=== PATIENT | female | born 1980 | race Caucasian/White ===

== ENCOUNTER 2022-08-21 13:52 | Outpatient (CLI) | payer OTHER, MEDICAID, SELFPAY ==
--- NOTE | 2022-08-21 14:00 | CRLHL7_ITS ---
For Patients: As a result of the Cures Act, medical imaging exams and procedure reports are released immediately into your electronic medical record. You may view this report before your referring provider. If you have questions, please contact your health care provider. BILATERAL SCREENING MAMMOGRAM WITH COMPUTER-AIDED DETECTION AND TOMOSYNTHESIS TECHNIQUE: CC and MLO views were obtained. These mammographic images have been obtained using full-field digital technique. These mammographic images were interpreted with the benefit of computer-aided detection. Breast Tomosynthesis was used in this interpretation. COMPARISON FILM: 03/14/2021. FINDINGS: The breasts are heterogeneously dense, which may obscure small masses IMPRESSION: There is no radiographic evidence for malignancy. ASSESSMENT: BI-RADS Category 1: Negative RECOMMENDATION: Routine screening mammogram in 1 year. A lay language report of this examination will be provided to the patient. Gonzalez Romo M.D. Diagnostic Radiologist [email or web address] Transcribed: 7:50 p.m. JANINA/Dictated by: Gonzalez Romo MD @ 08/22/2022 12:37:00 PM (Electronically Signed)
== END 2022-08-21 13:53 | disposition home or self-care (01) ==
PROVIDERS: PCP Family Medicine; Visit Provider Obstetrics & Gynecology
DX: Z12.31 Encounter for screening mammogram for malignant neoplasm of breast (principal); R92.2 Inconclusive mammogram
CPT/HCPCS: 77063; 77067

== ENCOUNTER 2022-10-10 11:58 | Outpatient (CLI) | payer OTHER, MEDICAID, SELFPAY ==
[2022-10-10 21:40] LABS: Cholesterol* 156 mg/dL (90-199)
[2022-10-10 21:41] LABS: Glucose* 79 mg/dL (60-115); HDL Cholesterol* 71 mg/dL (>=50); LDL Cholesterol Calculated 73 mg/dL (<100); Triglycerides* 60 mg/dL (40-149)
[2022-10-10 21:54] LABS: Vitamin D 25 Hydroxy* 20 ng/mL (30-80)
== END 2022-10-10 11:59 | disposition home or self-care (01) ==
PROVIDERS: PCP Family Medicine; Visit Provider Obstetrics & Gynecology
DX: Z13.1 Encounter for screening for diabetes mellitus (principal); Z13.6 Encounter for screening for cardiovascular disorders; Z86.39 Personal history of other endocrine, nutritional and metabolic disease; Z13.29 Encounter for screening for other suspected endocrine disorder
CPT/HCPCS: 80061; 82306; 82947

== ENCOUNTER 2022-11-05 14:54 | Outpatient (CLI) | payer OTHER, MEDICAID, SELFPAY ==
--- NOTE | 2022-11-05 15:00 | CRLHL7_ITS ---
For Patients: As a result of the Century Cures Act, medical imaging exams and procedure reports are released immediately into your electronic medical record. You may view this report before your referring provider. If you have questions, please contact your health care provider. INDICATION: IRREGULAR BLEEDING COMPARISON: 05/25/2021 TECHNIQUE: 2D bassett scale and color Doppler images were acquired of the pelvis using a transabdominal and transvaginal approach. FINDINGS: Sonographic images demonstrate a normal size and smooth outer contour of the uterus. Uterus measures 8.2 cm in length by 3.6 cm in AP diameter by 5.0 cm in transverse dimension. The myometrium has a heterogeneous echotexture. No uterine fibroid. Partial septate endometrium again measuring 4 millimeters on the left and 4 millimeters on the right. A small amount of fluid is present within the right horn. The right ovary measures 2.9 x 1.6 x 2.1 cm in size and the left ovary measures 2.1 x 1.3 x 1.5 cm. The ovaries demonstrate normal arterial and venous blood flow on color Doppler analysis. There are no suspicious fluid collections within the cul-de-sac. IMPRESSION: The endometrium measures 4 millimeters within the right horn and 4 millimeters in the left horn. A small amount of fluid is present within the right endometrial horn. No uterine fibroid or polyp. Dictated by Gonzalez Romo MD @ 11/06/2022 8:45:02 AM (Electronically Signed)
== END 2022-11-05 14:55 | disposition home or self-care (01) ==
LOC: US 14:55
PROVIDERS: PCP Family Medicine; Visit Provider Physician Assistant
DX: N92.6 Irregular menstruation, unspecified (principal)
CPT/HCPCS: 76830; 76856

== ENCOUNTER 2023-08-22 09:01 | Outpatient (CLI) | payer OTHER, MEDICAID, SELFPAY ==
--- NOTE | 2023-08-22 09:15 | CRLHL7_ITS ---
For Patients: As a result of the Cures Act, medical imaging exams and procedure reports are released immediately into your electronic medical record. You may view this report before your referring provider. If you have questions, please contact your health care provider. BILATERAL SCREENING MAMMOGRAM WITH COMPUTER-AIDED DETECTION AND TOMOSYNTHESIS TECHNIQUE: CC and MLO views were obtained. These mammographic images have been obtained using full-field digital technique. These mammographic images were interpreted with the benefit of computer-aided detection. Breast Tomosynthesis was used in this interpretation. COMPARISON FILM: 08/21/22, 03/14/21. FINDINGS: There are scattered areas of fibroglandular density IMPRESSION: There is no radiographic evidence for malignancy. ASSESSMENT: BI-RADS Category 1: Negative RECOMMENDATION: Routine screening mammogram in 1 year. A lay language report of this examination will be provided to the patient. Gonzalez Romo M.D. Diagnostic Radiologist [email or web address] Transcribed: 1:16 p.haile monique/Dictated by: Gonzalez Romo MD @ 08/22/2023 10:23:00 AM (Electronically Signed)
== END 2023-08-22 09:02 | disposition home or self-care (01) ==
LOC: MAMMO 09:01
PROVIDERS: PCP Family Medicine; Visit Provider Obstetrics & Gynecology
DX: Z12.31 Encounter for screening mammogram for malignant neoplasm of breast (principal)
CPT/HCPCS: 77063; 77067

== ENCOUNTER 2023-11-04 09:59 | Outpatient (CLI) | payer OTHER, MEDICAID, SELFPAY | END 2023-11-04 10:00 | disposition home or self-care (01) | PROVIDERS: PCP Family Medicine; Visit Provider Obstetrics & Gynecology | DX: R10.2 Pelvic and perineal pain (principal); L65.9 Nonscarring hair loss, unspecified | CPT/HCPCS: 82671; 84144; 84443 ==

== ENCOUNTER 2023-12-04 10:31 | Outpatient (CLI) | payer OTHER, MEDICAID, SELFPAY | END 2023-12-04 10:32 | disposition home or self-care (01) | PROVIDERS: PCP Family Medicine; Visit Provider Family Medicine | DX: Z01.818 Encounter for other preprocedural examination (principal); E55.9 Vitamin D deficiency, unspecified; E53.8 Deficiency of other specified B group vitamins | CPT/HCPCS: 80048; 82306; 85025 ==

== ENCOUNTER 2023-12-17 06:56 | Day surgery (SDC) | payer OTHER, MEDICAID, SELFPAY ==
[2023-12-17] VITALS (29 sets, daily range): BP systolic 110–154; BP diastolic 58–100; PULSE 54–114; RESP 12–18; TEMP 36.1–37.2; O2SAT 95–100; BMI 40.8
--- OUTSIDE RECORDS SUMMARY | 2023-12-17 06:59 | XMS_ITS | Clinical Summary ---
Author Name Unknown Organization [facility] Address [address] [place] [address] Care Team Providers Care Wellness Nurse Rn Name Role Phone Unavailable Primary Care Provider Unavailabl e Source Comments Patient records contain information from all sites at [facility]. For routine questions regarding patient records, call [phone] during business hours, M-F 8:00 AM - 5:00 PM Central Time. Record requests for emergency care only can be directed to [phone] at any time.[facility] Allergies Active Allergy Reactions Criticality Noted Date Comments Adhesive Tape-Silicones Other (see comments) Propofol Other (see comments) 06/12/2010 Bee Pollen Anaphylaxis 08/19/2009 Droperidol Anxiety 12/03/2010 Metoclopramide Other (see comments) 06/24/2017 Ondansetron Other (see comments) 04/25/2013 feel like I am climbing the nayak. Phenothiazines Other (see comments) 01/18/2013 jittery Prochlorperazine Anxiety 12/03/2010 [place] Jelly Anaphylaxis 05/18/2009 Scopolamine Rash 07/29/2017 Sumatriptan Headache 06/28/2015 Medications Medication Sig Dispensed Refills Start Date End Date Status albuterol (for_PROVENTIL HFA,VENTOLIN HFA) 90 mcg/actuation inhaler Inhale 2 puffs every 4 (four) hours as needed (SOB). 0 Active HYDROcodone-acet aminophen (NORCO) 5-325 mg per tabletIndication s:Acute Pain Take 2 tablets by mouth every 6 (six) hours as needed for pain Indication: Acute Pain. 10 tablet 0 04/14/2019 Active norgestimate-eth inyl estradiol (SPRINTEC, 28,) 0.25- mg-35 mcg per tablet Take 1 tablet by mouth daily. Discard placebo week and start next pill pack 112 tablet 4 04/28/2019 Active EPINEPHrine 0.3 mg/0.3 mL injection syringe Inject 0.3 mL (0.3 mg total) intramuscularly as needed for anaphylaxis. 2 each 1 05/12/2023 Active Active Problems No known active problems Resolved Problems Problem Noted Date Diagnosed Date Resolved Date High Risk 04/07/2018 10/08/20 18 Elderly Multigravi da Greater Than 35 Year Old 04/07/2018 10/08/2018 Immunizations Name Administration Dates Next Due DTaP (Infanrix, Tripedia) 07/18/2007 Influenza (IM) Preservative Free 09/11/2010 Influenza, Unspecified 08/09/2014,08/04/2013 Tdap 05/19/2013 Family History Medical History Relation Name Comments Rashes / Skin problems Brother Skin cancer Brother Asthma Maternal Grandmother Breast cancer Maternal Grandmother Migraines Maternal Grandmother Ovarian cancer Maternal Grandmother Arthritis Mother Depression Mother Hypertension Mother Mental illness Mother Intellectual Disability Sister Learning disabilities Sister Seizures Sister Relation Name Status Comments Brother Maternal Grandmother Mother Sister Social History Tobacco Use Types Packs/Day Years Used Date Smoking Tobacco: Never Smokeless Tobacco: Never Alcohol Use Standard Drinks/Week Comments No 0 (1 standard drink = 0.6 oz pur e alcohol) prior:occ Nutrition Answer Date Recorded Nutrition: EVOO Fat Source Unknown 12/28 Nutrition: Servings of Fruits/Vegetables per Day Not on file 12/28/2020 Dental Answer Date Recorded Dental: Regular Dentist Unknown 12/29/19 21 Sex and Gender Information Value Date Recorded Sex Assigned at Female 03/09/2019 2:31 PM CDT Gender Identity Female 03/09/2019 2:31 PM CDT Sexual Orientation Straight 03/09/2019 2: 31 PM CDT Last Filed Vital Signs Vital Sign Reading Time Taken Comments Blood Pressure 125/77 05/12/2023 3:45 PM CDT Pulse 109 05/12/2023 4:00 PM CDT Temperature 37.4 ??C (99.3 ??F) 04/14/2019 5:30 PM CD T Respiratory Rate 23 05/12/2023 1:45 PM CDT Oxygen Saturation 97% 05/12/2023 4:00 PM CDT Inhaled Oxygen Concentration - - Weight 102 kg (223 lb 15.8 oz) 05/12/2023 1:00 P M CDT Height 157.5 cm (5' 2) 04/14/2019 1:59 PM CDT Body Mass Index 40.97 04/14/2019 1:59 PM CDT Plan of Treatment Health Maintenance Due Date Last Done Comments CT Colonography 1978 Cologuard 1978 Colonoscopy 1978 Colorectal Cancer Screening 1978 FIT 1978 Hepatitis C Screening 1978 Lipid (Cholesterol) Screening 1978 Hepatitis B Vaccines (2 of 3 - 19+ 3-dose series) 09/23/2020 08/26/2020 Mammogram 11/24/2020 11/24/2019 Fasting Glucose for Diabetes Screening 04/14/2022 04/14/2019, 04/27/2013, 01/14/2013, Additional history exists Cervical Cancer Screening 04/07/20232017, 04/07/2018, 12/30/2012 COVID-19 Vaccine (24 season) 2023 01/20/2021, 10/25/2020 Influenza Vaccine (#1) 2023 , 10/31/2019, 09/29/2018, Additional history exists Depression Screening (Annual PHQ-2) 10/28/2023 DTaP,Tdap,and Td Vaccines (4 - Td or Tdap) 11/04/2033 11/04/2023, 05/19/2013, 07/18/2007, Additional history exists HIV Screening Completed 04/07/2018, 12/30/2012 HPV Vaccines Aged Out No longer eligi ble based on patient's age to complete this topic Pneumococcal vaccine (0-64 years) Aged Out No longer eligible based on patient's age to complete this topic Medical Devices Implanted Type Area Printed Circuit Board Reworker Device Identifier Shelf Expiration Date Model / Serial / Lot Syn Neno Chua [id number] - Armando [id number] Implanted:Qty: 1 on 09/08/2010 Hardware e.g. pins/screws/ rods DepHexaTech Description:Device Manufactu rer - Synthes. Device Status Text - [id number]. Advance Directives For more information, please contact: [phone] Documents on File Type Date Recorded Patient Tattoo Artist Expl anation Advance Directives 09/08/2010 12:00 AM Elena dee document. See document viewer.
--- OUTSIDE RECORDS SUMMARY | 2023-12-17 06:59 | XMS_ITS | Referral Summary ---
Author Name Unknown Organization [facility] Address [address] [place] [address] Care Team Providers Care Casino Host Name Role Phone Unavailable Primary Care Provider Unavailabl e Source Comments Patient records contain information from all sites at [facility]. For routine questions regarding patient records, call [phone] during business hours, M-F 8:00 AM - 5:00 PM Central Time. Record requests for emergency care only can be directed to [phone] at any time.[facility] Allergies Active Allergy Reactions Criticality Noted Date Comments Adhesive Tape-Silicones Other (see comments) Propofol Other (see comments) 06/12/2010 Bee Pollen Anaphylaxis 08/19/2009 Droperidol Anxiety 12/03/2010 Metoclopramide Other (see comments) 06/24/2017 Ondansetron Other (see comments) 04/25/2013 feel like I am climbing the nayak. Phenothiazines Other (see comments) 01/18/2013 jittery Prochlorperazine Anxiety 12/03/2010 [place] Jelly Anaphylaxis 05/18/2009 Scopolamine Rash 07/29/2017 Sumatriptan [...] Free 09/11/2010 Influenza, Unspecified 08/09/2014,08/04/2013 Tdap 05/19/2013 Social History Tobacco Use Types Packs/Day Years [...] 04/14/2019 1:59 PM CDT Plan of Treatment Not on file Medical Devices Implanted Type Area Mine Inspector Federal Device Identifier Shelf Expiration Date Model / Serial / Lot Alexey Chua 5.0x150 - Armando [id number] Implanted:Qty: 1 on 09/08/2010 Hardware e.g. pins/screws/ rods Depuy Synthes Description:Device Manufactu rer - Synthes. Device Status Text - [id number]. Advance Directives For more information, please contact: [phone] Documents on File Type Date Recorded Patient Instructor Product Inspection Expl anation Advance Directives 09/08/2010 12:00 AM Elena dee document. See document viewer.
--- OUTSIDE RECORDS SUMMARY | 2023-12-17 06:59 | XMS_ITS | Encounter Summary ---
Author Name Unknown Organization [facility] Address [address] [place] [address] Care Team Providers Care Associate Trainer Name Role Phone Unavailable Primary Care Provider Unavailabl e Reason for Visit * Reason Comments Insect Bite Angioedema Patient was stung by a wasp, gave herself 2 epi pens Encounter Details Date Type Department Care Team ([facility] Contact Info) Description 05/12/2023 12:50 PM CDT - 05/12/2023 4:09 PM CDT Emergency [facility] [address] [place] [phone] Wenceslao Campbell P.A.-C. [address] [place] [address] [phone] Allergy Bee Sting Initial (Primary Dx) Discharge Disposition: Home or Self Care Social History Tobacco Use Types Packs/Day Years [...] Orientation Straight 03/09/2019 2: 31 PM CDT documented as of this encounter Last Filed Vital Signs Vital Sign Reading Time Taken Comments Blood Pressure 125/77 05/12/2023 3:45 PM CDT Pulse 109 05/12/2023 4:00 PM CDT Temperature - - Respiratory Rate 23 05/12/2023 1:45 PM CDT Oxygen Saturation 97% 05/12/2023 4:00 PM CDT Inhaled Oxygen Concentration - - Weight 102 kg (223 lb 15.8 oz) 05/12/2023 1:00 P M CDT Height - - Body Mass Index 40.97 04/14/2019 1:59 PM CDT documented in this encounter Discharge Instructions * Attachments The following attachments cannot be sent through Care Everywhere. * Bee Wasp or Hornet Sting Adult (Martiniquais) documented in this encounter Medications at Time of Discharge Medication Sig Dispensed Refills Start Date End Date albuterol (for_PROVENTIL HFA,VENTOLIN HFA) 90 mcg/actuation inhaler Inhale 2 puffs every 4 (four) hours as needed (SOB). 0 EPINEPHrine 0.3 mg/0.3 mL injection syringe Inject 0.3 mL (0.3 mg total) intramuscularly as needed for anaphylaxis. 2 each 1 05/12/2023 HYDROcodone-acetamin ophen (NORCO) 5-325 mg per tabletIndications:Ac kiana Pain Take 2 tablets by mouth every 6 (six) hours as needed for pain Indication: Acute Pain. 10 tablet 0 04/14/2019 norgestimate-ethinyl estradiol (SPRINTEC, 28,) 0.25- mg-35 mcg per tablet Take 1 tablet by mouth daily. Discard placebo week and start next pill pack 112 tablet 4 04/28/2019 documented as of this encounter ED Notes * Wenceslao Campbell P.A.-C. - 05/12/2023 4:09 PM CDT Images from the original note were not included. SUBJECTIVE CHIEF COMPLAINT/REASON FOR VISIT Insect Bite (/) and Angioedema (Patient was stung by a wasp, gave herself 2 epi pens) HISTORY OF PRESENT ILLNESS Patient presents emergency department chief complaint of wasp sting to right thumb. 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 Patient started having shortness of breath with chest tightness and sensation of throat tightening. She self administered x2 epinephrine autoinjector to left thigh. She states she had some improvement of symptoms but still felt like she was experiencing shortness of breath. Upon arrival patient is increased anxiety, tachypneic, able to speak complete sentences. She does have redness and swelling to her right thumb where the insect injected her dorsum of herthumb. Otherwise no acute hives formation seen. She is to injection points into her left anterior thigh. History provided by: Patient and significant other staff interpreter needed/used: no REVIEW OF SYSTEMS Constitutional: Negative for chills, diaphoresis and fatigue. HENT: Negative for rhinorrhea, sore throat, trouble swallowing and voice change. Eyes: Negative for louise-orbital edema and visual disturbance. Respiratory: Positive for cough, chest tightness, shortness of breath and wheezing. Negative for apnea and stridor. Cardiovascular: Negative for chest pain. Gastrointestinal: Negative for abdominal pain, nausea and vomiting. Musculoskeletal: Negative for myalgias. Skin: Negative for rash. Neurological: Negative for dizziness, weakness and light-headedness. OBJECTIVE Initial Vitals Temp -- Pulse Rate 05/12/23 1245 (!) 136 Heart Rate 05/12/23 1245 (!) 134 Resp Rate 05/12/23 1245 14 Blood Pressure 05/12/23 1245 (!) 153/131 SpO2 05/12/23 1245 100 % Pain Score 05/12/23 1247 8 PHYSICAL EXAMINATION Constitutional: Nursing note and vitals reviewed. Vital signs are normal. She is active and cooperative. HENT: Nose: Nose normal. No nasal discharge. Mouth/Throat: Uvula is midline and oropharynx is clear and moist. Mucous membranes are moist. No uvula swelling. Patient has sensation throat tightness but exam reveals no sign of edema to soft tissue. Tongue hasnormal appearance. Eyes: Conjunctivae are normal. Pupils are equal, round, and reactive to light. Cardiovascular: Normal rate and regular rhythm. Pulses are strong and palpable. Capillary refill: takes less than 3 secondsEdema: no edema noted Pulmonary/Chest: Tachypnea noted. Expiration is prolonged. She has wheezes. Patient has coarse rales and wheezing throughout chest. No signs of retraction. Musculoskeletal: General: Normal range of motion. Cervical back: Normal range of motion. Neurological: Alert and oriented to person, place, and time. Skin: Skin is warm, dry, intact and normal color. She is not diaphoretic. ASSESSMENT/PLAN Assessment and Plan Patient presents emergency department with chief complaint of shortness of breath and chest tightening after suffering a wasp sting to her right thumb. Patient apparently using on used epinephrine autoinjector with dose delivered but felt that it may not been adequate so he use the same autoinjector twice. Patient is still experiencing chest tightness, wheezing so she presented to the emergency department. Exam shows patient has coarse rales and some wheezing throughout chest. Upper airway is intact and she is able to speak in complete sentences. Patient is not exhibiting any rash other than redness around the injection site to her dorsum of her right thumb. Patient was given DuoNeb with improvement in lung sounds. She is also given famotidine IV and diphenhydramine. She also experienced some nausea and states that Phenergan is a better choice for her so Phenergan was given withresolution of nausea. Patient was observed for a few hours and her lung sounds remain clear, no rash development, she is able to speak in complete sentences states she is feeling much better. Recommendations for diphenhydramine and loratadine p.o. for the next few days. She can be discharged safelyhome with her if she develops any acute shortness of breath or hives like rash she can return to the emergency department soon as possible. I did refill her epinephrine autoinjector for her.. DIFFERENTIAL DIAGNOSES Lost sting calm my anaphylaxis, allergic reaction, shortness of breath. PROBLEMS ADDRESSED THIS VISIT Patient has suffered wasp sting to right hand which apparently induced allergic reaction. Patient is treated with antihistamines and observation. And her situation improved.. ED Course as of 05/14/231926 Sun May 12, 2023 1317 Patient's oxygen saturation still 100%. Medications are on board and she is exhibiting restingtremors fingertips which is expected with DuoNeb. Reassessment of lung sounds shows they are clear equal bilateral. Oropharynx shows no sign of any edema. Patient is able to talk in complete sentences. She is complaining of some mild nausea so were going to give her dose of Phenergan which she saysworks better for her than other medications. 1433 Are clear equal bilateral. Patient is a monitoring situation at this time. 1601 Patient states he feels much better and feels confident be discharged home. Final Diagnoses: as of 05/14/231926 Allergy Bee Sting Initial Wenceslao Campbell P.A.-C. 05/14/231933 documented in this encounter Plan of Treatment Not on file documented as of this encounter Visit Diagnoses Diagnosis Allergy Bee Sting Initial- Primary documented in this encounter Administered Medications Inactive Administered Medications - up to 3 most recent administrations Medication Order MAR Action Action Date Dose Rate Site diphenhydrAMINE injection 50 mg (BENADRYL) 50 mg, intravenous, Once, On 05/12/23 at 1252, For 1 dose Given 05/12/2023 12:57 PM CDT 50 mg famotidine 40 mg in NaCl 0.9% IVPB (PEPCID) 40 mg, intravenous, at 216 mL/hr, Administer over 15 Minutes, Once, On 05/12/23 at 1252, For 1 dose, Drug Monitoring Program: Pharmacist to adjust medication dosing based on indication and drug clearance factors. New Bag 05/12/2023 1:13 PM CDT 40 mg 216 mL/hr ipratropium-albuteroL 0.5-2.5 mg/3 mL nebulizer solution 3 mL (DUONEB) 3 mL, nebulization, Once, On 05/12/23 at 1253, For 1 dose Given 05/12/2023 12:57 PM CDT 3 mL promethazine injection 12.5 mg (PHENERGAN) 12.5 mg, intramuscular, Once, On 05/12/23 at 1333, For 1 dose Given 05/12/2023 1:39 PM CDT 12.5 mg Right Deltoid documented in this encounter Active and Recently Administered Medications Times are shown in CDT. Scheduled Medication Order 05/10/2023 05/11/2023 05/12/2023 diphenhydrAMINE injection 50 mg (BENADRYL) (COMPLETED) 50 mg, intravenous, Once, On 05/12/23 at 1252, For 1 dose 1257 (Given - Provid er: Dalia Muñiz R.N.) famotidine 40 mg in NaCl 0.9% IVPB (PEPCID) (COMPLETED) 40 mg, intravenous, at 216 mL/hr, Administer over 15 Minutes, Once, On 05/12/23 at 1252, For 1 dose, Drug Monitoring Program: Pharmacist to adjust medication dosing based on indication and drug clearance factors. 1313 (New Bag - Prov ider: Dalia Muñiz R.N.)1330 (Stopped - Provider: Dalia Muñiz R.N.) ipratropium-albuteroL 0.5-2.5 mg/3 mL nebulizer solution 3 mL (DUONEB) (COMPLETED) 3 mL, nebulization, Once, On 05/12/23 at 1253, For 1 dose 1257 (Given - Provid er: Daila Muñiz R.N.) promethazine injection 12.5 mg (PHENERGAN) (COMPLETED) 12.5 mg, intramuscular, Once, On 05/12/23 at 1333, For 1 dose 1339 (Given - Provid er: Dalia Muñiz R.N.) documented in this encounter
--- OUTSIDE RECORDS SUMMARY | 2023-12-17 06:59 | XMS_ITS | Continuity of Care Document ---
Author Name Unknown Organization [facility] Address [address] [address] [place] [address] Phone Care Team Providers Care Mechanical Systems Engineer Name Role Phone Bing Christianson CRNA Unavailable Unavailable Allergies, Adverse Reactions, Alerts Substance Reaction Status Criticality scopolamine Active No Information risperidone Active No Information prochlorperazine Active No Informat ion ondansetron Active No Information droperidol Active No Information bee pollen Active No Information adhesive tape Rash Active No Information morphine Nausea/Vomiting Active No Informati on Medications Medication Instructions Dosage Effective Dates (start - stop) Status Comments levalbuterol 0.31 mg/3 mL solution for nebulization take 1 by Inhalation route once 1 - Active fluticasone propionate 50 mcg/actuation nasal spray,suspension spray 1 spray by Intranasal route every day in each nostril 1 spray - Active EpiPen 0.3 mg/0.3 mL injection, auto-injector inject (0.3MG) by intramuscular route as needed 0.3 MG - Active medroxyprogesterone 10 mg tablet take 1 tablet by oral route every day 10 MG - No Longer Active Vitamin D3 50 mcg (2,000 unit) tablet take 1 Tablet by Oral route every day 1 Tablet - No Longer Active Procedures Procedure Date Colonoscopy Flex; W/bx 1/mx Ugi Endo; W/bx 1/mx Level Iv-surg Path Gross/micro 21 New Level 3 Init Inpt Cons New/est Mod-hi 7 Advance Directives Directive Yes / No Effective Date File Name No Information Encounters Encounter Description Practice Location Reason(s) For Visit Diagnoses Date Provider Providers Copied on Encounter [facility], [address] [address], [place], [id number], [place] tel:[phone] [facility] No Information 1 Sammy Collinsesa. [address] [address] [facility] [address], [place], [id number], [place]. tel:[phone] Referring Provider: Maurilio Mcdonald MD, [address] [place] [address], [address]. tel:[phone] [facility], [address] [address], [place], [id number], [place] tel:[phone] [facility] GI Symptoms or Concerns (chief complaint) Diarrhea, unspecified typeNauseaDia rrhea, unspecified typeUnspecifi ed abdominal pain 1 Harry Thorpe. [address] [place] [address], [id number], [place]. tel:[phone] Giuliana Silva MD. tel:[phone] ng Provider: Referral Self, USE FOR SELF REFERRALS. [facility] 3 [facility], [address] [address], [place], [id number], [place] tel:[phone] [facility] GI Symptoms or Concerns (chief complaint) Left lower quadrant abdominal painDiarrhea, unspecified typeDark stoolsNausea 1 Ceci ROBERTS Lillian. [address] [facility] [facility] [address], [place], [id number], [place]. tel:[phone] Referring Provider: Referral Self, USE FOR SELF REFERRALS. [facility], [address] [address], [place], [id number], [place] tel:[phone] [facility] No Information Jun- Ana Jorgensen. [address], [place], [place], [id number], [place]. tel:[phone] Init Inpt Cons New/est Mod-hi [facility], [address] [address], [place], [place], [id number], [place] tel:[phone] [facility] No Information Jun- 7 No Information Referring Provider: Jay Palm MD , [address] [place], [address]. tel:[phone] Family History Family Member Type Diagnosis Age At Onset Mother Problem (finding) GERD Mother Problem (finding) diverticulitis of colon Mother Problem (finding) Colon polyps Immunizations Vaccine Date Status Comments SARS-COV-2 (COVID-19) vaccin e, vector non-replicating, recombinant spike protein-Ad26, preservative free, 0.5 mL administered Note: [facility] bi- directional interface ; Source: Other Registry SARS-COV-2 (COVID-19) vaccin e, mRNA, spike protein, LNP, preservative free, 30 mcg/0.3mL dose administered Note: [facility] bi-direct ional interface ; Source: Other Registry hepatitis B vaccine, unspeci fied formulation administered Note: [facility] bi-direct ional interface ; Source: Other Registry Afluria Qd administered Note: [facility] bi-directional interface ; Source: Other Registry Afluria Qd administered Note: [facility] bi-directional interface ; Source: Other Registry Afluria Qd administered Note: [facility] bi-directional interface ; Source: Other Registry Havrix administered Note: [facility] bi-d irectional interface ; Source: Other Registry Havrix administered Note: [facility] bi-d irectional interface ; Source: Other Registry Influenza administered Note: [facility] bi-d irectional interface ; Source: Other Registry seasonal influenza, intrader mal, preservative free administered Note: [facility] bi-direct ional interface ; Source: Other Registry influenza virus vaccine, unspecified formulation administered Note: [facility] bi-di rectional interface ; Source: Other Registry influenza virus vaccine, unspecified formulation administered Note: [facility] bi-di rectional interface ; Source: Other Registry tetanus toxoid, reduced diphtheria toxoid, and acellular pertussis vaccine, adsorbed administered Note: [facility] b i-directional interface ; Source: Other Registry seasonal influenza, intrader mal, preservative free administered Note: [facility] bi-direct ional interface ; Source: Other Registry Influenza, seasonal, injectable administe red Note: [facility] bi- directional interface ; Source: Other Registry tetanus toxoid, reduced diphtheria toxoid, and acellular pertussis vaccine, adsorbed administered Note: [facility] b i-directional interface ; Source: Other Registry Payers Payer name Insurance type Covered green party ID Authormoona tidemetrio(s) Preferred One Admin [facility] CI [id number] [employer] /SD CI [id number] Social History Type Description Quantity Date Captured Comments Sex Female Smoking Status No Information Chief Complaint And Reason For Visit No Information Reason For Referral Reason For Referral No Information Plan Of Treatment Date Type Action Status Referral Ordered: Colonoscopy Appointment date/timeframe: 09/19/2021 ordered Referral Ordered: EGD Appointment date/timeframe: 09/19/2021 ordered History Of Present Illness Encounter Date Complaint History Of Prese nt Illness GI Symptoms or Concerns GI Symptoms or Concerns Adeline north is referred to our office by Dr. Giuliana Tanner for evaluation of lower abdominal pain, diarrhea, and dark-colored stools.The patient was seen via a virtual visit. She gave verbal consent for the visit. She was the only person other than the provider who participated in today's visit.The patient reports a lifelong history of irregular menstrual cycles. She would typically only have very minor bleeding for 1 day out of every 3 to 4 months. She also complains of a chronic dull aching discomfort in the mid suprapubic pubic area that has been present for many years. The pain has become sharper in nature over the last several months. The pain also seems to be more localized in the left lower quadrant over the past several months. Typically, the discomfort occurs a few times a day and can last for about 30 minutes when she has the more significant pain episodes. There is always a constant aching discomfort, but when the more sharp and stabbing pains occur, Functional Status Date Functional Assessmen t No Information Instructions Date Instruction Additional Infor dilciageorge Colon Cancer Prevention Related to Diarrhea, unspecified type 1. We will get you s cheduled for an EGD to assess for a cause of the dark colored stools.2. Will also plan to biopsy the duodenum to look for celiac disease as a possible cause of your long standing diarrhea issues. Related to Dark stools 1. We will get you s cheduled for a colonoscopy exam with random biopsies to assess for microscopic colitis as a cause of the diarrhea.2. If microscopic colitis is found, will consider treatment with regular dosing of peptobismol, Imodium or Budesonide. Related to Left lower quadrant abdominal pain Assessments Type Assessment Date No Information Patient Care Teams Name Effective Dates (start - stop) Status Members No Information
--- OUTSIDE RECORDS SUMMARY | 2023-12-17 06:59 | XMS_ITS ---
Author Name Unknown Organization [facility] Address [address] [place] [address] Care Team Providers Care Drafter Cartographic Name Role Phone Unavailable Unavailable Unavailable Surgery Details Not on file Complications Check Surgery Details section. Procedure Estimated Blood Loss Check Surgery Details section. Procedure Findings Check Surgery Details section. Procedure Specimens Taken Check Surgery Details section.
--- OUTSIDE RECORDS SUMMARY | 2023-12-17 07:00 | XMS_ITS | Referral Summary ---
Author Name Unknown Organization [facility] Address [address] [place] [address] Care Team Providers Care Enrober Tender Name Role Phone No Ref-Primary, Physician Primary Care Provider Allergies Active Allergy Reactions Criticality Noted Date Comments Bee Pollen Anaphylaxis High 02/13/2010 Bees Anaphylaxis High 06/24/2017 Prochlorperazine Visual Disturbance 04/25/2013 Other reaction(s): Intolerance-Can't Take feels like i am climbing the nayak. Droperidol 01/18/2013 Other reaction(s): Other, see comments Rosana, skin crawling Other reaction(s): Intolerance-Can't Take ??Feels like I am climbing the nayak. Liquid Adhesive Rash Low 02/14/2010 Phenothiazines 01/18/2013 Other reaction(s): Other, see comments rosaan Metoclopramide Visual Disturbance 06/24/2017 [place] Jelly Anaphylaxis High 05/18/2009 Scopolamine 04/25/2013 Other reaction(s): Bleeding (Patch) At site Sumatriptan 06/28/2015 Other reaction(s): Headache Ondansetron Visual Disturbance 01/18/2013 Other reaction(s): Intolerance-Can't Take feel like I am climbing the nayak. Other reaction(s): Other, see comments rosana Medications Medication Sig Dispensed Refills Start Date End Date Status EPINEPHrine (EPIPEN/ADRENACLICK/ OR ANY BX GENERIC EQUIV) 0.3 MG/0.3ML injection 2-pack Inject 0.3 mg into the muscle as needed for anaphylaxis 0 Active albuterol (PROAIR HFA/PROVENTIL HFA/VENTOLIN HFA) 108 (90 BASE) MCG/ACT Inhaler Inhale 2 puffs into the lungs every 6 hours 0 Active Active Problems Problem Noted Date Diagnosed Date RUQ pain 06/28/2017 Abdominal pain 06/28/2017 Acute cholecystitis 06/24/2017 Social History Tobacco Use Types Packs/Day Years Used Date Smoking Tobacco: Never Smokeless Tobacco: Never Alcohol Use Standard Drinks/Week Comments Yes 0 (1 standard drink = 0.6 oz pur e alcohol) Adolescent Education Answer Date Record ed Getting School Help Needed Not on file 07/19 Sex and Gender Information Value Date Recorded Sex Assigned at Female 09/15/2020 7:56 PM CHART PICKER Gender Identity Female 09/15/2020 7:56 PM CHART PICKER Sexual Orientation Straight 09/15/2020 7: 56 PM CHART PICKER Last Filed Vital Signs Vital Sign Reading Time Taken Comments Blood Pressure 157/112 04/10/2018 2:44 PM CDT Pulse 81 06/30/2017 8:24 AM CDT Temperature 36.8 ??C (98.2 ??F) 04/10/2018 12:18 PM C DT Respiratory Rate 20 04/10/2018 12:18 PM CDT Oxygen Saturation 100% 04/10/2018 12:18 PM CDT Inhaled Oxygen Concentration - - Weight 97.5 kg (215 lb) 06/28/2017 12:03 PM CDT Height 157.5 cm (5' 2) 06/28/2017 12:03 PM CDT Body Mass Index 39.32 06/28/2017 12:03 PM CDT Plan of Treatment Not on file Advance Directives For more information, please contact: [phone] Latest Code Status on File Code Status Date Activated Date Inactivated Comments Full Code 06/28/2017 6:29 PM 06/30/2017 4:46 PM Code Status History Code Status Date Activated Date Inactivated Comments Full Code 06/24/2017 5:55 AM 06/26/2017 6:22 PM Care Teams Enrober Tender Relationship Specialty Start Date End Date No Ref-Primary, Physician PCP - General 04/10/18
--- OUTSIDE RECORDS SUMMARY | 2023-12-17 07:00 | XMS_ITS | Clinical Summary ---
Author Name Unknown Organization [facility] Address [place], [place] [address] Care Team Providers Care 5Th Grade Teacher Name Role Phone Brit Butterfield Primary Care Provider [phone] Allergies Active Allergy Reactions Criticality Noted Date Comments Adhesive Rash 02/14/2010 Bee Pollen Anaphylaxis 02/13/2010 Prochlorperazine Intolerance-Can't Take 013 feels like i am climbing the nayak. Droperidol Intolerance-Can't Take 04/25/2013 Feels like I am climbing the nayak. Sumatriptan Headache 06/28/2015 Metoclopramide Visual Disturbances 06/24/2017 Phenothiazines *Unknown 01/18/2013 jittery Propofol *Unknown 06/12/2010 [place] Jelly Anaphylaxis High 05/18/2009 Scopolamine Bleeding 04/25/2013 (Patch) At site Ondansetron Intolerance-Can't Take 04/25/2013 feel like I am climbing the nayak. Medications Medication Sig Dispensed Refills Start Date End Date Status albuterol HFA (PRO-AIR,VENTOLIN, PROVENTIL) 90 mcg/actuation inhalerIndications :Asthma exacerbation Inhale 2 Puffs by mouth every 4 hours while awake. 1 Inhaler 0 06/28/2015 Active albuterol (PROVENTIL) 0.083 % neb solutionIndication s:Asthma exacerbation Inhale 3 mL via a nebulizer every 4 hours if needed for Shortness Of Breath. 1 box 0 06/28/2015 Active EPINEPHrine (EPIPEN) 0.3 mg/0.3 mL (1:1,000) injectionIndicatio ns:Asthma exacerbation Inject 0.3 mg intramuscular one time if needed for Allergic Reaction for up to 1 dose. 1 Each 0 06/28/2015 Active promethazine (PHENERGAN) 25 mg tabletIndications: Pain of upper abdomen Take 1 tablet by mouth every 6 hours if needed for Nausea/Vomiting. 10 tablet 0 11/09/2015 Active PNV cmb#95-ferrous fumarate-FA 28 mg iron- 800 mcg tab Take 2 tablets by mouth. 0 Active methylergonovine (METHERGINE) 0.2 mg tabletIndications: Spontaneous Take 1 tablet by mouth every 8 hours. 6 tablet 0 04/14/2018 Active HYDROcodone-acetam inophen, 5-325 mg, (NORCO) per tabletIndications: Spontaneous Take 1-2 tablets by mouth every 6 hours if needed for Pain (For moderate to severe pain.) Max acetaminophen dose: 4000 mg in 24 hrs. 6 tablet 0 04/14/2018 Active ibuprofen (ADVIL; MOTRIN) 600 mg tabletIndications: Spontaneous Take 1 tablet by mouth every 6 hours if needed for Pain. Maximum of 3200 mg in 24 hours. 30 tablet 1 04/14/2018 Active docusate (COLACE) 100 mg capsuleIndications :Spontaneous Take 1 capsule by mouth 2 times daily if needed for Constipation. 30 capsule 1 04/14/2018 Active Active Problems Problem Noted Date Diagnosed Date Closed avulsion fracture of middle phalanx of fi nger 09/26/2016 Resolved Problems Problem Noted Date Diagnosed Date Resolved Date (normal spontaneous vaginal delivery) 07/28/2013 09/26/2016 Hypertension complicating pr egnancy, childbirth and puerperium, antepartum 07/27/2013 Immunizations Name Administration Dates Next Due Tdap, Unspecified 05/19/2013 Family History Medical History Relation Name Comments Good Health Brother 2 Hyperlipidemia Mother Hypertension Mother Other Mother fibromyagia and obesity Seizures Sister 2 Good Health Son x 2 Relation Name Status Comments Brother 1 Alive Brother 2 Child Alive x 2 Father Alive no contact/no h istorian known Mother Alive Sister 1 Alive Sister 2 Son Social History Tobacco Use Types Packs/Day Years Used Date Smoking Tobacco: Never Smokeless Tobacco: Never Tobacco Cessation:Counseling Given: Yes Alcohol Use Standard Drinks/Week Comments Yes 0 (1 standard drink = 0.6 oz pur e alcohol) very rarely, one per week Sex and Gender Information Value Date Recorded Sex Assigned at Not on file Gender Identity Not on file Sexual Orientation Not on file Obstetrics History Para Term AB IAB SAB Ectopic Multiple Livin g Live Births 4 3 3 1 1 3 3 Date Outcome GA Total Labor Labor/2nd/3rd Weight Sex Delivery Anes PTL Melissa A1 A5 Name Cl in SAB SPONTANE O US 08/16 07 Term 37w 0d 2.75 kg (6 lb 1 oz) M Vag Epidu ral N Stella ng 10/16 08 Term 38w 0d 3.18 kg (7 lb) M Vag Epidu ral Y Stella ng Delivery Location:[facility] 07/28 Term 37w 6d 3.09 kg (6 lb 13 oz) F Vag Stella ng 9 9 FLOYD BG ( ABHINAV A ) Delivery Location:[facility] Last Filed Vital Signs Vital Sign Reading Time Taken Comments Blood Pressure 135/87 04/14/2018 8:15 PM CDT Pulse 97 04/14/2018 8:15 PM CDT Temperature 36.9 ??C (98.5 ??F) 04/14/2018 9:00 PM CD T Respiratory Rate 17 04/14/2018 8:15 PM CDT Oxygen Saturation 98% 04/14/2018 8:15 PM CDT Inhaled Oxygen Concentration - - Weight 101.2 kg (223 lb) 04/14/2018 4:31 PM CDT Height 158 cm (5' 2.21) 04/11/2018 9:12 AM CDT Body Mass Index 40.52 04/11/2018 9:12 AM CDT Plan of Treatment Health Maintenance Due Date Last Done Comments COVID-19 vaccine series (#1) 06/03/1979 HIV for age 15-65 1993 BMI (ht and wt on same day) for age 18+ 1996 Hepatitis C screening for age 18-79 1996 Depression screening for age 12+ 09/26/2017 09/26/2016 Tetanus booster 05/19/2023 05/19/2013 Influenza for age 9-49 06/28/2023 6 (Completed outside of [facility]) Colonoscopy through age 75 2023 Lipids for age 45-75 2023 Mammogram for age 45-75 2023 Pap test for age 21-65 10/10/2025 10/10/2022, 2021 Tdap Completed 05/19/2013 Pneumococcal series for age 6-64 Aged Out No longer eligible based on patient's age to complete this topic Advance Directives Latest Code Status on File Code Status Date Activated Date Inactivated Comments Full Code 04/14/2018 3:58 PM 04/14/2018 11:16 PM Code Status History Code Status Date Activated Date Inactivated Comments Full Code 07/28/2013 12:31 PM 07/29/2013 6:20 PM Full Code 07/28/2013 7:11 AM 07/28/2013 12:31 PM Full Code 07/27/2013 3:37 PM 07/28/2013 7:11 AM Full Code 07/27/2013 1:43 PM 07/27/2013 3:37 PM Care Teams 5Th Grade Teacher Relationship Specialty Start Date End Date Brit Butterfield PA PCP - General Physician Child Development Assistant 04/11/18
--- OUTSIDE RECORDS SUMMARY | 2023-12-17 07:00 | XMS_ITS | Clinical Summary ---
Author Name Unknown Organization [facility] Address [address] [place] [address] Care Team Providers Care Solar Designer Name Role Phone No Ref-Primary, Physician Primary [...] Phenothiazines 01/18/2013 Other reaction(s): Other, see comments rosana Metoclopramide Visual Disturbance 06/24/2017 [place] Jelly Anaphylaxis High 05/18/2009 Scopolamine 04/25/2013 Other [...] Sex Assigned at Female 09/15/2020 7:56 PM INVESTMENT COUNSELOR Gender Identity Female 09/15/2020 7:56 PM INVESTMENT COUNSELOR Sexual Orientation Straight 09/15/2020 7: 56 PM INVESTMENT COUNSELOR Last Filed Vital Signs Vital Sign Reading [...] 06/28/2017 12:03 PM CDT Plan of Treatment Health Maintenance Due Date Last Done Comments ADVANCE CARE PLANNING 1978 ANNUAL REVIEW OF HM ORDERS 1978 CT COLONOGRAPHY 1978 FIT 1978 FLEX SIG 1978 HEPATITIS B IMMUNIZATION (1 of 3 - 3-dose series) 1978 MAMMO SCREENING 1978 sDNA (Cologuard) 1978 COVID-19 Vaccine (#1) 06/03/1979 COLONOSCOPY 1988 COLORECTAL CANCER SCREENING 1988 HIV SCREENING 1993 HEPATITIS C SCREENING 1996 PAP 1999 YEARLY PREVENTIVE VISIT 11/09/2017 11/09/2016 LIPID 2018 GLUCOSE 06/29/2020 06/29/2017, 10/2016, 06/27/2017, Additional history exists DTAP/TDAP/TD IMMUNIZATION (3 - Tdap) 05/19/2023 05/19/2013, 07/18/2007 INFLUENZA VACCINE (#1) 2023 7, 08/08/2015, 08/09/2014, Additional history exists PHQ-2 (once per calendar year) 2023 HPV IMMUNIZATION Aged Out No longer e ligible based on patient's age to complete this topic IPV IMMUNIZATION Aged Out No longer e ligible based on patient's age to complete this topic MENINGITIS IMMUNIZATION Aged Out No l onger eligible based on patient's age to complete this topic Pneumococcal Vaccine: Pediatrics (0 to 5 Years) and At-Risk Patients (6 to 64 Years) Aged Out No longer eligible based on patient's age to complete this topic RSV MONOCLONAL ANTIBODY Aged Out No l onger eligible based on patient's age to complete this topic Advance Directives For more information, please contact: [phone] Latest Code Status on File Code Status Date Activated Date Inactivated Comments Full Code 06/28/2017 6:29 PM 06/30/2017 4:46 PM Code Status History Code Status Date Activated Date Inactivated Comments Full Code 06/24/2017 5:55 AM 06/26/2017 6:22 PM Care Teams Solar Designer Relationship Specialty Start Date End Date No Ref-Primary, Physician PCP - General 04/10/18
--- OUTSIDE RECORDS SUMMARY | 2023-12-17 07:00 | XMS_ITS | Clinical Summary ---
Author Name Unknown Organization [facility] Address [address] [place] [address] Care Team Providers Care Seafood Technology Specialist Name Role Phone Brit Butterfield PA-C Primary Care Provider [phone] Source Comments You are receiving this document as you are listed as the primary care provider,follow-up provider, or the patient has been referred to you for consultation.This is in compliance with the Medicare andMedicaid EHR Incentive Program,which states Providers who transition their patient to another setting of careor provider of care or refers their patient to another provider of care shouldprovide summary care record for each transition of care or referral. [facility] Allergies Active Allergy Reactions Criticality Noted Date Comments Adhesive Rash Low 02/14/2010 Bee Pollen Anaphylaxis 05/18/2009 Phenothiazines Other, see comments 01/18/2013 jittery Droperidol Other, see comments 01/18/2013 Jittery, skin crawling Metoclopramide Other, see comments 06/24/2017 Prochlorperazine Other, see comments 04/25/2013 Other reaction(s): Intolerance-Can't Take feels like i am climbing the nayak. feels like i am climbing the nayak. [place] Jelly Anaphylaxis 05/18/2009 Scopolamine 07/29/2017 Sumatriptan Headache 06/28/2015 Ondansetron Other, see comments 01/18/2013 jittery Medications Medication Sig Dispensed Refills Start Date End Date Status EPINEPHrine (EPIPEN) 0.3 MG/0.3ML injectionIndication s:Bee sting allergy Inject 0.3 mL intramuscularly as needed. May repeat. 2 Each 11/23/2019 Active Norgestimate-Eth Estradiol (ORTHO-CYCLEN) 0.25-35 MG-MCG tabletIndications:E ncounter for surveillance of contraceptive pills 1 tab po qd 84 Tablet 3 11/23/2019 Active traZODone (DESYREL) 50 MG tabletIndications:I nsomnia, unspecified type Take 1 Tablet by mouth daily at bedtime. 30 Tablet 3 02/05/2020 Active ipratropium-albuter ol (DUONEB) 0.5-2.5 (3) mg/3ml nebulizer solutionIndications :Mild intermittent asthma with acute exacerbation (HRC) Inhale 3 mL every 6 hours as needed for Wheezing. 90 mL 06/14/2020 Active ALBUterol sulfate HFA 108 (90 Base) MCG/ACT inhalerIndications: Mild intermittent asthma with acute exacerbation (HRC) Inhale 2 Puffs every 4 hours as needed for Wheezing. also take 15-30 min prior to exercise 8.5 g 2 06/14/2020 Active hydrOXYzine HCl (ATARAX) 25 MG tabletIndications:G AD (generalized anxiety disorder) (HRC),Insomnia, unspecified type 1/2 tab po q6 hrs prn anxiety, 1-2 tabs po qhs prn insomnia 30 Tablet 1 07/25/2020 Active sertraline (ZOLOFT) 50 MG tabletIndications:M ild episode of recurrent major depressive disorder (HRC),DZE (generalized anxiety disorder) (HRC) 1 tab po qd x 2 weeks then 2 tabs po qd 60 Tablet 3 08/24/2020 Active cyclobenzaprine (FLEXERIL) 10 MG tabletIndications:S pasm of muscle TAKE 1 TABLET BY MOUTH AT BEDTIME NEEDED FOR PAIN /SPASM 30 Tablet 1 10/31/2020 Active Active Problems Problem Noted Date Diagnosed Date Fatigue 07/24/2017 PCOS (polycystic ovarian syndrome) 11/09/2016 Mild intermittent asthma without complication Migraine without aura and wi thout status migrainosus, not intractable 11/09/2016 Obesity 11/09/2016 Immunizations Name Administration Dates Next Due DTaP 07/18/2007 Flu Vac (18-64 Yrs), Intradermal 08/08/2015,11/2011 Flu Vac (3+ yrs) 09/11/2010 Flu Vac Preserv Free (3+yrs) 09/11/2010 Fluzone Qiv Multidose Vial 0.25 (6-35 Mos) 07/24 HepA Adult (19+ yrs) 07/19/2017,11/09/2016 Influenza IIV4 (Quadrivalent) 0.5mL (96451) 01/2020,09/29/2018,07/21/2017 Influenza, Unspecified Formulation 08/09/2014, Tdap 05/19/2013,07/18/2007 Family History Medical History Relation Name Comments Depression Mother High Cholesterol Mother Hypertension Mother Obesity Mother Hypertension Brother No Known Problems Daughter Jose Alberto Cancer, Breast Maternal Aunt Cancer, Ovary Maternal Aunt Cancer Maternal Grandfather fr om throat cancer in his 50s, heavy smoker. Cancer Maternal Grandmother Breast cancer in her 70s. Cancer, Breast Maternal Grandmother Colon Polyps Maternal Grandmother Heart Disease Maternal Grandmother Myocardial Infarction Maternal Grandmother Had a few, first one in her 60s. Colon Polyps Paternal Uncle Seizure Disorder Sister No Known Problems Son 1 Rashid No Known Problems Son 2 Too Relation Name Status Comments Father Unknown Alive Mother Alive Brother Alive Daughter Jose Alberto Alive Maternal Aunt Maternal Grandfather Maternal Grandmother Paternal Grandfather Unknown Paternal Grandmother Unknown Paternal Uncle Sister Alive Son 1 Rashid Alive Son 2 Too Alive Social History Tobacco Use Types Packs/Day Years Used Date Smoking Tobacco: Never Smokeless Tobacco: Never Alcohol Use Standard Drinks/Week Comments Yes 1 (1 standard drink = 0.6 oz pur e alcohol) PHQ-2 Answer Date Recorded PHQ-2 Score 0 08/24/2020 Sex and Gender Information Value Date Recorded Sex Assigned at Female 04/17/2022 9:23 AM CDT Gender Identity Female 04/17/2022 9:23 AM CDT Sexual Orientation Straight 04/17/2022 9: 23 AM CDT Last Filed Vital Signs Vital Sign Reading Time Taken Comments Blood Pressure 120/94 07/25/2020 1:08 PM CDT Pulse 113 07/25/2020 1:08 PM CDT Temperature 36.9 ??C (98.4 ??F) 06/14/2020 3:56 PM CD T Respiratory Rate 19 06/14/2020 3:56 PM CDT Oxygen Saturation 97% 06/14/2020 3:56 PM CDT Inhaled Oxygen Concentration - - Weight 98.8 kg (217 lb 12.8 oz) 07/25/2020 1:08 PM CDT Height 157.5 cm (5' 2.01) 03/04/2020 8:54 AM CD T Body Mass Index 39.83 03/04/2020 8:54 AM CDT Plan of Treatment Health Maintenance Due Date Last Done Comments Colon Cancer Screening Plan Due 1978 Hep C Screening (Preventive Services) 1978 Pneumococcal (1 - PCV) 1984 HepB (1) 1997 Adult Preventive Visit 11/23/2020 11/23/2019, 2016 Asthma ACT 11/23/2020 11/23/2019, 10/29 (Completed), 03/05/2018, Additional history exists DTaP/Tdap/Td (4 - Tdap) 05/19/2023 05/19/20 13, 07/18/2007, 07/18/2007 COVID-19 Vaccine ( season) 2023 01/20/2021, 10/25/2020 Influenza (#1) 2023 10/31/2019, 12/2017, 07/21/2017, Additional history exists Cervical Cancer Screening 11/23/20242019, 11/09/2016, 12/30/2012 Cholesterol 11/24/2024 11/24/2019, 11/09/2016 Zoster/Shingles (1 of 2) 2028 HIV Screening (Preventive Services) Completed 11/09/2016 HepA Aged Out 07/19/2017, 11/09/2016 No lo nger eligible based on patient's age to complete this topic HPV Vaccine Aged Out No longer eligi ble based on patient's age to complete this topic Hib Aged Out No longer eligi ble based on patient's age to complete this topic IPV (Polio) Aged Out No longer eligi ble based on patient's age to complete this topic MCV4 Aged Out No longer eligi ble based on patient's age to complete this topic Procedures Procedure Name Priority Date/Time Associated Diagnosis Comments LIPID PANEL & DIRECT LDL (IF NEEDED) Routine 11/24/2019 9:20 AM COOLER WORKER Encounter for screening for lipoid disorders PAP TEST Routine 11/23/2019 4:20 PM COOLER WORKER Pap smear for cervical cancer screening HIV-1 P24 AND HIV-1/HIV-2 ANTIBODIES Routine 11/09/2016 8:23 AM COOLER WORKER Screening for STDs (sexually transmitted diseases) from Last 3 Months or Most Recently Relevant to Health Maintenance Results * (ABNORMAL) Lipid Panel and Direct LDL(If Needed) (11/24/2019 9:20 AM COOLER WORKER) Cholesterol 228(H) 0 - 199 mg/dL 11/24/2019 12:01 PM [facility] Triglyceride 143 <=149 mg/dL 11/24/2019 12:01 PM [facility] HDL Cholesterol 70 >=40 mg/dL 0 12:01 PM [facility] LDL, Calculated 129 <130 mg/dL 0 12:01 PM [facility] Non HDL Chol, Calculated 158 mg/dL 11/24/2019 12:01 PM [facility] Cholesterol/HDL Ratio 3.3 11/24/2019 12:01 PM [facility] Hours Fasting 12 11/24/2019 12:01 PM [facility] Blood Venipuncture / Unknown 11/24/2019 9:20 AM COOLER WORKER 11/24/2019 9:20 AM COOLER WORKER Brit Butterfield PA-C LAB_1 [facility] [address] [place] [address], [facility] [phone] [facility] [address] [place] [address], [facility] [phone] * PAP Test (11/23/2019 4:20 PM COOLER WORKER) Case Report Pap ? Case: [id number] ? Authorizing Provider: ??Brit Butterfield PA-C ?Collected: ? 11/23/2019 04:20 PM ? Ordering Location: ? [facility] ??Received: ?11/23/2019 06:06 PM ? First Screen: ?Brittany Zamudio ? Specimen: ?Pap Test, Routine, Cervix/Endocervix ? 11/27/2019 1:48 PM COOLER WORKER [facility] Pap Specimen Adequacy Satisfactory for evaluation, endocervical/bob sformation zone component present. 11/27/2019 1:48 PM COOLER WORKER [facility] Pap Interpretation Negative for intraepithelial lesion or malignancy (NILM). 11/27/2019 1:48 PM COOLER WORKER [facility] Gross Description The specimen is received in SurePath fixative and properly labeled. 1 Pap-stained SurePath slide is prepared. 11/27/2019 1:48 PM COOLER WORKER [facility] Pap Disclaimer The Pap test is a screening test designed to aid in the detection of cervical cancer and its precursor lesions. It is not a diagnostic procedure and should not be used as the sole means of detecting cervical cancer. Both false-positive and false-negative reports may occur. 11/27/2019 1:48 PM COOLER WORKER [facility] Embedded Images 0 1:48 PM COOLER WORKER [facility] Other Specimen Type ENTIRE ENDOCERVIX / Unknown 11/23/2019 4:20 PM COOLER WORKER 11/23/2019 6:06 PM COOLER WORKER Comment:LMP: No LMP recorded . (Menstrual status: Continuous hormonal contraception). Brit Butterfield PA-C LAB PATHOLOGY Performing Organization Address [facility] Co de Phone Number [facility] [address] [place] [id number] * HIV-1 p24 AND HIV-1/HIV-2 ANTIBODIES (11/09/2016 8:23 AM COOLER WORKER) HIV-1 p24 Ag and HIV-1/HIV-2 Ab Nonreactive Nonreactive PN SOFT 11/09/2016 8:23 AM COOLER WORKER 11/09/2016 12:28 PM COOLER WORKER Narrative PN SOFT - 11/09/2016 1:46 PM COOLER WORKER Performed at [address] [address] CLIA number [id number] Brit Butterfield PA-C LAB_1 Performing Organization Address [facility] de Phone Number PN SOFT [address] [place] [phone] from Last 3 Months or Most Recently Relevant to Health Maintenance Care Teams Seafood Technology Specialist Relationship Specialty Start Date End Date Brit Butterfield PA-C [address] [place] [address] PCP - General Physician Net Developer With [facility] 11/08/16
[2023-12-17] MEDS: LACTATED RINGERS 1000 ML 1,000 ML 100 ML IV ×2 (07:05→12:00)
[2023-12-17 08:00] LABS: Ur HCG Qualitative* Negative (Negative)
[2023-12-17] MEDS: ACETAMINOPHEN 500 MG TABLET 1000 MG PO (08:06)
[2023-12-17] MEDS: GABAPENTIN 600 MG TABLET PO (08:06)
[2023-12-17 08:12] LABS: Hemoglobin* 13.6 gm/dL (12.0-16.0)
[2023-12-17] MEDS: SODIUM CHLORIDE 0.9 % (FLUSH) 10 ML SYRINGE IVF ×2 (08:22→15:17)
--- NOTE | 2023-12-17 08:22 | W.PM.H&PU ---
History & Physical Update History & Physical Update H&P Reviewed and patient assessed: No changes noted
--- NOTE | 2023-12-17 08:23 | P.PCN_ITS ---
Procedure Note Time Seen by Provider: : Date Seen: 12/17/23 Date of procedure: 12/17/23 Will [facility] bill your pro fee for this procedure?: Yes Procedure Description: Preoperative diagnosis: 43-year-old 6 [id number] with chronic pelvic pain. Postoperative diagnosis: Same Procedure: Total laparoscopic hysterectomy, bilateral salpingectomy, diagnostic cystoscopy. Anesthesia: General endotracheal, local Surgeon: Giuliana Tanner MD Assist: Chana Mcgarry MD Estimated blood loss: 200 mL. IV Fluid: 1500 mL Urine output: 200 mL, clear urine at the end of the procedure. Drains: Fournier to gravity Specimen: Uterus and bilateral fallopian tubes to pathology. Findings: On exam under anesthesia: The uterus was anteverted, approximately 10 week size, mobile without nodularity or masses palpable. Adnexa without mass or fullness palpable. On laparoscopy: Both ovaries were adherent to the posterior uterine wall. Incidental uterine perforation with the uterine manipulator noted. Appendix and gallbladder are surgically absent. Liver edge appears normal Procedure: Aaliyah was taken to the operating room where general anesthetic was found to be adequate. She was placed in the dorsal lithotomy position and an exam under anesthesia was performed with findings stated above. She was then prepped and draped in a normal sterile manner. A Fournier catheter was placed. A bivalve speculum was placed in the vaginal canal. A long Allis clamp was placed on the anterior lip of the cervix, in the uterus sounded to 10 cm. A extra large VCare uterine manipulator was then placed. The Allis clamp and speculum were removed from the cervix. Attention was then turned to performing the laparoscopic portion of the procedure. All incisions were infiltrated with 0.50% Marcaine prior to incising the skin. A vertical, infraumbilical 1 cm incision was made. An 11 mm trocar was then placed under direct visualization. The abdomen was then insufflated with CO2 gas to a pressure of 15 mm of mercury. Two,, pelvic ports were then placed approximately 3-4 finger breaths medial to the ischial crests. The trocar in the RLQ = 5mm, LLQ = 11mm. These were placed under direct visualization. Attention was then turned to performing the hysterectomy. Both ureters were visualized in the normal position bilaterally. The left fallopian tube was grasped and removed with sequential pedicles using the dissecting, PowerSeal blunt tip dissecting forceps. The left side of the hysterectomy was performed using the PowerSeal dissecting forceps. The 1st pedicles were starting with the broad ligament that was cauterized and and bisected. In sequence following pedicles were formed to divide the utero-ovarian ligament. Then sequential pedicles were made through the broad ligament. The utero-ovarian ligament was divided and both ovaries dissected away from the posterior aspect of the uterus. The posterior leaf of the broad ligament was then divided and sequential pedicles carried down to the level of the VCare cup. The anterior leaf of the broad ligament was then divided down to the level of the anterior aspect of the VCare cup and a bladder flap created. The uterine vessels were then skeletonized. The uterine vessels were then cauterized and divided. Then excess tissue was cleared over the top of the VCare cup using the dissecting forceps. The right salpingectomy and right side of the hysterectomy were then performed in a similar manner. The Ligasure Valleylab pen with the spatula attachment was then used to perform the colpotomy incising around the VCare cup. The uterus was removed and the f undus placed in the vaginal canal to maintain insufflation. The vaginal cuff was then reapproximated using 2-0 V lock suture in a running manner. All the pedicles and vaginal cuff were then closely visualized and hemostasis obtained with bipolar cautery using the PowerSeal dissecting forceps or the SuperSonic Imaginelab pen with the spatula. The the uterus was removed from the vaginal canal and sent to pathology. The Fournier catheter was briefly removed. A diagnostic cystoscopy was performed using normal saline as the insufflation medium. The dome of the bladder was noted to be without injury and no evidence of any sutures from the vaginal cuff causing injury. Normal urine flow was noted through both ureteral orifices. Methylene blue IV was used to visualize the urine more easily. The Fournier catheter was then replaced. Attention was then returned to the abdomen where hemostasis was verified. Rhoda was applied to the vaginal cuff. The CO2 pressure decreased to 8mmHG and hemostasis verified. The fascia in the LLQ incision was approximated with 0- Vicryl suture using the Rashid Lama fascial closure device. This was closed under direct visualization with the laparoscope. The fascia in the umbilical incision was reapproximated using 0 Vicryl on a UR 6 needle. All trocars were removed under direct visualization. CO2 gas was allowed to escape the infraumbilical port prior to its removal. All skin incisions were re- approximated using 4-0 Monocryl in a running subcuticular manner, Exofin skin adhesive gel and adhesive bandages placed. The patient tolerated this procedure well. Sponge, lap and instrument counts were correct x2 at the end of the procedure and the patient was taken to the recovery area in stable condition. The patient received 3 gm IV Ancef prior to the start of the procedure. Anesthesia: GETA and local Reverse Unit Operator: Chana Mcgarry Estimated blood loss (mL): 200 IV fluids (mL): 1,500 Urine output (mL): 200 Pathology: specimen obtained, sent to pathology Condition: stable Disposition: floor
[2023-12-17] MEDS: CEFAZOLIN 1 GM inj 3 GM IVP (08:49)
[2023-12-17] MEDS: BUPIVACAINE 0.5% 30 ML INJECTION (09:05)
[2023-12-17] MEDS: METHYLENE BLUE 1 % 10 ml 100 MG INJECTION (10:09)
--- NOTE | 2023-12-17 10:54 | P.NB_ITS ---
Nerve Block Nerve Block Time Seen by Provider: 08:30 Date Seen: 12/17/23 Type of block requested by surgeon for post-operative analgesia: TAP Side: bilateral Time out performed: Yes Verification of patient name: Yes Verification of date of : Yes Site marking: site marked Name of person performing procedure: Rogelio Continuous monitoring Was continuous monitoring of O2 sat, B/P, cardiac nurse specialist, recorded every 15 minutes?: Yes Procedure Checklist: sterile prep, needles and gloves Ultrasound guided. Images saved: Yes Medications given in 5ml increments after negative aspiration: Marcaine %: 0.25 mL: 30 Needle gauge: 20 and Exparel mL: 10 Patient tolerated procedure well: Yes Additional comments: Needle noted between internal oblique and transversus abdominus. Local spread visualized Block Charges Block Charge (with Pro Fee): TAP Bilateral Use of Ultrasound Machine for Block: Yes- US Guidance/pain block
--- NOTE | 2023-12-17 10:54 | W.ANESCHARGE ---
Anesthesia Charges Start Date/Time Anesthesia Start Date: 12/17/23 Anesthesia Start Time: 08:24 Stop Date/Time Anesthesia Stop Date: 12/17/23 Anesthesia Stop Time: 11:32
--- NOTE | 2023-12-17 11:40 | W.ANESCHARGE ---
Anesthesia Charges Start Date/Time Anesthesia Start Date: 12/17/23 Anesthesia Start Time: 08:24 Stop Date/Time Anesthesia Stop Date: 12/17/23 Anesthesia Stop Time: 11:32
[2023-12-17] MEDS: KETOROLAC 30 MG/ML inj IVP ×3 (12:12→20:51)
--- NOTE | 2023-12-17 14:38 | P.GYNPRC_ITS ---
Procedure Note Date of procedure: 12/17/23 Pre-op diagnosis: Chronic pelvic pain Post-op diagnosis: same Procedure: Total laparoscopic hysterectomy, bilateral salpingectomies, diagnostic cystoscopy Anesthesia: GETA and local Complications: None. Surgeon: Giuliana Tanner MD Forester Silviculture: Chana Mcgarry Estimated blood loss (mL): 200 Urine Output (mL): 200 Pathology: specimen obtained, sent to pathology (Uterus, bilateral fallopian tubes) Condition: stable Disposition: PACU Findings: On exam under anesthesia: The uterus was anteverted, approximately 10 week size, mobile without nodularity or masses palpable. Adnexa without mass or fullness palpable. On laparoscopy: Both ovaries were adherent to the posterior uterine wall. Incidental uterine perforation with the uterine manipulator noted. Appendix and gallbladder are surgically absent. Liver edge appears normal Procedure Description: Please see the operative report by Dr. Tanner for full details of the procedure. I was asked to assist. I was scrubbed in for the entire procedure until closure of the abdominal incisions. I provided assistance with laparoscopic port placement, lysis of adhesions, visualization and retraction, and with the hysterectomy and bilateral salpingectomies from the right side, as well as with hemostasis and closure of the vaginal cuff.
[2023-12-17] MEDS: LACTATED RINGERS 1000 ML 1,000 ML 125 ML IV (15:55)
--- NOTE | 2023-12-17 18:29 | PC.NURSE ---
End of Shift: Patient was pleasant and cooperative. Patient arrived from PACU around 1230. Patient vital signs stable, lung sounds clear, bowel sounds active. Patient houser was removed d/t discomfort, MD huerta, catheter tip intact. Patient output after houser removal was around 750 mL. Patient up to chair for dinner, tolerating regular diet well. Patient ambulating from bed to chair and bathroom with supervision. Patient reports minor cramping, only scheduled pain meds given. Patient is now saline locked. Patient's family is in the room with her. Patient abdominal lap sites x3 C/D/I.
[2023-12-17] MEDS: ACETAMINOPHEN 325 MG TABLET 1000 MG PO (18:56)
[2023-12-18] MEDS: ACETAMINOPHEN 325 MG TABLET 1000 MG PO (00:28)
[2023-12-18] MEDS: ZOLPIDEM 5 MG TABLET PO (00:29)
[2023-12-18 03:00] VITALS: BP 114/69; PULSE 90; RESP 16; TEMP 36.6; O2SAT 98
[2023-12-18] MEDS: LORazepam 2 MG/ML inj IVP (03:04)
[2023-12-18 06:42] LABS: Hemoglobin* 11.8 gm/dL (12.0-16.0)
--- NOTE | 2023-12-18 06:50 | PC.NURSE ---
End of shift [id number]: Pt A&O, afebrile and VSS. C/o intermittent abdominal pain rating 1-3/10 only when coughing. Pt is independent and frequently ambulating the halls. Denies any nausea or lightheadedness. She had a difficult time falling asleep, requesting PRN Ambien @ 0030 and then PRN IV Ativan 1mg @ 0300. Pt received PRN Tylenol x1 dose @ 0030 for mild pain. Lap sites x3 are JEFF and clean & dry. PIV in left hand SL and C/D/I. Voiding clear, green urine since Fournier was discontinued post-op. Pt plans on discharging home today, 12/18, with her . ?
[2023-12-18 07:00] VITALS: BP 140/110; PULSE 85; RESP 16; TEMP 37.2; O2SAT 98
--- NOTE | 2023-12-18 07:48 | P.DS_ITS ---
DS: Providers Provider Date Seen: 12/18/23 Primary care physician: Gonzalez Marquis MD Attending Physician on discharge: Isabelle Jimenes MD Date of Discharge: 12/18/23 DS: Diagnosis Discharge Diagnosis (1) S/P hysterectomy: Status: Acute Problem details: Laparoscopic hysterectomy, bilateral salpingectomy. 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 Indication for surgery: AUB She had an uncomplicated surgery. Postoperative course has been uneventful. Vitals have been stable. She has remained afebrile. Today, on postoperative day 1, she reports the pain is well controlled. She has been able to ambulate Without difficulty. She is tolerating regular diet. She is passing flatus. Fournier catheter has been removed, and she is voiding without difficulty. Time Spent with Patient Time attestation: Total time spent providing and/or coordinating discharge services: Time spent: Less than 30 minutes SOLAR ENGINEER - Exam Physical Exam: Vital signs: Temp Pulse Resp BP Pulse Ox O2 Del Method O2 Flow Rate 98 F 90 16 114/69 98 Room Air 10 12/18/23 03:00 12/18/23 03:00 12/18/23 03:00 12/18/23 03:00 12/18/23 03:00 12/18/23 03:00 12/17/23 14:45 FiO2 40 12/17/23 12:20 Narrative: VITAL SIGNS: As noted above. GENERAL APPEARANCE: Alert, cooperative female in no acute distress. MOOD & AFFECT: Normal. ABDOMEN: Positive bowel sounds. Soft, non-distended and nontender. Incisions healing well, no surrounding erythema, induration or abnormal discharge. : Very mild spotting. EXTREMITIES: Nonedematous. Well perfused. Nontender. SOLAR ENGINEER - DS: Data Data Completed and Pending Labs on day of discharge: Labs from last 24 hours 12/18/23 12/17/23 12/17/23 06:34 Unknown 08:05 Hgb 11.8 L 13.6 Urine HCG, Qual Negative Blood Type O Positive Antibody Screen NEGATIVE Procedures Procedures: Procedures Operation Date: 12/17/23 08:15 Actual Procedure Side Surgeon p Total Laparoscopic Hysterectomy, Bilateral Salpingectomy, Diagnostic Cystoscopy Not Applicable Giuliana Tanner MD Complications: none Discharge Plan Discharge Disposition: Home w/ Parent or Adult Discharging Surgeon: Isabelle Jimenes Follow-Up Appointment: 2-3 weeks with Giuliana Tanner MD Prescriptions: New acetaminophen 325 mg Tablet 1,000 mg PO Q4H PRN (Reason: minor pain) Qty: 100 0RF docusate sodium 100 mg Capsule 100 mg PO BID PRN (Reason: Constipation) Qty: 100 0RF ibuprofen 600 mg Tablet 600 mg PO Q6H Qty: 30 0RF Continued eszopiclone [Lunesta] 2 mg tablet 2 mg PO QHS PRN epinephrine 0.3 mg/0.3 mL auto-injector 0.3 ml IM ONCE Qty: 2 5RF Rx Instructions: as a single dose; may repeat once cyanocobalamin (vitamin B-12) 1,000 mcg/mL solution 1,000 mcg IM .QMonth Qty: 10 2RF Rx Instructions: Include 25g 1 inch needles cholecalciferol (vitamin D3) 1,250 mcg (50,000 unit) capsule 1,250 mcg PO QWEEK 90 Days Qty: 13 3RF Discontinued peg 3350-electrolytes [Golytely] 236-22.74-6.74 -5.86 gram recon soln 240 ml PO Q10M Qty: 4000 0RF Rx Instructions: until fecal effluent is clear Activity Level: Activity as Tolerated and No Weight Bearing Discharge Diet: Regular Patient Instructions: Laparoscopic Hysterectomy (DC) Additional Instructions: ACTIVITY RESTRICTIONS: Nothing vaginally for 6 weeks: no tampons/intercourse No driving while taking narcotic pain medication during the day. 1-2 weeks. Lifting restriction: Maximum of 20 pounds for 2-3 weeks. High impact or core exercises: 3 weeks. Submerge the incisions in water (bath/pool/pimentel): 2 weeks. Off of work/school for a minimum of 2 weeks NO RESTRICTIONS for: Walking Going up/down stairs Showering Being a passenger in a car/motorized vehicle SYMPTOMS TO REPORT TO YOUR DOCTOR Bleeding that is red, like a moderate period Passing clots larger than the size of a golf ball Pain not relieved by prescribed medication Fever above 100.4 degrees Fahrenheit A foul vaginal odor Decrease in urination or painful, frequent urinating Chest pain Shortness of breath Tenderness or pain with redness and/swelling in the calf(s) of your leg Follow-up Appointments: 1. [facility]-3 weeks for an incision check. 2. A 6 week postop visit to verify that the vaginal cuff is well-healed. Follow-up: Giuliana Tanner MD [Staff Physician] - Gonzalez Marquis MD [Primary Care Provider] - Discharge Orders: Discharge Order (Routine); Ordered 12/18/23 Ordered By: Isablele Jimenes
[2023-12-18] MEDS: IBUPROFEN 600 MG TABLET PO (08:46)
--- NOTE | 2023-12-18 11:19 | PC.NURSE ---
Discharge: The patient discharged home with her this morning. Reported very mild pain at a scale of 1/10. Ice pack was used throughout the morning on abdomen. 3 lap sites CDI with steri strips... no drainage. The patient and her were educated on signs of infection to follow up on as well as increased bleeding. Ambulated off the unit. CAROLYN FOFANA BSN
== END 2023-12-18 10:35 | disposition home or self-care (01) ==
LOC: OR 06:58 → MEDSURG 07:00
PROVIDERS: PCP Family Medicine; Visit Provider Obstetrics & Gynecology
PROC: 0UT94ZZ Resection of Uterus, Percutaneous Endoscopic Approach (ICD-10-PCS; CPT 58571; principal; 2023-12-17 08:15)
DX: R10.2 Pelvic and perineal pain (principal); G89.29 Other chronic pain; D25.1 Intramural leiomyoma of uterus; D25.0 Submucous leiomyoma of uterus; N80.209 Endometriosis of unspecified fallopian tube, unspecified depth; N73.6 Female pelvic peritoneal adhesions (postinfective); G89.18 Other acute postprocedural pain
CPT/HCPCS: 58571; 00840; 36415; 64488; 76942; 81025; 85018; 86850; 86900; 86901; 88307; A9270; C9290; J0665; J0690; J1100; J1200; J1885; J2060; J2250; J2405; J2704; J3010; J3475; J3490; J7120

== ENCOUNTER 2024-08-24 10:09 | Outpatient (CLI) | payer OTHER, SELFPAY ==
--- OUTSIDE RECORDS SUMMARY | 2024-08-24 10:12 | XMS_ITS | Referral Summary ---
Author Organization [facility] Address [address] [place] [address] Care Team Providers Care Leather Craftsman Name Role Phone Unavailable Primary Care Provider Unavailabl e Source Comments Patient records contain information from all sites at [facility]. For routine questions regarding patient records, call [phone] during business hours, M-F 8:00 AM - 5:00 PM Central Time. Record requests for emergency care only can be directed to [phone] at any time.[facility] Allergies Active Allergy Reactions Criticality Noted Date Comments Adhesive Tape-Silicones Other (see comments) Propofol Other (see comments) 06/12/2010 Bee Pollen Anaphylaxis 08/19/2009 Droperidol Anxiety 12/03/2010 Metoclopramide Other (see comments) 06/24/2017 Ondansetron Other (see comments) 04/25/2013 feel like I am climbing the nayak. Phenothiazines Other (see comments) 01/18/2013 jittery Prochlorperazine Anxiety 12/03/2010 [place] Jelly Anaphylaxis 05/18/2009 Scopolamine Rash 07/29/2017 Sumatriptan Headache 06/28/2015 Medications albuterol (for_PROVENTIL HFA,VENTOLIN HFA) 90 mcg/actuation inhaler Inhale 2 puffs every 4 (four) hours as needed (SOB). Active HYDROcodone-ac etaminophen (NORCO) 5-325 mg per tabletIndicati ons:Acute Pain Take 2 tablets by mouth every 6 (six) hours as needed for pain Indication: Acute Pain. 10 tablet 04/14/20 19 Active norgestimate-e thinyl estradiol (SPRINTEC, 28,) 0.25- mg-35 mcg per tablet Take 1 tablet by mouth daily. Discard placebo week and start next pill pack 112 tablet 4 04/28/20 19 Active EPINEPHrine 0.3 mg/0.3 mL injection syringe Inject 0.3 mL (0.3 mg total) intramuscularly as needed for anaphylaxis. 2 each 1 05/12/20 23 Active Active Problems No known active problems Resolved Problems Problem Noted Date Diagnosed Date Resolved Date High Risk 04/07/2018 10/08/20 18 Elderly Multigravi da Greater Than 35 Year Old 04/07/2018 10/08/2018 Immunizations Name Administration Dates Next Due DTaP (Infanrix, Tripedia) 07/18/2007 Influenza, Unspecified 08/09/2014,08/04/2013 Tdap 05/19/2013 influenza trivalent vaccine (6 months and older) (PF) 09/11/2010 Social History Tobacco Use Types Packs/Day Years Used Date Smoking Tobacco: Never Smokeless Tobacco: Never Alcohol Use Standard Drinks/Week Comments No 0 (1 standard drink = 0.6 oz pur e alcohol) prior:occ Nutrition Answer Date Recorded Nutrition: EVOO Fat Source Unknown 12/28 Nutrition: Servings of Fruits/Vegetables per Day Not on file 12/28/2020 Dental Answer Date Recorded Dental: Regular Dentist Unknown 12/29/19 21 Comments No Sex and Gender Information Value Date Recorded Sex Assigned at Female 03/09/2019 2:31 PM CDT 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 pins/screws/ rods Depuy Synthes Description:Device Manufactu rer - Synthes. Device Status Text - [id number]. Pelvic Rec-Screw William 4.5x 90 - [place] [id number] Implanted:Qty: 1 on 09/08/2010 Hardware e.g. pins/screws/ rods Depuy Synthes Description:Device Manufactu rer - Synthes. Device Status Text - [id number]. Pin Kevin Smooth Single End 1 8 - [place] [id number] Implanted:Qty: 6 on 09/08/2010 Hardware e.g. pins/screws/ rods Patricia Description:Device Manufactu rer - Patricia Ray.. Device Status Text - [id number]. Pelvic Rec-Screw William 4.5x 80 - [place] [id number] Implanted:Qty: 2 on 09/08/2010 Hardware e.g. pins/screws/ rods Depuy Synthes Description:Device Manufactu rer - Synthes. Device Status Text - [id number]. Syn Screw Schanz 5.0x150 - [place]ando [id number] Implanted:Qty: 1 on 09/08/2010 Hardware e.g. pins/screws/ rods Depuy Synthes Description:Device Manufactu rer - Synthes. Device Status Text - [id number]. Procedures Procedure Name Priority Date/Time Associated Diagnosis Comments COMPREHENSIVE METABOLIC PANEL, S/P STAT 04/14/2019 2:29 PM CDT THINPREP W/HPV CO-TEST SCREEN Routine 04/07/2018 11:51 AM CDT Less Than 8 Weeks Gestation High Risk Elderly Multigravida Greater Than 35 Year Old HIV-1/-2 AG AND AB SCREEN Routine 04/07/2018 9:13 AM CDT Normal Not First from Last 3 Months or Most Recently Relevant to Health Maintenance Results * (ABNORMAL) Comprehensive Metabolic Panel (04/14/2019 2:29 PM CDT) Potassium, P 3.9 3.6 - 5.2 mmol/L 04/14/2019 2:53 PM CDT Sodium, P 136 135 - 145 mmol/L 04/14/2019 2:53 PM CDT Chloride, P 103 98 - 107 mmol/L 04/14/2019 2:53 PM CDT Bicarbonate, P 19(L) 22 - 29 mmol/L 04/14/2019 2:53 PM CDT Anion Gap, P 14 7 - 15 04/14/2019 2:53 PM CDT BUN (Blood Urea Nitrogen), P 10 6 - 21 mg/dL 04/14/2019 2:53 PM CDT Creatinine 0.60 0.59 - 1.04 mg/dL 04/14/2019 2:53 PM CDT eGFR-Black/ >90 >=60 mL/min/BS A 04/14/2019 2:53 PM CDT Comment: ----ADDITIONAL INFORMATION---- Estimated GFR calculated using the 2009 CKD_EPI creatinine equation. eGFR Non-Black/ >90 >=60 mL/min/BS A 04/14/2019 2:53 PM CDT Comment: ----ADDITIONAL INFORMATION---- Estimated GFR calculated using the 2009 CKD_EPI creatinine equation. Calcium, Total, P 9.0 8.6 - 10.0 mg/dL 04/14/2019 2:53 PM CDT Glucose, P 105 70 - 140 mg/dL 04/14/2019 2:53 PM CDT Protein, Total, P 7.3 6.3 - 7.9 g/dL 04/14/2019 2:53 PM CDT Albumin, P 4.4 3.5 - 5.0 g/dL 04/14/2019 2:53 PM CDT Aspartate Aminotransferase (AST), P 14 8 - 43 U/L 04/14/2019 2:53 PM CDT Alkaline Phosphatase, P 73 35 - 104 U/L 04/14/2019 2:53 PM CDT Alanine Aminotransferase (ALT), P <5(L) 7 - 45 U/L 04/14/2019 3:06 PM CDT Bilirubin, Total, P 0.4 <=1.2 mg/dL 04/14/2019 2:53 PM CDT Blood (Blood, Venous) 04/14/2019 2:29 PM CDT 04/14/2019 2:31 PM CDT us Nadeem Eller M.D. LAB BLOOD ADD-ON Final Resul t [facility] [address] [place] [address], [facility] * ThinPrep w/HPV Co-Test Screen (04/07/2018 11:51 AM CDT) 04/14/2018 11:41 AM CDT [facility] Report electronically signed by RUBEN ??STREICH I verify that I have examined all relevant slides/materials for the specimen(s) and rendered or confirmed the diagnosis. 04/14/2018 11:41 AM CDT [facility] Gross Description Received specimen in a ThinPrep vial. 04/14/2018 11:41 AM CDT [facility] Pap Test Source Cervical/Endocervi juan carlos 04/14/2018 11:41 AM CDT [facility] Clinical History 04/14/20 18 11:41 AM CDT [facility] Menstrual Status(LMP, PM, ) 04/14/2018 11:41 AM CDT [facility] Hormone Therapy/Contracep tives no 04/14/2018 11:41 AM CDT [facility] Interpretation Cervical/Endocervi juan carlos ??(ThinPrep): Satisfactory for Evaluation Negative for Intraepithelial Lesion or Malignancy High Risk HPV Testing results are NEGATIVE. HPV by Electrical Prospector-Medi ated Amplification ??(TMA) for E6/E7 viral messenger RNA (mRNA) is an in-vitro diagnostic test for the detection of 14 high-risk Human Papilloma (HPV) types (16, 18, 31, 33, 35, 39, 45, 51, 52, 56, 58, 59, 66, and 68) in cervical specimens. Additional testing performed at [facility], [facility], [address] [place] [address]. 04/14/2018 11:41 AM CDT [facility] Varies (Cervix/Endocerv ix) 04/07/2018 11:51 AM CDT 04/07/2018 2:04 PM CDT Cruz Estrada M.D. LAB PAP PATHDX ORDERABLES F inal Result Performing Organization Address City/[facility]/ZIP Co de Phone Number [facility] [address] [place] [address], [facility] * HIV-1/-2 Ag and Ab Screen (04/07/2018 9:13 AM CDT) HIV-1/-2 Ag and Ab Screen, S Non-Reacti ve Non-Reacti ve 04/07/2018 7:59 PM CDT [facility] HIV-1 Ab, S Non-Reacti ve Non-Reacti ve 04/07/2018 7:59 PM CDT [facility] HIV-1 Ag, S Non-Reacti ve Non-Reacti ve 04/07/2018 7:59 PM CDT [facility] HIV-2 Ab, S Non-Reacti ve Non-Reacti ve 04/07/2018 7:59 PM CDT [facility] Blood (Blood, Venous) 04/07/2018 9:13 AM CDT 04/07/2018 6:32 PM CDT Cruz Estrada M.D. LAB MICROBIOLOGY - BLOOD OR DERABLES Final Result Performing Organization Address City/[facility]/ZIP Co de Phone Number [facility] [address] [place] [id number], [facility] from Last 3 Months or Most Recently Relevant to Health Maintenance Insurance [employer] Advance Directives For more information, please contact: [phone] Documents on File Type Date Recorded Patient Substation Maintenance Technician Expl anation Advance Directives 09/08/2010 12:00 AM Elena dee document. See document viewer.
--- OUTSIDE RECORDS SUMMARY | 2024-08-24 10:12 | XMS_ITS | Clinical Summary ---
Author Organization [facility] Address [address] [place] [address] Care Team Providers Care Four H Club Agent Name Role Phone Unavailable Primary Care Provider Unavailabl e Source Comments Patient records contain information from all sites at [facility]. For routine questions regarding patient records, call [phone] during business hours, M-F 8:00 AM - 5:00 PM Central Time. Record requests for emergency care only can be directed to [phone] at any time.[facility] Allergies Active Allergy Reactions Criticality Noted Date Comments Adhesive Tape-Silicones Other (see comments) Propofol Other (see comments) 06/12/2010 Bee Pollen Anaphylaxis 08/19/2009 Droperidol Anxiety 12/03/2010 Metoclopramide Other (see comments) 06/24/2017 Ondansetron Other (see comments) 04/25/2013 feel like I am climbing the nayak. 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 Gender Identity Female 03/09/2019 2:31 PM CDT Sexual Orientation Straight 03/09/2019 2 :31 PM CDT Last Filed Vital Signs Vital [...] 19+ 3-dose series) 09/23/2020 08/26/2020 Mammogram 11/24/2020 11/24/2019, 11/24/2019 Fasting Glucose for Diabetes Screening 04/14/2022 04/14/2019, 04/27/2013, 01/14/2013, Additional history exists Cervical Cancer Screening 11/23/20222019, 04/07/2018, 04/07/2018, Additional history exists Depression Screening (Annual PHQ-2) 10/28/2023 COVID-19 Vaccine ( season) 2024 01/20/2021, 10/25/2020 Influenza Vaccine (#1) 2024 , 10/31/2019, 09/29/2018, Additional history exists DTaP,Tdap,and Td Vaccines (4 - Td or Tdap) 11/04/2033 11/04/2023, 05/19/2013, 07/18/2007, Additional history exists HIV Screening Completed 04/07/2018, 12/30/2012 HPV Vaccines Aged Out No longer eligi ble based on patient's age to complete this topic Pneumococcal vaccine (0-64 years) Aged Out No longer eligible based on patient's age to complete this topic Medical Devices Implanted Type Area Human Resources Admin Device Identifier Shelf Expiration Date Model / Serial / Lot Standard-Screw William 4.5 X 70 - [place] [id number] Implanted:Qty: 1 on 09/08/2010 Hardware e.g. pins/screws/ rods Depuy Synthes Description:Device Manufactu rer - Synthes. Device Status Text - [id number]. Pelvic Rec-Screw William 4.5x 90 - Armando [id number] Implanted:Qty: 1 on 09/08/2010 Hardware e.g. pins/screws/ rods Depuy Synthes Description:Device Manufactu rer - Synthes. Device Status Text - [id number]. Pin Kevin Smooth Single End 1 8 - Armando [id number] Implanted:Qty: 6 on 09/08/2010 Hardware e.g. pins/screws/ rods [place] Description:Device Manufactu rer - [place] Ray.. Device Status Text - [id number]. Pelvic [...] M.D. LAB BLOOD ADD-ON Final Resul t [facility] [address] [place] [address], [facility] * ThinPrep w/HPV Co-Test Screen (04/07/2018 11:51 AM CDT) 04/14/2018 11:41 AM CDT [facility] Report electronically signed by RUBEN ??JENA I verify that I have examined all relevant slides/materials for the specimen(s) and rendered or confirmed the diagnosis. 04/14/2018 11:41 AM CDT [facility] Gross Description Received specimen in a ThinPrep vial. 04/14/2018 11:41 AM CDT [facility] Pap Test Source Cervical/Endocervi juan carlos 04/14/2018 11:41 AM CDT [facility] Clinical History 04/14/20 18 11:41 AM CDT [facility] Menstrual Status(LMP, PM, ) 04/14/2018 11:41 AM CDT [facility] Hormone Therapy/Contracep tives no 04/14/2018 11:41 AM CDT [facility] Interpretation Cervical/Endocervi juan carlos ??(ThinPrep): Satisfactory for Evaluation Negative for Intraepithelial Lesion or Malignancy High Risk HPV Testing results are NEGATIVE. HPV by Armature Balancer-Medi ated Amplification ??(TMA) for E6/E7 viral messenger RNA (mRNA) is an in-vitro diagnostic test for the detection of 14 high-risk Human Papilloma (HPV) types (16, 18, 31, 33, 35, 39, 45, 51, 52, 56, 58, 59, 66, and 68) in cervical specimens. Additional testing performed at [facility], [facility] [place] [address]. 04/14/2018 11:41 AM CDT [facility] Varies (Cervix/Endocerv ix) 04/07/2018 11:51 AM CDT 04/07/2018 2:04 PM CDT Cruz Estrada M.D. LAB PAP PATHDX ORDERABLES F inal Result [facility] [address] [place] [address], [facility] * HIV-1/-2 Ag and Ab Screen (04/07/2018 9:13 AM CDT) HIV-1/-2 Ag and Ab Screen, S Non-Reacti ve Non-Reacti ve 04/07/2018 7:59 PM CDT [facility] HIV-1 Ab, S Non-Reacti ve Non-Reacti ve 04/07/2018 7:59 PM CDT [facility] HIV-1 Ag, S Non-Reacti ve Non-Reacti ve 04/07/2018 7:59 PM CDT [facility] HIV-2 Ab, S Non-Reacti ve Non-Reacti ve 04/07/2018 7:59 PM CDT [facility] Blood (Blood, Venous) 04/07/2018 9:13 AM CDT 04/07/2018 6:32 PM CDT Cruz Estrada M.D. LAB MICROBIOLOGY - BLOOD OR DERABLES Final Result Performing Organization Address City/[facility]/ZIP Co de Phone Number [facility] [address] [place] [address], [facility] from Last 3 Months or Most Recently Relevant to Health Maintenance Insurance [employer] Advance Directives For more information, please contact: [phone] Documents on File Type Date Recorded Patient Cloud Automation Tester Expl anation Advance Directives 09/08/2010 12:00 AM Elena dee document. See document viewer.
--- OUTSIDE RECORDS SUMMARY | 2024-08-24 10:12 | XMS_ITS | Continuity of Care Document ---
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) 06/22/2024 [facility] Drug allergy (disorder) 06/22/2024 [facility] Place of occurrence of accident or poisoning, shop, commercial (environment) 06/22/2024 [facility] Medications Medication Details Route Status Patient Instructions Ordering Provider Order Date Source cetirizine 10 mg oral tablet 1 Tab Tab, PO qDay, Maintenance, Qty: 30 Tab, Refills: 0, Print Requisition Active [facility] famotidine 20 mg oral tablet 1 Tab Tab, PO BID, Maintenance, Qty: 14 Tab, Refills: 0, Print Requisition Inactive [facility] Benadryl 25 mg oral tablet 1 Tab Tab, PO TID, PRN as needed for itching, Acute, 3 Day, Qty: 24 Tab, Refills: 0, Print Requisition Inactive [facility] EpiPen 2-Angel 0.3 mg injectable solution 0.3 mg, Kit, IM, As Directed, Acute, 1 Each, Refills: 0, 8/20/25 6:23:00 PM PDT, Print Requisition Active 024 [facility] Allergies, Adverse Reactions, Alerts Substance Category Reaction Severity Reaction type Status Date Reported Comments Source Zofran Assertion Unknown (qualifier value) Unknown Drug allergy Active [facility] Compazine Assertion Unknown (qualifier value) Unknown Drug allergy Active [facility] Bee Stings Assertion Unknown (qualifier value) Unknown Allergy to substance Active [facility] Diagnostic Reports Report Value Date Source EKG study Stationary ECG Study SRS Test Date: 2024-06-14 Pat Name: KG KEATING Department: Room: Gender: F Body Make Up Artist: Finesse Roldan : 1980 Requested By: Manuel Montenegro Order Number: [id number] Reading MD: Manuel Montenegro Measurements Intervals [place] Rate: 141 P: 57 NV: 147 QRS: 29 QRSD: 85 T: 17 QT: 351 QTc: 539 Severity: Abnormal ECG Interpretive Statements SINUS TACHYCARDIA, POSSIBLE ATRIAL FLUTTER POSSIBLE ANTERIOR MYOCARDIAL INFARCTION, OF INDETERMINATE AGE MODERATE T-WAVE ABNORMALITY, CONSIDER LATERAL ISCHEMIA INTERPRETATION BASED ON A DEFAULT AGE OF 40 YEARS Abnormal ECG No previous ECG available for comparison Electronically signed on 06-14-2024 14:48:33 PDT by Finesse Roldan on behalf of Manuel Montenegro. 06/14/2024 [facility] EKG Stationary ECG Study SRS Test Date: 2024-06-14 Pat Name: KG KEATING Department: Room: Gender: F Body Make Up Artist: Finesse Roldan : 1980 Requested By: Manuel Montenegro Order Number: [id number] Reading MD: Manuel Montenegro Measurements Intervals [place] Rate: 141 P: 57 NV: 147 QRS: 29 QRSD: 85 T: 17 QT: 351 QTc: 539 Severity: Abnormal ECG Interpretive Statements SINUS TACHYCARDIA, POSSIBLE ATRIAL FLUTTER POSSIBLE ANTERIOR MYOCARDIAL INFARCTION, OF INDETERMINATE AGE MODERATE T-WAVE ABNORMALITY, CONSIDER LATERAL ISCHEMIA INTERPRETATION BASED ON A DEFAULT AGE OF 40 YEARS Abnormal ECG No previous ECG available for comparison Electronically signed on 06-14-2024 14:48:33 PDT by Finesse Roldan on behalf of Manuel Montenegro. 06/14/2024 [facility] Consultation Notes Results Value Date Source Physician Emergency department Note Patient: KG KEATING Age: 43 years Sex: F : 1980 Active Insurance: [id number] Admitting MD: Manuel Montenegro MD Location: [facility] ER2: : PCP: [facility] PCP, OUT OF STATE Author: Tariq Chávez Date/Time Admit Date: 06/14/24 14:32 Provider Contact Time: 06/14/2024 14:36 Mode of Arrival Mode of Arrival: Ambulance Chief Complaint Chief Complaint ED:Allergic Reaction 06/14/24 14:37 Subjective Nursing Assessment:[facility] [employer] [facility] Per EMS patient states being stung by a bee at 1350 and having an allergic reaction. Upon arrival, patient was having difficulty breathing and a rash. 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 Pt denies any CP, NVD,fevers, chills, facial swelling, abd pain, backpain, and any other medical complaints. Pt was reportedly at a hotel pool todayin her usual state of health when a bee stung herL thumb. PT promptly started to feel itchy and short of breath.Pt injected herself with an epi-pen and called 911. Per EMS, pt was wheezing with audible stridorand a diffuse rash. She was given another 0.5 mg Epinephrine, 50 mgBenadryl, and albuterol on scene. Pt was tachycardic in the 160s. Ptstates that she does feel better. She hashad anaphylactic reactions to bee stings in the past, but she has never beenintubated. Denies any other significant PMH. Past Medical/Surgical History: Reviewed;no other pertinent history Family history: Reviewed;no other pertinent history Social history: Reviewed; Health Status Status Patient denies Review of Systems A 10-point review of systems, other than pertinent positives and negatives as stated per HPI, is otherwise negative. Physical Exam First Vitals Signs Blood Pressure: 147 / 90(06/14/24 14:37) Heart Rate: 150(06/14/24 14:37) Respiratory Rate: 20(06/14/24 14:37) SPO2: 95%(06/14/24 14:37) Oxygen Method: Room air(06/14/24 14:37) Temperature PO 36.7(06/14/24 14:37) VS: Per nurse's notes. Pulse ox reviewed and interpreted as normal. General: Awake and alert, oriented, GCS 15, NAD, non-toxic,answering questions. Head: Normocephalic, atraumatic. Skin: Warm, dry.No rashes, no lesions, no jaundice, no clubbing, no cyanosis. Eye: Pupils are equal, round and reactive to light, sclera anicteric, EOMI. ENMT: Oral mucosa moist, normal facial symmetry, no stridor. Neck: Supple, FROM, trachea midline, no thyromegaly, no JVD. Cardiovascular: Tachycardia. Regular rhythm., no murmurs rubs or gallops, cap refill less than 2 seconds. Respiratory: Lungs are clear to auscultation bilaterally, respirations are non-labored, good air movement, no wheezes rales or rhonchi. No stridor. No hot potato voice. Gastrointestinal: Soft, nontender, negative McBurney point tenderness, nondistended, no pulsatile masses, no guarding,no rebound. Genitourinary: Deferred. Back: Nontender,no CVAT Musculoskeletal: Normal ROM, no deformity, no swelling, notenderness. Neurological: Lucid, normal mental status, normal speech observed, normal facial symmetry, no focal deficits appreciated, Cognitive function: Oriented x 3. Psychiatric: Appropriate mood and affect, normal insight, normal concentration. Most Recent Vitals T:36.7 ?C (Oral) HR:117(Monitored) RR:18 BP:142/93 SpO2:98% Oxygen Method:Room air WT:100.5kg Emergency Department Orders Medications and IV's: famotidine (famotidine) 40 mg, IV Push, x1 methylPREDNISolone (SOLU-Medrol (methylPREDNISolone Na succ)) 125 mg, IV Push, x1 Sodium Chloride 0.9% (Saline 0.9% (Bolus)) 1,000 mL, 1000 mL/hr, IV, x1 Sodium Chloride 0.9% (Saline 0.9% (Bolus)) 1,000 mL, 1000 mL/hr, IV, x1 Diagnostic Tests: EKG (EKG) Diagnostic Results/Interpretation ECG 12 Lead Electrocardiogram interpreted by ED Physician: Obtained: 1439. Rate: 141. Rhythm: Sinus tach Bancroft: WNL STT segments: Nonspecific T changes. Ectopy: None P wave and NV interval:WNL, QT interval: WNL QRS interval:WNL OTher: baseline wandering Interpretation: As above. No STEMI Reexamination/Reevaluation Time: 1820 Vital Signs - This Encounter, Most Recent, Last 24 hours Temperature PO: 36.7 deg C Heart Rate: 117 bpm Monitored Cardiac Rhythm: Sinus tachycardia Resp Rate (Monitor): 18 Breaths/Min NIBP Systolic:142 mm HgHigh NIBP Diastolic:93 mm HgHigh NIBP Mean: 109 mm Hg Oxygen Method: Room air SPO2: 98 % Discussed diagnostic and lab results with pt. Pt voices understanding and declines all further testing. Patient requests to leave AMA. Discussed risks and benefits - up to and including and permanent injury - and patient understands. Pt is lucid, A&Ox4, and has the capacity to make this decision. All questions answered. Patient is advised to return to ER if new or worsening symptoms develop Medical Decision Making Independently reviewed EKG and/or radiographic images Hospitalization considered Patient presents with possible anaphylaxis already had partial treatment additional medications given while here. Patient is tachycardic heart rate has been downtrending gradually making atrial flutter less likely. Most likely sinus tachycardia. Indication for laboratory workup patient was normal state health prior to this and does have a history of allergic reactions. Patient was given breathing treatment on arrival but no wheezing here. Patient was observed for over 4 hours and has had improving symptoms though heart rate is still elevated. I recommended observation for at least 6 hours versus possible admission patient does not want to stay for any further observation. 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 She says she has an extra epinephrine pen at home and will given her prescriptions for some. Discussed need for close monitoring at home, return for any new or concerning symptoms and patient and partner are agreeable to plan for discharge, treatment and follow-up. This patient at this time is requesting to leave against medical advice. I spent a lengthy time at the patients bedside explaining to the patient what has been done so far and why I recommend that the patient stays in the hospital for recommended further evaluation and treatment and available alternatives. The patient has medical decision making capacity, understands the risks of leaving which include but are no limited to: , permanent disability, organ failure, missed diagnosis and worsened morbidity and potential mortality. I disclosed all information related to care thus far, which the patient comprehended, and answered all questions; and the patient still voluntarily wishes to terminate further evaluation/care and has decided to leave AMA. Even with discussing all alternatives to plan of care, evaluation and treatment, the patient requests to leave. Patient has signed a refusal of care form reflecting the above discussion and understands they can return at any time if they change their mind and they are given follow up as well on discharge paperwork. Final Diagnosis Diagnosis this visit: Sinus tachycardia Tachycardia (R00.0) Left against medical advice (Z53.29) Anaphylaxis (T78.2XXA) Disposition Time: 06/14/24 18:21 The patient would like to leave AMA The patient can carry on a conversation and in my opinion has the capacity to make decisions and appears to be of sound mind. The patient presents with an allergic reaction I have explained that I am concerned that this may represent serious or life-threatening pathology. The patient has verbalized an understanding of my concerns. I have discussed the need for further workup to get more information about potential causes of the patient s symptoms. I have told the patient that if they leave, they could get much worse, could become critically ill, and could possibly become disabled or . _ The patient is not willing to undergo further workup or stay for monitoring. They are refusing any further care/testing and leaving against medical advice. I am unable to convince the patient to stay, but I have asked them to return as soon as possible to complete their evaluation. I have answered all their questions. In an attempt to provide the best care possible in light of the patient leaving A, I will send them home with medications and information for follow-up. Condition guarded Tariq Kyler, 06/14/24 18:35, scribing for and in the presence of Manuel Montenegro MD. I personally performed the services described in the documentation, reviewed and edited the documentation which was dictated to the scribe in my presence, and it accurately records my words and actions. Manuel Montenegro MD Problem List/Past Medical History Chronic No qualifying data Historical No qualifying data Allergies Bee Stings(Unknown) Compazine(Unknown) Zofran(Unknown) Social History Alcohol Current, 06/14/2024 Home/Environment Sabianist restrictions/concerns: None. Lives with Spouse. Living situation: Home/Independent., 06/14/2024 Substance Abuse Current, Marijuana, 06/14/2024 Tobacco Never (less than 100 in lifetime), 06/14/2024 Home Medications No active home medications Electronically Signed By: Manuel Montenegro MD On 06/14/24 22:36 Co Signature By: Tariq Chávez On 06/14/24 18:35 Modified Signature By: Tariq Chávez On 06/14/24 15:33 06/15/2024 [facility] Discharge Instructions Document [facility] [address] [place] [id number] KG KEATING :1980 Visit Date:06/14/2024 SAFE PAIN MEDICINE PRESCRIBING We care about you. Our goal is to treat your medical conditions, including pain, effectively, safely and in the right way. Pain relief treatment can be complicated. Mistakes or abuse of pain medicine can cause serious health problems and . Our emergency department will only provide pain relief options that are safe and correct. For your SAFETY, we routinely follow these rules when helping you with your pain. We look for and treat emergencies. We use our best judgement when treating pain. These recommendations follow legal and ethical advice. You should have only ONE provider and ONE pharmacy helping you with pain. We do not usually prescribe pain medication if you already receive pain medicine from another health care provider. If pain prescriptions are needed for pain, we will only give you a limited amount. We do not refill stolen or lost prescriptions for pain medication. We do not prescribe long-acting pain medicines such as: OxyContin, MSContin, Fentanyl (Duragesic), Methadone, Opana ER, Exalgo, and others. We do not provide missed doses of Methadone. We do not usually give shots for flare-ups of chronic pain. Health care laws, including HIPAA, allow us to ask for all of your medical records. These laws allow us to share information with other health providers who are treating you. We may ask you to show a photo ID when you receive a prescription for pain medicines. In [place], we use the [place] Prescription Drug Monitoring Program called [facility]. In [facility], we use the Prescription Monitoring Program that has oversight by the [place] and [facility] boards of pharmacy. These statewide computer systems track opioid pain medications and other controlled substance prescriptions. If you need help with substance abuse or addiction, please call [phone] ([phone]) for confidential referral and treatment. Sponsored by: [employer]VANCING EMERGENCY CARE SHEET IRONWORKER [place] [facility] [employer] Safe Practice, Safe Care [facility] Emergency Department Patient Discharge Instructions If your symptoms continue or worsen, return to the emergency department or contact your physician. If you have questions about your discharge instructions, call the phone number above. Providers Admitting Physician - Manuel Montenegro MD Attending Physician - Manuel Montenegro MD Primary Care Physician - [facility] PCP, OUT OF STATE Referring Physician - Manuel Montenegro MD Provider Role Manuel Montenegro MD ED Provider Reason for Visit Allergic reaction - major Discharge Diagnosis Anaphylaxis Tachycardia Left against medical advice Discharge Vitals T: 36.7 ?C (Oral) HR: 119 (Monitored) RR: 16 BP: 135/94 SpO2: 96% Oxygen Method: Room air HT: 172.72 cm WT: 100.5 kg BMI: 33.688 BSA: 2.2 Time patient left the ED These instructions are intended to provide general information and guidelines to follow at home to properly care for your particular medical problem. The following diagnostic tests and/or procedures were performed during your stay. Follow-up Instructions: All referrals for follow up medical care may require approval by your insurance carrier. Any provider contact information (below) is provided to assist you in getting the follow up we recommend. However, it's important that you first check with your insurance provider to assure that the provider is in yourinsurance provider to assure that the provider is in your network and such a visit will be covered. Some plans may require a Primary Care doctor to provide a referral for specialist appointments. You May Need to Schedule the Following Appointments Follow Up with Edward Rivera MD ([facility]) When Within 1 to 3 days Why: Call for follow up appointment with the primary care physician provided above or with your preferred primary care physician Return to ED if symptoms worsen Take all medications as prescribed Where: [address] [place] [place] [address]- Business (1) Follow Up with Jaky Le DO When Within 1 to 3 days Why: Call for follow up appointment with the quality assurance lab technician provided above or with your preferred quality assurance lab technician Where: [address] [place] [address]- We encourage you to sign up for My Portal, where you can easily access your medical records and test results from all [facility]. Please sign up in one of the following ways: 1. Email invitation. You may have a message in your inbox. Please click the link provided to create an account. OR 2. Request an invitation at your next clinic or hospital visit. Please ask a staff member and they will be happy to assist you. Medications DO NOT STOP TAKING ANY MEDICATIONS WITHOUT CONTACTING YOUR PHYSICIAN What How Much When Instructions Next Dose New cetirizine (cetirizine 10 mg oral tablet) 1 tab(s) By mouth Once daily Printed Prescription New diphenhydrAMINE (Benadryl 25 mg oral tablet) 1 tab(s) By mouth Three times daily as needed for as needed for itching Duration: 3 Days Printed Prescription New EPINEPHrine (EpiPen 2-Angel 0.3 mg injectable solution) 0.3 Milligram By deep injection As Directed Printed Prescription New famotidine (famotidine 20 mg oral tablet) 1 tab(s) By mouth Twice daily Duration: 7 Days Printed Prescription Discharge Orders Discharge Orders: Discharge Now, Home or self care, AMA Education Materials Sinus Tachycardia Sinus tachycardia is a fast heartbeat. In sinus tachycardia, the heart beats more than 100 times a minute. Sinus tachycardia starts in the part of the heart called the sinoatrial (SA) node. Sinus tachycardia may be harmless, or it may be a sign of a serious condition. What are the causes This condition may be caused by: Exercise or exertion. A fever. Pain. Loss of body fluids (dehydration). Severe bleeding (hemorrhage). Anxiety and stress. Certain substances, including: Alcohol. Caffeine. Tobacco and nicotine products. Cold medicines. Illegal drugs. Medical conditions including: Heart disease. An infection. An overactive thyroid (hyperthyroidism). A lack of red blood cells (anemia). What are the signs or symptoms Symptoms of this condition include: A feeling that the heart is beating fast or unevenly (palpitations). Suddenly noticing your heartbeat (cardiac awareness). Lightheadedness. Tiredness (fatigue). Shortness of breath. Chest pain. Nausea. Fainting. How is this diagnosed This condition is diagnosed with: A physical exam. Tests or monitoring, such as: Blood tests. An electrocardiogram (ECG). This test measures the electrical activity of the heart. Ambulatory construction scheduler. This records your heartbeats for 24 hours or more. You may be referred to a sterilization specialist (quality assurance lab technician). How is this treated Treatment for this condition depends on the cause. Treatment may involve: Treating the underlying condition. Taking new medicines or changing your current medicines as told by your health care provider. Making changes to your diet or lifestyle. Follow these instructions at home: Lifestyle Do not use any products that contain nicotine or tobacco. These products include cigarettes, chewing tobacco, and vaping devices, such as e-cigarettes. If you need help quitting, ask your health care provider. Do not use illegal drugs, such as cocaine. Learn relaxation methods to help you when you get stressed or anxious. These include deep breathing. Avoid caffeine or other stimulants, including herbal stimulants that are found in energy drinks. Alcohol use Do not drink alcohol if: Your health care provider tells you not to drink. You are , may be , or are planning to become . If you drink alcohol: Limit how much you have to: 0 1 drink a day for women. 0 2 drinks a day for men. Know how much alcohol is in your drink. In the [place] one drink equals one 12 oz bottle of beer (355 mL), one 5 oz glass of wine (148 mL), or one 1 oz glass of hard liquor (44 mL). General instructions Drink enough fluids to keep your urine pale yellow. Take [id number] and prescription medicines only as told by your health care provider. Ask your health care provider about taking vitamins, herbs, and supplements. Contact a health care provider if: You have vomiting or diarrhea that does not go away. You have a fever. You have weakness or dizziness. You feel faint. Get help right away if: You have pain in your chest, upper arms, jaw, or neck. You have palpitations that do not go away. Summary In sinus tachycardia, the heart beats more than 100 times a minute. Sinus tachycardia may be harmless, or it may be a sign of a serious condition. Treatment for this condition depends on the cause or the underlying condition. Get help right away if you have pain in your chest, upper arms, jaw, or neck. This information is not intended to replace advice given to you by your health care provider. Make sure you discuss any questions you have with your health care provider. Document Revised: 02/12/2023 Document Reviewed: 02/12/2023 [employer] Patient Education ? 2022 [employer] Anaphylactic Reaction, Adult An anaphylactic reaction (anaphylaxis) is a sudden, very bad allergic reaction. This affects more than one part of your body. It can be life-threatening. If you have a very bad reaction, you need to get medical help right away. What are the causes This condition is caused by exposure to things that give you an allergic reaction (allergens). Common allergens include: Foods, such as peanuts, wheat, shellfish, milk, and eggs. Medicines. Insect bites or stings. Blood or parts of blood that are given for treatment (transfusions). Chemicals, such as latex and dyes that are used in food and in medical tests. What are the signs or symptoms Signs of a very bad allergic reaction may include: Feeling academic support coordinator the face (flushed). Your face may turn red. Itchy, red, or swollen areas of skin (hives). Swelling of: The eyes or face. The lips, tongue, or mouth. The throat. Trouble with any of these: Breathing. Talking. Swallowing. Feeling dizzy, light-headed, or like you might faint. Pain or cramps in your belly. Vomiting. Watery poop (diarrhea). How is this treated If you think you are having a very bad allergic reaction, you should do this right away: Give yourself a shot of medicine (epinephrine) using an auto-injector 'pen.' Your doctor will teach you how to use this pen. Call for emergency help. If you use a pen, you must still get treated in the hospital. There, you may be given: Medicines. Oxygen. Fluids in an IV tube. Follow these instructions at home: Safety Always keep an auto-injector pen with you. This could save your life. If you can, carry two auto-injector pens. Use the pen as told by your doctor. Do not drive after a reaction. Wait until your doctor says it is safe to drive. Make sure that you, the people who live with you, and your employer know: What you are allergic to, so you can stay away from it. How to use your auto-injector pen. Wear a bracelet or necklace that says you have an allergy, if your doctor tells you to do this. Learn the signs of a very bad allergic reaction. This way, you can treat it right away. Work with your doctors to make a plan for what to do if you have a very bad reaction. It is important to be ready. If you use your auto-injector pen: Get more medicine (epinephrine) for your pen right away. This is important in case you have another reaction. Get help right away. General instructions Tell all doctors who care for you that you have an allergy. If you have itchy, red, swollen areas of skin or a rash: Use an ovlf-uxd-vlibmiv medicine (antihistamine) as told by your doctor. Put cold, wet cloths on your skin. Take a cool bath or shower. Avoid hot water. Take hlfe-hkx-wytwqjv and prescription medicines only as told by your doctor. Keep all follow-up visits as told by your doctor. How is this prevented Avoid things that gave you a very bad allergic reaction before. Tell your plant reliability engineer about your allergy when you go out to eat. If you are not sure if your meal has food that you are allergic to, ask your plant reliability engineer before you eat it. Get help right away if: You have signs of an allergic reaction. You may notice them soon after being exposed to things that give you an allergic reaction. You had to use your auto-injector pen. You must go to the emergency room even if the medicine seems to be working. This is because another allergic reaction may happen within 3 days (rebound anaphylaxis). These symptoms may be an emergency. Do not wait to see if the symptoms will go away. Do this right away: Use your auto-injector pen as you have been told. Get help. Call your local emergency services (911 in the [place] Do not drive yourself to the hospital. Summary An anaphylactic reaction (anaphylaxis) is a sudden, serious allergic reaction. This condition can be life-threatening. If you have a reaction, get medical help right away. Your doctor will show you how to give yourself a shot (epinephrine injection) with an auto-injector 'pen.' Always keep an auto-injector pen with you. It could save your life. Use it as told by your doctor. If you had to use your auto-injector pen, you must still get treated in the hospital. This information is not intended to replace advice given to you by your health care provider. Make sure you discuss any questions you have with your health care provider. Document Revised: 11/30/2021 Document Reviewed: 11/30/2021 [employer] Patient Education ? 2022 [email or web address]. I understand that [facility] is not responsible for any personal belongings/effects or valuables that have not been identified on the valuables and belongings list. Any personal effects brought into the facility and not recorded on the valuables and belongings form are the responsibility of the patient/family/significant other. I have received the indicated patient education materials/instructions and medication list and have verbalized understanding. Patient Name: KG KEATING Patient/Responsible Adult Signature: Date/Time: Provider Signature: Date/Time: 06/15/2024 [facility] ED Physician Notes Patient: ANSHU KEATING Age: 43 years Sex: F : 1980 Active Insurance: [facility] [id number] Admitting MD: Manuel Montenegro MD Location: [facility] ER2: : PCP: [facility] PCP, OUT OF STATE Author: Tariq Chávez Date/Time Admit Date: 06/14/24 14:32 Provider Contact Time: 06/14/2024 14:36 Mode of Arrival Mode of Arrival: Ambulance Chief Complaint Chief Complaint ED: Allergic Reaction 06/14/24 14:37 Subjective Nursing Assessment: [facility] [employer] [facility] Per EMS patient states 'being stung by a bee at 1350 and having an allergic reaction'. Upon arrival, patient was having difficulty breathing and a rash. 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 Pt denies any CP, NVD, fevers, chills, facial swelling, abd pain, back pain, and any other medical complaints. Pt was reportedly at a hotel pool today in her usual state of health when a bee stung her L thumb. PT promptly started to feel itchy and short of breath. Pt injected herself with an epi-pen and called 911. Per EMS, pt was wheezing with audible stridor and a diffuse rash. She was given another 0.5 mg Epinephrine, 50 mg Benadryl, and albuterol on scene. Pt was tachycardic in the 160s. Pt states that she does feel better. She has had anaphylactic reactions to bee stings in the past, but she has never been intubated. Denies any other significant PMH. Past Medical/Surgical History: Reviewed; no other pertinent history Family history: Reviewed; no other pertinent history Social history: Reviewed; Health Status Status Patient denies Review of Systems A 10-point review of systems, other than pertinent positives and negatives as stated per HPI, is otherwise negative. Physical Exam First Vitals Signs Blood Pressure: 147 / 90 (06/14/24 14:37) Heart Rate: 150 (06/14/24 14:37) Respiratory Rate: 20 (06/14/24 14:37) SPO2: 95% (06/14/24 14:37) Oxygen Method: Room air (06/14/24 14:37) Temperature PO 36.7 (06/14/24 14:37) VS: Per nurse's notes. Pulse ox reviewed and interpreted as normal. General: Awake and alert, oriented, GCS 15, NAD, non-toxic, answering questions. Head: Normocephalic, atraumatic. Skin: Warm, dry. No rashes, no lesions, no jaundice, no clubbing, no cyanosis. Eye: Pupils are equal, round and reactive to light, sclera anicteric, EOMI. ENMT: Oral mucosa moist, normal facial symmetry, no stridor. Neck: Supple, FROM, trachea midline, no thyromegaly, no JVD. Cardiovascular: Tachycardia. Regular rhythm., no murmurs rubs or gallops, cap refill less than 2 seconds. Respiratory: Lungs are clear to auscultation bilaterally, respirations are non-labored, good air movement, no wheezes rales or rhonchi. No stridor. No hot potato voice. Gastrointestinal: Soft, nontender, negative McBurney point tenderness, nondistended, no pulsatile masses, no guarding, no rebound. Genitourinary: Deferred. Back: Nontender, no CVAT Musculoskeletal: Normal ROM, no deformity, no swelling, no tenderness. Neurological: Lucid, normal mental status, normal speech observed, normal facial symmetry, no focal deficits appreciated, Cognitive function: Oriented x 3. Psychiatric: Appropriate mood and affect, normal insight, normal concentration. Most Recent Vitals T: 36.7 ?C (Oral) HR: 117 (Monitored) RR: 18 BP: 142/93 SpO2: 98% Oxygen Method: Room air WT: 100.5 kg Emergency Department Orders Medications and IV's: famotidine (famotidine) 40 mg, IV Push, x1 methylPREDNISolone (SOLU-Medrol (methylPREDNISolone Na succ)) 125 mg, IV Push, x1 Sodium Chloride 0.9% (Saline 0.9% (Bolus)) 1,000 mL, 1000 mL/hr, IV, x1 Sodium Chloride 0.9% (Saline 0.9% (Bolus)) 1,000 mL, 1000 mL/hr, IV, x1 Diagnostic Tests: EKG (EKG) Diagnostic Results/Interpretation ECG 12 Lead Electrocardiogram interpreted by ED Physician: Obtained: 1439. Rate: 141. Rhythm: Sinus tach Bancroft: WNL STT segments: Nonspecific T changes. Ectopy: None P wave and NV interval: WNL , QT interval: WNL QRS interval: WNL OTher: baseline wandering Interpretation: As above. No STEMI Reexamination/Reevaluation Time: 1820 Vital Signs - This Encounter, Most Recent, Last 24 hours Temperature PO: 36.7 deg C Heart Rate: 117 bpm Monitored Cardiac Rhythm: Sinus tachycardia Resp Rate (Monitor): 18 Breaths/Min NIBP Systolic: 142 mm Hg High NIBP Diastolic: 93 mm Hg High NIBP Mean: 109 mm Hg Oxygen Method: Room air SPO2: 98 % Discussed diagnostic and lab results with pt. Pt voices understanding and declines all further testing. Patient requests to leave AMA. Discussed risks and benefits - up to and including and permanent injury - and patient understands. Pt is lucid, A&Ox4, and has the capacity to make this decision. All questions answered. Patient is advised to return to ER if new or worsening symptoms develop Medical Decision Making Independently reviewed EKG and/or radiographic images Hospitalization considered Patient presents with possible anaphylaxis already had partial treatment additional medications given while here. Patient is tachycardic heart rate has been downtrending gradually making atrial flutter less likely. Most likely sinus tachycardia. Indication for laboratory workup patient was normal state health prior to this and does have a history of allergic reactions. Patient was given breathing treatment on arrival but no wheezing here. Patient was observed for over 4 hours and has had improving symptoms though heart rate is still elevated. I recommended observation for at least 6 hours versus possible admission patient does not want to stay for any further observation. 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 She says she has an extra epinephrine pen at home and will given her prescriptions for some. Discussed need for close monitoring at home, return for any new or concerning symptoms and patient and partner are agreeable to plan for discharge, treatment and follow-up. This patient at this time is requesting to leave against medical advice. I spent a lengthy time at the patients bedside explaining to the patient what has been done so far and why I recommend that the patient stays in the hospital for recommended further evaluation and treatment and available alternatives. The patient has medical decision making capacity, understands the risks of leaving which include but are no limited to: , permanent disability, organ failure, missed diagnosis and worsened morbidity and potential mortality. I disclosed all information related to care thus far, which the patient comprehended, and answered all questions; and the patient still voluntarily wishes to terminate further evaluation/care and has decided to leave AMA. Even with discussing all alternatives to plan of care, evaluation and treatment, the patient requests to leave. Patient has signed a refusal of care form reflecting the above discussion and understands they can return at any time if they change their mind and they are given follow up as well on discharge paperwork. Final Diagnosis Diagnosis this visit: Sinus tachycardia Tachycardia (R00.0) Left against medical advice (Z53.29) Anaphylaxis (T78.2XXA) Disposition Time: 06/14/24 18:21 The patient would like to leave AMA The patient can carry on a conversation and in my opinion has the capacity to make decisions and appears to be of sound mind. The patient presents with an allergic reaction I have explained that I am concerned that this may represent serious or life-threatening pathology. The patient has verbalized an understanding of my concerns. I have discussed the need for further workup to get more information about potential causes of the patient's symptoms. I have told the patient that if they leave, they could get much worse, could become critically ill, and could possibly become disabled or . _ The patient is not willing to undergo further workup or stay for monitoring. They are refusing any further care/testing and leaving against medical advice. I am unable to convince the patient to stay, but I have asked them to return as soon as possible to complete their evaluation. I have answered all their questions. In an attempt to provide the best care possible in light of the patient leaving AMA, I will send them home with medications and information for follow-up. Condition guarded Tariq Chávez, 06/14/24 18:35 , scribing for and in the presence of Manuel Montenegro MD. I personally performed the services described in the documentation, reviewed and edited the documentation which was dictated to the scribe in my presence, and it accurately records my words and actions. Manuel Montenegro MD Problem List/Past Medical History Chronic No qualifying data Historical No qualifying data Allergies Bee Stings (Unknown) Compazine (Unknown) Zofran (Unknown) Social History Alcohol Current, 06/14/2024 Home/Environment Sabianist restrictions/concerns: None. Lives with Spouse. Living situation: Home/Independent., 06/14/2024 Substance Abuse Current, Marijuana, 06/14/2024 Tobacco Never (less than 100 in lifetime), 06/14/2024 Home Medications No active home medications Electronically Signed By: Manuel Montenegro MD On 06/14/24 22:36 Co Signature By: Tariq Chávez On 06/14/24 18:35 Modified Signature By: Tariq Chávez On 06/14/24 15:33 06/14/2024 [facility] Vital Signs Vital Sign Value Date Comments Source NIBP Mean 109 mm[Hg] 06/15/2024 [facility] Systolic 142 mm[Hg] 06/15/2024 [facility] Diastolic 93 mm[Hg] 06/15/2024 [facility] Heart Rate 117 bpm 06/15/2024 [facility] SPO2 98 % 06/15/2024 [facility] Respiratory Rate 18 Breaths/Min 06/15/2024 [facility] NIBP Mean 106 mm[Hg] 06/15/2024 [facility] Systolic 135 mm[Hg] 06/15/2024 [facility] Diastolic 94 mm[Hg] 06/15/2024 [facility] Heart Rate 119 bpm 06/15/2024 [facility] SPO2 96 % 06/15[facility] 16 Breaths/Min 06/15/2024 [facility] NIBP Mean 99 mm[Hg] 06/15/2024 [facility] Systolic 138 mm[Hg] 06/15/2024 [facility] Diastolic 81 mm[Hg] 06/15/2024 [facility] Heart Rate 120 bpm 06/15/2024 [facility] SPO2 97 % 06/15/20[facility] Respiratory Rate 17 Breaths/Min 06/15/2024 [facility] Height 172.72 cm 06/14[facility]20[facility] Drug Calc Weight (kg) 100.5 kg 06/14/2024 [facility] BMI 33.688 kg/m2 06/14/2024 [facility] Temperature PO 36.7 Yamila 06/14/2024 [facility] Encounters Location Location Details Encounter Type Encounter Number Reason For Visit Attending Provider ADM Date DC Date Status Source [facility] Emergency [id number] Manuel Smalls 06/14 [facility] Social History Social History Date Source Social History TypeResponse Smoking Status Never (less than 100 in lifetime) entered on: 06/14/24 Sex 06/14/2024 [facility] Assessment and Plan Result Assessment and Plan Date Source Assessment and Plan No data available fo r this section 06/15/2024 [facility] Family History Results Value Date Source Family History No data available for this section 05/28 [place]
--- OUTSIDE RECORDS SUMMARY | 2024-08-24 10:12 | XMS_ITS ---
Author Organization [facility] Address [address] [place] [address] Care Team Providers Care Production Administrative Assistant Name Role Phone Unavailable Unavailable Unavailable Surgery Details Not on file Complications Check Surgery Details section. Procedure Estimated Blood Loss Check Surgery Details section. Procedure Findings Check Surgery Details section. Procedure Specimens Taken Check Surgery Details section.
--- OUTSIDE RECORDS SUMMARY | 2024-08-24 10:13 | XMS_ITS | Clinical Summary ---
Author Organization [facility] Address [place], [place] [address] Care Team Providers Care E Business Project Manager Name Role Phone Brit Butterfield Primary Care Provider [phone] Allergies Active Allergy Reactions Criticality Noted Date Comments Adhesive Rash 02/14/2010 Bee Pollen Anaphylaxis 02/13/2010 Prochlorperazine Intolerance-Can't Take 013 feels like i am climbing the nayak. Droperidol Intolerance-Can't Take 04/25/2013 Feels like I am climbing the nayak. Sumatriptan Headache 06/28/2015 Metoclopramide Visual Disturbances 06/24/2017 Phenothiazines *Unknown 01/18/2013 jittery Propofol *Unknown 06/12/2010 [place] Jelly Anaphylaxis High 05/18/2009 Scopolamine Bleeding 04/25/2013 [...] mcg tab Take 2 tablets by mouth. Active methylergonovine (METHERGINE) 0.2 mg tabletIndications: Spontaneous Take 1 tablet by mouth every 8 hours. 6 tablet 04/14/2018 Active HYDROcodone-acetam inophen, 5-325 mg, (NORCO) per tabletIndications: Spontaneous Take 1-2 tablets by mouth every 6 hours if needed for Pain (For moderate to severe pain.) Max acetaminophen dose: 4000 mg in 24 hrs. 6 tablet 04/14/2018 Active ibuprofen (ADVIL; MOTRIN) 600 mg [...] pr egnancy, childbirth and puerperium, antepartum 07/27/2013 Encounters Date Type Department Care Team Description 07/23/2024 9:30 AM CDT Office Visit [facility] [address] [id number] Wenceslao De La Torre MD from Last 3 Months Immunizations Name Administration Dates Next Due Tdap, [...] Outcome GA Total Labor Labor/2nd/3rd Weight Sex Type Anes PTL Melissa A1 A5 Name Clin SAB SPONTA NEOUS 7 Term 37w 0d 2.75 kg (6 lb 1 oz) M Vag Epidur al N Livin g 8 Term 38w 0d 3.18 kg (7 lb) M Vag Epidur al Y Livin g Delivery Location:[facility] 2012 Term 37w 6d 3.09 kg (6 lb 13 oz) F [facility] g [facility] Delivery Location:[facility] Last Filed Vital Signs Vital Sign Reading [...] Health Maintenance Due Date Last Done Comments HIV for age 15-65 1993 BMI (ht and wt on same day) for age 18+ 1996 Hepatitis C screening for age 18-79 1996 Depression screening for age 12+ 09/26/2017 09/26/2016 Tetanus booster 05/19/2023 05/19/2013 Colonoscopy through age 75 2023 Lipids for age 45-75 2023 Mammogram for age 45-75 2023 COVID-19 vaccine series ( season) 2024 Influenza for age 9-49 06/28/2024 6 (Completed outside of [facility]) Pap test for age 21-65 10/10/2025 10/10/2022, 2021 Tdap Completed 05/19/2013 Pneumococcal series for age 6-64 Aged Out No longer eligible based on patient's age to complete this topic Procedures Procedure Name Priority Date/Time Associated Diagnosis Comments HPV HIGH RISK Routine 10/10/2022 12:00 PM EMBEDDED SOFTWARE MANAGER from Last 3 Months or Most Recently Relevant to Health Maintenance Results * HPV HIGH RISK (10/10/2022 12:00 PM EMBEDDED SOFTWARE MANAGER) TYPE 16 Negative Negative 10/15/2022 11:46 AM EMBEDDED SOFTWARE MANAGER [facility] TYPE 18 Negative Negative 10/15/2022 11:46 AM EMBEDDED SOFTWARE MANAGER [facility] OTHER HIGH RISK TYPES Negative Negative 10/15/2022 11:46 AM EMBEDDED SOFTWARE MANAGER [facility] Other (Cervical) 10/10/2022 12:00 PM EMBEDDED SOFTWARE MANAGER 10/11/2022 12:22 PM EMBEDDED SOFTWARE MANAGER Narrative [facility] - 10/15/2022 11:46 AM EMBEDDED SOFTWARE MANAGER HPV types 16, 18, 31, 33, 35, 39, 45, 51, 52, 56, 58, 59, 66 and 68 DNA were undetectable or below the pre-set threshold. Methodology: Mathew Dahlia 4800 HPV Test Giuliana Tanner MD MICROBIOL[facility] G[facility] [employer] [facility] [address] [place] [address], [place] from Last 3 Months or Most Recently Relevant to Health Maintenance Advance Directives * Full Code (Latest Code Status on File) Date Activated Date Inactivated Comments 04/14/2018 3:58 PM 04/14/2018 11:16 PM * Full Code Date Activated Date Inactivated Comments 07/28/2013 12:31 PM 07/29/2013 6:20 PM * Full Code Date Activated Date Inactivated Comments 07/28/2013 7:11 AM 07/28/2013 12:31 PM * Full Code Date Activated Date Inactivated Comments 07/27/2013 3:37 PM 07/28/2013 7:11 AM * Full Code Date Activated Date Inactivated Comments 07/27/2013 1:43 PM 07/27/2013 3:37 PM Care Teams E Business Project Manager Relationship Specialty Start Date End Date Brit Butterfield PA PCP - General Physician Yard Pilot 04/11/18
--- OUTSIDE RECORDS SUMMARY | 2024-08-24 10:13 | XMS_ITS | Clinical Summary ---
Author Organization [facility] Address [address] [place] [address] Care Team Providers Care Order Detailer Name Role Phone Brit Butterfield PA-C Primary Care Provider Source Comments You are receiving this document [...] for each transition of care or referral. [facility] Allergies Active Allergy Reactions Criticality Noted Date Comments Adhesive Rash Low 02/14/2010 Bee Pollen Anaphylaxis 05/18/2009 Phenothiazines Other, see comments 01/18/2013 jittery Droperidol Other, see comments 01/18/2013 Jittery, skin crawling Metoclopramide Other, see comments 06/24/2017 Prochlorperazine Other, see comments 04/25/2013 Other reaction(s): Intolerance-Can't Take feels like i am climbing the nayak. feels like i am climbing the nayak. 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 (HRC),DEZ (generalized anxiety disorder) (HRC) 1 tab po [...] (19+ yrs) 07/19/2017,11/09/2016 Influenza IIV4 (Quadrivalent) 0.5mL (12141) 01/2020,09/29/2018,07/21/2017 Influenza, Unspecified Formulation 08/09/2014, Tdap 05/19/2013,07/18/2007 [...] 11/23/2019, 10/29 (Completed), 03/05/2018, Additional history exists Mammogram 11/24/2020 11/24/2019 DTaP/Tdap/Td (4 - Tdap) 05/19/2023 05/19/20 13, 07/18/2007, 07/18/2007 COVID-19 Vaccine ( season) 2024 01/20/2021, 10/25/2020 Influenza (#1) 2024 10/31/2019, 12/12/2017, 07/21/2017, Additional history exists Cervical Cancer Screening [...] patient's age to complete this topic RSV Aged Out No longer eligi ble based on patient's age to complete this topic MCV4 Aged Out No longer eligi ble based on patient's age to complete this topic Procedures Procedure Name Priority Date/Time Associated Diagnosis Comments MM MAMMOGRAM SCREENING BILAT W 3D JUANCARLOS W CAD Routine 11/24/2019 1:51 PM NARCOTICS AND/OR VICE DETECTIVE Visit for screening mammogram LIPID PANEL & DIRECT LDL (IF NEEDED) Routine 11/24/2019 9:20 AM NARCOTICS AND/OR VICE DETECTIVE Encounter for screening for lipoid disorders PAP TEST Routine 11/23/2019 4:20 PM NARCOTICS AND/OR VICE DETECTIVE Pap smear for cervical cancer screening HIV-1 P24 AND HIV-1/HIV-2 ANTIBODIES Routine 11/09/2016 8:23 AM NARCOTICS AND/OR VICE DETECTIVE Screening for STDs (sexually transmitted diseases) from Last 3 Months or Most Recently Relevant to Health Maintenance Results * MM Mammogram Screening Bilat W 3D Juancarlos W CAD (11/24/2019 1:51 PM NARCOTICS AND/OR VICE DETECTIVE) Anatomical Region Laterality Modality Breast Bilateral Mammography Impressions 11/24/2019 2:11 PM NARCOTICS AND/OR VICE DETECTIVE : ACR BI-RADS Category 1: Negative RECOMMENDATION: Follow Up Imaging in 12 months - Bilateral The results and recommendations of this examination will be communicated to the patient. Narrative 11/24/2019 2:11 PM NARCOTICS AND/OR VICE DETECTIVE MM MAMMOGRAM SCREENING BILAT W 3D JUANCARLOS W CAD performed on 11/24/19 No comparisons were made when reading this study. Baseline. FINDINGS: Bilateral screening mammogram was performed with the assistance of Computer-Aided Detection and breast tomosynthesis. The breasts have scattered areas of fibroglandular density. There is no radiographic evidence of malignancy. ?? Brit Butterfield PA-C RAD GLEN * (ABNORMAL) Lipid Panel and Direct LDL(If Needed) (11/24/2019 9:20 AM NARCOTICS AND/OR VICE DETECTIVE) Cholesterol 228(H) 0 - 199 mg/dL 11/24/2019 12:01 PM [facility] Triglyceride 143 <=149 mg/dL 11/24/2019 12:01 PM [facility] HDL Cholesterol 70 >=40 mg/dL 0 12:01 PM [facility] LDL, Calculated 129 <130 mg/dL 0 12:01 PM [facility] Non HDL Chol, Calculated 158 mg/dL 11/24/2019 12:01 PM [facility] Cholesterol/HDL Ratio 3.3 11/24/2019 12:01 PM [facility] Hours Fasting 12 11/24/2019 12:01 PM [facility] Blood Venipuncture / Unknown 11/24/2019 9:20 AM NARCOTICS AND/OR VICE DETECTIVE 11/24/2019 9:20 AM NARCOTICS AND/OR VICE DETECTIVE Brit Butterfield PA-C LAB_1 [facility] [address] [place] [address], [facility] [phone] [facility] [address] [place] [address], [facility] [phone] * PAP Test (11/23/2019 4:20 PM NARCOTICS AND/OR VICE DETECTIVE) Case Report Pap ? Case: [id number] ? Authorizing Provider: ??Brit Butterfield PA-C ?Collected: ? 11/23/2019 04:20 PM ? Ordering Location: ? [facility] ??Received: ?11/23/2019 06:06 PM ? First Screen: ?Brittany Zamudio ? Specimen: ?Pap Test, Routine, Cervix/Endocervix ? 11/27/2019 1:48 PM NARCOTICS AND/OR VICE DETECTIVE [facility] Pap Specimen Adequacy Satisfactory for evaluation, endocervical/bob sformation zone component present. 11/27/2019 1:48 PM NARCOTICS AND/OR VICE DETECTIVE [facility] Pap Interpretation Negative for intraepithelial lesion or malignancy (NILM). 11/27/2019 1:48 PM NARCOTICS AND/OR VICE DETECTIVE [facility] Gross Description The specimen is received in SurePath fixative and properly labeled. 1 Pap-stained SurePath slide is prepared. 11/27/2019 1:48 PM NARCOTICS AND/OR VICE DETECTIVE [facility] Pap Disclaimer The Pap test is a screening test designed to aid in the detection of cervical cancer and its precursor lesions. It is not a diagnostic procedure and should not be used as the sole means of detecting cervical cancer. Both false-positive and false-negative reports may occur. 11/27/2019 1:48 PM NARCOTICS AND/OR VICE DETECTIVE [facility] Embedded Images 0 1:48 PM NARCOTICS AND/OR VICE DETECTIVE [facility] Other Specimen Type ENTIRE ENDOCERVIX / Unknown 11/23/2019 4:20 PM NARCOTICS AND/OR VICE DETECTIVE 11/23/2019 6:06 PM NARCOTICS AND/OR VICE DETECTIVE Comment:LMP: No LMP recorded . (Menstrual status: Continuous hormonal contraception). Brit Butterfield PA-C LAB PATHOLOGY [facility] [address] [place] [id number] * HIV-1 p24 AND HIV-1/HIV-2 ANTIBODIES (11/09/2016 8:23 AM NARCOTICS AND/OR VICE DETECTIVE) HIV-1 p24 Ag and HIV-1/HIV-2 Ab Nonreactive Nonreactive PN SOFT 11/09/2016 8:23 AM NARCOTICS AND/OR VICE DETECTIVE 11/09/2016 12:28 PM NARCOTICS AND/OR VICE DETECTIVE Narrative PN SOFT - 11/09/2016 1:46 PM NARCOTICS AND/OR VICE DETECTIVE Performed at [address] [place] [address] CLIA number [id number] Brit Butterfield PA-C LAB[facility] [address] [place] [address] from Last 3 Months or Most Recently Relevant to Health Maintenance Care Teams Order Detailer Relationship Specialty Start Date End Date Brit Butterfield PA-C [address] [place] [address] PCP - General Physician Geek Squad Manager 11/08/16
--- OUTSIDE RECORDS SUMMARY | 2024-08-24 10:13 | XMS_ITS | Clinical Summary ---
Author Organization [facility] Address [address] [place] [address] Care Team Providers Care Ping Pong Table Assembler Name Role Phone No Ref-Primary, Physician Primary Care Provider Allergies Active Allergy Reactions Criticality Noted Date Comments Bee Pollen Anaphylaxis High 02/13/2010 Bees Anaphylaxis High 06/24/2017 Prochlorperazine Visual Disturbance 04/25/2013 Other reaction(s): Intolerance-Can't Take feels like i am climbing the nayak. Droperidol 01/18/2013 Other reaction(s): Other, see comments Mehdittery, skin crawling Other reaction(s): Intolerance-Can't Take ??Feels like I am climbing the nayak. Liquid Adhesive Rash Low 02/14/2010 Phenothiazines 01/18/2013 Other reaction(s): Other, see comments rosana Metoclopramide Visual Disturbance 06/24/2017 [place] Jelly Anaphylaxis High 05/18/2009 Scopolamine 04/25/2013 Other reaction(s): Bleeding (Patch) At site Sumatriptan 06/28/2015 Other reaction(s): Headache Ondansetron Visual Disturbance 01/18/2013 Other reaction(s): Intolerance-Can't Take feel like I am climbing the nayak. Other reaction(s): Other, see comments jittchinmay Medications EPINEPHrine (EPIPEN/ADRENAC LICK/OR ANY BX GENERIC EQUIV) 0.3 MG/0.3ML injection 2-pack Inject 0.3 mg into the muscle as needed for anaphylaxis Active albuterol (PROAIR HFA/PROVENTIL HFA/VENTOLIN HFA) 108 (90 BASE) MCG/ACT Inhaler Inhale 2 puffs into the lungs every 6 hours Active Active Problems Problem Noted Date Diagnosed Date RUQ pain 06/28/2017 Abdominal pain 06/28/2017 Acute cholecystitis 06/24/2017 Social History Tobacco Use Types Packs/Day Years Used Date Smoking Tobacco: Never Smokeless Tobacco: Never Alcohol Use Standard Drinks/Week Comments Yes 0 (1 standard drink = 0.6 oz pur e alcohol) Adolescent Education Answer Date Record ed Getting School Help Needed Not on file 07/19 Comments Unknown Sex and Gender Information Value Date Recorded Sex Assigned at Female 09/15/2020 7:56 PM ACCREDITED PHARMACY TECHNICIAN Legal Sex Female 5:14 AM ACCREDITED PHARMACY TECHNICIAN Gender Identity Female 09/15/2020 7:56 PM ACCREDITED PHARMACY TECHNICIAN Sexual Orientation Straight 09/15/2020 7: 56 PM ACCREDITED PHARMACY TECHNICIAN Last Filed Vital Signs Vital Sign Reading [...] CDT Plan of Treatment Not on file Insurance BC[place] OUT OF STATE MEDICAID [place] OUT [place] STATE [place] Advance Directives For more information, please contact: [phone] * Full Code (Latest Code Status on File) Date Activated Date Inactivated Comments 06/28/2017 6:29 PM 06/30/2017 4:46 PM * Full Code Date Activated Date Inactivated Comments 06/24/2017 5:55 AM 06/26/2017 6:22 PM Care Teams Ping Pong Table Assembler Relationship Specialty Start Date End Date No Ref-Primary, Physician PCP - General 04/10/18
--- OUTSIDE RECORDS SUMMARY | 2024-08-24 10:13 | XMS_ITS | Referral Summary ---
Author Organization [facility] Address [address] [place] [address] Care Team Providers Care Pediatric Physical Therapist Name Role Phone No Ref-Primary, Physician Primary [...] see comments rosana Metoclopramide Visual Disturbance 06/24/2017 [place] Jelly Anaphylaxis High 05/18/2009 Scopolamine 04/25/2013 Other reaction(s): Bleeding (Patch) At site Sumatriptan 06/28/2015 Other reaction(s): Headache Ondansetron Visual Disturbance 01/18/2013 Other reaction(s): Intolerance-Can't Take feel like I am climbing the nayak. Other reaction(s): Other, see comments mehdittchinmay Medications EPINEPHrine (EPIPEN/ADRENAC LICK/OR ANY BX GENERIC [...] Sex Assigned at Female 09/15/2020 7:56 PM CORPORATE ACCOUNTANT Legal Sex Female 5:14 AM CORPORATE ACCOUNTANT Gender Identity Female 09/15/2020 7:56 PM CORPORATE ACCOUNTANT Sexual Orientation Straight 09/15/2020 7: 56 PM CORPORATE ACCOUNTANT Last Filed Vital Signs Vital Sign Reading [...] MEDICAID [place] OUT OF [place]ICAID [place] Advance Directives For more information, please contact: [phone] * Full Code (Latest Code Status on File) Date Activated Date Inactivated Comments 06/28/2017 6:29 PM 06/30/2017 4:46 PM * Full Code Date Activated Date Inactivated Comments 06/24/2017 5:55 AM 06/26/2017 6:22 PM Care Teams Pediatric Physical Therapist Relationship Specialty Start Date End Date No Ref-Primary, Physician PCP - General 04/10/18
--- NOTE | 2024-08-24 10:15 | CRLHL7_ITS ---
For Patients: As a result of the Century Cures Act, medical imaging exams and procedure reports are released immediately into your electronic medical record. You may view this report before your referring provider. If you have questions, please contact your health care provider. BILATERAL SCREENING MAMMOGRAM WITH COMPUTER-AIDED DETECTION AND TOMOSYNTHESIS TECHNIQUE: CC and MLO views were obtained. These mammographic images have been obtained using full-field digital technique. These mammographic images were interpreted with the benefit of computer-aided detection. Breast Tomosynthesis was used in this interpretation. COMPARISON FILM: 08/22/23, 08/21/22, 03/14/21. FINDINGS: There are scattered areas of fibroglandular density. IMPRESSION: There is no radiographic evidence for malignancy. ASSESSMENT: BI-RADS Category 1: Negative RECOMMENDATION: Routine screening mammogram in 1 year. A lay language report of this examination will be provided to the patient. Gonzalez Romo M.D. Diagnostic Radiologist [email or web address] SP/Dictated by: Gonzalez Romo MD @ 08/24/2024 11:04:00 AM (Electronically Signed)
== END 2024-08-24 10:10 | disposition home or self-care (01) ==
LOC: MAMMO 10:10
PROVIDERS: PCP Family Medicine; Visit Provider Obstetrics & Gynecology
DX: Z12.31 Encounter for screening mammogram for malignant neoplasm of breast (principal)
CPT/HCPCS: 77063; 77067

== ENCOUNTER 2024-10-26 14:53 | Outpatient (CLI) | payer OTHER, SELFPAY ==
--- NOTE | 2024-10-26 15:00 | CRLHL7_ITS ---
For Patients: As a result of the Century Cures Act, medical imaging exams and procedure reports are released immediately into your electronic medical record. You may view this report before your referring provider. If you have questions, please contact your health care provider. CLINICAL HISTORY: pelvic pain, hysterectomy 12/21 TECHNIQUE: 2D bassett scale ultrasound. In addition color Doppler and spectral Doppler analysis was performed of the pelvis using a transabdominal and transvaginal approach. FINDINGS: The uterus is absent. The right ovary measures 2.3 x 1.4 x 1.3 cm in size and the left ovary is absent. The right ovary demonstrates normal arterial and venous blood flow on color Doppler and spectral Doppler analysis. There are no suspicious fluid collections within the cul-de-sac. IMPRESSION: Normal right ovary. Nonvisualization of the left ovary. No pelvic free fluid or mass. Dictated by Gonzalez Romo MD @ 10/27/2024 11:14:37 AM (Electronically Signed)
== END 2024-10-26 14:54 | disposition home or self-care (01) ==
LOC: US 14:53
PROVIDERS: PCP Family Medicine; Visit Provider Obstetrics & Gynecology
DX: R10.2 Pelvic and perineal pain (principal)
CPT/HCPCS: 76830; 76856; 93976

== ENCOUNTER 2024-11-19 07:34 | Outpatient (CLI) | payer OTHER, SELFPAY ==
--- NOTE | 2024-11-19 08:00 | CRLHL7_ITS ---
For Patients: As a result of the Century Cures Act, medical imaging exams and procedure reports are released immediately into your electronic medical record. You may view this report before your referring provider. If you have questions, please contact your health care provider. INDICATION: Abdominal and pelvic pain TECHNIQUE: Volumetric helical scanning of the abdomen and pelvis was performed with 110 cc of Isovue 370 contrast material IV. Coronal and sagittal reconstructions were obtained. COMPARISON: Abdomen/pelvis CT of 03/26/2023 FINDINGS: There is no evidence of bowel obstruction or inflammation. Colonic diverticulosis is noted. There is a moderate amount of stool throughout the colon. Fatty change is demonstrated in the liver. The liver is normal in size and shape. Postop changes of cholecystectomy are again demonstrated. The bile ducts are within normal limits. The spleen, adrenal glands and pancreas are negative. The kidneys are unremarkable. No lymphadenopathy is evident. No free fluid is demonstrated. A hysterectomy has been performed in the interval. A normally the left ovary is demonstrated. A right ovary is not identified with certainty. Left iliac bone postop changes are again demonstrated. The lung bases are essentially clear, and heart size is normal. IMPRESSION: 1. Possible constipation. 2. Colonic diverticulosis but no evidence of diverticulitis. 3. Fatty liver. 4. Post cholecystectomy and interval hysterectomy. Please note that all CT scans at this facility use dose modulation, iterative reconstruction, and/or weight-based dosing when appropriate to reduce radiation dose to as low as reasonably achievable. Dictated by Enzo Delgado MD @ 11/19/2024 12:51:34 PM (Electronically Signed)
== END 2024-11-19 07:35 | disposition home or self-care (01) ==
LOC: CT 07:34
PROVIDERS: PCP Family Medicine; Visit Provider Obstetrics & Gynecology
DX: R10.9 Unspecified abdominal pain (principal); K57.30 Diverticulosis of large intestine without perforation or abscess without bleeding; K76.0 Fatty (change of) liver, not elsewhere classified; R10.2 Pelvic and perineal pain
CPT/HCPCS: 74177; Q9967

== ENCOUNTER 2025-04-05 05:38 | Emergency (ER) | payer OTHER, SELFPAY ==
--- OUTSIDE RECORDS SUMMARY | 2025-01-29 23:30 | XMS_ITS | Continuity of Care Document ---
Author Organization [facility] Address [address] [address] [place] [address] Phone Care Team Providers Care Wool Grower Name Role Phone No Information Unavailable Unavailable Allergies, Adverse Reactions, Alerts Substance Reaction Status Criticality scopolamine Active No Information risperidone Active No Information prochlorperazine Active No Informat ion ondansetron Active No Information droperidol Active No Information bee pollen Active No Information adhesive tape Rash Active No Information morphine Nausea/Vomiting Active No Informati on Medications Medication Instructions Dosage Effective Dates (start - stop) Status Comments albuterol sulfate HFA 90 mcg/actuation aerosol inhaler inhale 2 puff by inhalation route every 4 - 6 hours as needed as needed 180 MCG - Active B-12 (unknown strength) Not Available - Active EpiPen 0.3 mg/0.3 mL injection, auto-injector inject (0.3MG) by intramuscular route as needed 0.3 MG - Active Procedures Procedure Date Offic/outpt E&m [facility]-wi 2 25 Colonoscopy Flex; W/bx 1/mx Level Iv-surg Path Gross/micro 25 Offic/outpt E&m New Mod-wi Routine Serum Collection Colonoscopy Flex; W/bx 1/mx Ugi Endo; W/bx 1/mx Level Iv-surg Path Gross/micro New Level 3 Init Inpt Cons New/est Mod-hi 7 Advance Directives Directive Yes / No Effective Date File Name No Information Encounters Encounter Description Practice Location Reason(s) For Visit Diagnoses Date Provider Providers Copied on Encounter [facility], [address] [address], [place], [id number], [place] tel:[phone] No Information No Information Offic/outpt E&m [facility] Mod-wi 2 [facility], [address] [address], [place], [id number], [place] tel:[phone] [facility] GI Symptoms or Concerns (chief complaint) Left upper quadrant abdominal painAltered bowel habitsAbdomin al bloatingNause a 5 Saqib Cunningham. [address] [place] [address], [id number], [place]. tel:[phone] Giuliana Silva MD. tel:[phone] ng Provider: Referral Self, USE FOR SELF REFERRALS. [facility], [address] [address], [place], [id number], [place] tel:[phone] [facility] Change in bowel habitUnspecif ied abdominal painChange in bowel habit 5 Ramos Azar. [address], [id number], [place]. tel:[phone] Giuliana Silva MD. tel:[phone] Vigo Provider: Referral Self, USE FOR SELF REFERRALS. [facility], [address] [address], [place], [id number], [place] tel:[phone] [facility] No Information 5 Gadiel White. [address] [place] [address], [address], [id number], [place]. tel:[phone] Offic/outpt E&m [facility], [address] [address], [place], [id number], [place] tel:[phone] [facility] GI Symptoms or Concerns (chief complaint) Left sided abdominal painLoose stools 5 Saqib ALEJANDRA Marisa. [address] [facility], [facility] [address], [place], [place], [id number], [place]. tel:[phone] Giuliana Silva MD. tel:[phone] juarez Provider: Giuliana Ghosh, [address], [place], [address]. tel:[phone] [facility], [address] [address], [place], [id number], [place] tel:[phone] [facility] GI Symptoms or Concerns (chief complaint) Diarrhea, unspecified typeNauseaDia rrhea, unspecified typeUnspecifi ed abdominal pain 1 Harry Thorpe. [address] [place] [address], [facility] [address], [place], [id number], [place]. tel:[phone] Giuliana Silva MD. tel:[phone] juarez Provider: Referral Self, USE FOR SELF REFERRALS. New Level 3 [facility], [address] [address], [place], [id number], [place] tel:[phone] [facility] GI Symptoms or Concerns (chief complaint) Left lower quadrant abdominal painDiarrhea, unspecified typeDark stoolsNausea 1 No Information Referring Provider: Referral Self, USE FOR SELF REFERRALS. [facility], [address] [address], [place], [id number], [place] tel:[phone] [facility] No Information 1 Ana Jorgensen. [address] [facility], [address], [id number], [place]. tel:[phone] Init Inpt Cons New/est Mod-hi [facility], [address] [address], [place], [id number], [place] tel:[phone] [facility] No Information Jun-201 7 No Information Referring Provider: Jay Palm MD R, [address] [place], [address]. tel:[phone] Family History Family Member Type Diagnosis Age At Onset Mother Problem (finding) GERD Mother Problem (finding) diverticulitis of colon Mother Problem (finding) Colon polyps Immunizations Vaccine Date Status Comments Influenza, split virus, trivalent, injectable, contains preservative administered Note: [facility] bi-direct ional interface ; Source: Other Registry Afluria Qd administered Note: [facility] bi-directional interface ; Source: Other Registry SARS-COV-2 (COVID-19) vaccin e, vector non-replicating, recombinant [...] ional interface ; Source: Other Registry Influenza, split virus, trivalent, injectable, contains preservative administered Note: [facility] bi-direct ional interface ; Source: Other Registry Influenza, seasonal, injectable administe red Note: [facility] bi- directional interface ; Source: Other Registry tetanus toxoid, reduced diphtheria toxoid, and acellular pertussis vaccine, adsorbed administered Note: [facility] b i-directional interface ; Source: Other Registry Payers Payer name Insurance type Covered libertarian ID Authoriza tion(s) No Information Social History Type Description Quantity Date Captured [...] Prese nt Illness GI Symptoms or Concerns This is a 44-year-old female who presents for follow-up related to change in bowel habits and abdominal pain.I last saw the patient in clinic on 11/19/2024. Please see this note for previous details.Colonoscopy on 12/07/2024 revealed normal ileum and entire colon was normal. Right random colon biopsies negative. History of Present Illness: Patient endorses starting last morning she started to experience significant left upper quadrant abdominal pain that can radiate to her low back. Patient endorses she considered going to the emergency department over the weekend for further evaluation of left upper quadrant abdominal pain. Patient currently rates left upper quadrant abdominal pain 3-1/2 out of 10, and endorses pain is worse postprandially. She describes the pain as a dull ache. She also endorses associated abdominal fullness, abdominal bloating, and nausea. She is currently having what she estimates to be 5+ bowel movements daily. She endorses her stools are primarily liquid. She also endorses presence of mucus in the stool. She otherwise denies hematochezia, melena, vomiting fevers, chills, heartburn, dysphagia, or unintentional weight loss. GI Symptoms or Concerns This is a 43-year-old female who is here in consultation at the request of Giuliana Silva MD for evaluation related to abdominal pain.She was last seen by my colleague Lillian Ornelas NP on 08/03/2021. Please see this note for previous details.Today, patient reports about a month and half to 2 months ago she started noticing some left-sided abdominal pain. She went and saw her DIRECTOR OF OPTIMIZATION as she thought this could potentially be gynecologically related, as reportedly patient underwent a hysterectomy last November. This is a 43-year-old female who is here for evaluation related to abdominal pain. The patient states she underwent a pelvic ultrasound that was negative through her DIRECTOR OF OPTIMIZATION, I unfortunately do not have those records at this time. Patient states her DIRECTOR OF OPTIMIZATION also performed a pelvic exam as reportedly during penetration with intercourse left sided abdominal pain can worsen, per patient based off results of pelvic ultrasound and pelvic exam the patient's DIRECTOR OF OPTIMIZATION recommended further evaluation with gastroenterology. The patient also states that she underwent a CT scan for left sided abdominal pain through [facility] today, and fortunately do not have those records at this time but will request them.The patient reports she is having daily persistent left-sided abdominal pain, in the left upper quadrant and left lower quadrant. She is having what she estimates to be 3-4 bowel movements daily, Echo type 5 to 7 stools. The patient endorses her bowel movements typically occur postprandially with associated urgency. She does state she has occasional presence of mucus in her stool. She otherwise denies nocturnal stooling, hematochezia, melena, nausea, vomiting, heartburn, dysphagia, or unintentional weight loss.Past medical history significant for endometriosis. The patient does also note 2 years ago she was placed on Wegovy. A couple of weeks following initiating Wegovy. A couple of weeks following initiating Wegovy she was admitted to [facility] for partial bowel obstruction. The patient states she did not require surgery for small bowel obstruction, she states she was placed on n.p.o. status for 3 days with IV fluid administration with eventual passing of stool.Abdominal surgeries significant for 6 D&Cs for missed pregnancies, 2 D&Cs for retained placenta following this pregnancies, tummy tuck, ovarian cyst, appendectomy, cholecystectomy, and hysterectomy.The patient states her paternal side of the family's medical history is unknown. Known family history significant for colon cancer in maternal grandmother, reportedly diagnosed over the age of 60, and liver cancer in maternal uncle. She otherwise denies known family history of inflammatory bowel disease or celiac disease.She denies tobacco or marijuana use. Per the patient she consumes alcohol once every 6 months. She did denies NSAID medication use, only uses as needed.Previous Gastrointestinal Workup:09/19/2021 Colonoscopy- entire colon normal. Random colon biopsies negative.09/19/2021 EGD- normal esophagus, normal stomach, and normal duodenum. Gastric and duodenal biopsies negative. GI Symptoms or Concerns GI Symptoms or Concerns Adeline Erlinda north is referred to our office by [...] No Information Instructions Date Instruction Additional Infor binh It was nice seeing qasim varner todayAdeline! As we discussed -I will have my patient coordinator reach out to you to assist you in scheduling a CT scan for further evaluation of left upper quadrant abdominal pain -Continue with the daily fiber supplement for now-As you would like to defer further evaluation in the emergency department today, if abdominal pain worsens or if you develop a fever, worsening nausea with vomiting, are unable to pass gas, are unable to have a bowel movement, or see blood in your stool please present to the emergency department for further evaluation -Follow up in clinic in 1 month or sooner if questions or concerns arise [facility] can reach me by sending a message through your patient portal or calling my patient coordinator at [phone] ext. [phone] Related to Left upper quadrant abdominal pain It was nice meeting you today, Aaliyah! As we discussed -Blood work today including blood counts, hepatic function panel, lipase, chemistry panel, and thyroid testing (TSH) -I will request the records from your CT scan you reportedly completed today through [facility] to have on file-We will reach out to you to schedule a colonoscopy for further evaluation of loose stools/diarrhea and left sided abdominal pain -I recommend you trial taking a daily fiber supplement to help with bowel regularity and consistency. I recommend Citrucel, Benefiber, or FiberCon. You can get these over the counter. -Follow up in clinic following completion of your colonoscopy or sooner if questions or concerns arise HOW TO REACH MEYou can reach me by sending a message through your patient portal or calling my patient coordinator at [phone] ext. [phone] Related to Left sided abdominal pain Colon Cancer Prevention Related to Diarrhea, unspecified [...]
--- OUTSIDE RECORDS SUMMARY | 2025-01-29 23:30 | XMS_ITS | Continuity of Care Document ---
Author Organization [facility] Address [address] [address] [place] [address] Phone Care Team Providers Care Forest Fire Officer Name Role Phone No Information Unavailable Unavailable [...] - Active Procedures Procedure Date Offic/outpt E&m [facility]-ny 2 25 Colonoscopy Flex; W/bx 1/mx Level Iv-surg Path Gross/micro 25 Offic/outpt E&m New Mod-ny Routine Serum Collection Colonoscopy Flex; W/bx 1/mx Ugi Endo; W/bx 1/mx Level Iv-surg Path Gross/micro New Level 3 Init Inpt Cons New/est Mod-hi 7 Advance Directives Directive Yes / No Effective Date File Name No Information Encounters Encounter Description Practice Location Reason(s) For Visit Diagnoses Date Provider Providers Copied on Encounter [facility], [address] [address], [place], [id number], [place] tel:[phone] No Information No Information Offic/outpt E&m [facility] Mod-ny 2 [facility], [address] [address], [place], [id number], [place] tel:[phone] [facility] GI Symptoms or Concerns (chief complaint) Left upper quadrant abdominal painAltered bowel habitsAbdomin al bloatingNause a 5 Saqib Cunningham. [address] [place] [address], [id number], [place]. tel:[phone] Giuliana Silva MD. tel:[phone] ng Provider: Referral Self, USE FOR SELF REFERRALS. [facility], [address] [address], [place], [id number], [place] tel:[phone] [facility] Change in bowel habitUnspecif ied abdominal painChange in bowel habit 5 Ramos Azar. [address], [id number], [place]. tel:[phone] Giuliana Silva MD. tel:[phone] InVisM Provider: Referral Self, USE FOR SELF REFERRALS. [facility], [address] [address], [place], [id number], [place] tel:[phone] [facility] No Information 5 Gadiel White. [address] [place] [address], [address], [id number], [place]. tel:[phone] Offic/outpt E&m [facility] Mod-[facility], [address] [address], [place], [id number], [place] tel:[phone] [facility] GI Symptoms or Concerns (chief complaint) Left sided abdominal painLoose stools 5 Saqib ALEJANDRA Marisa. [address] [facility], [facility] [address], [place], [place], [id number], [place]. tel:[phone] Giuliana Silva MD. tel:[phone] juarez Provider: Giuliana Ghosh, [address], [place], [address]. tel:[phone] [facility], [address] [address], [place], [id number], [place] tel:[phone] [facility] GI Symptoms or Concerns (chief complaint) Diarrhea, unspecified typeNauseaDia rrhea, unspecified typeUnspecifi ed abdominal pain 1 Harry Thorpe. [address] [place] [address], [facility] [address], [place], [id number], [place]. tel:[phone] Giuliana Silva MD. tel:[phone] juarez Provider: Referral Self, USE FOR SELF REFERRALS. New Level 3 [facility], [address] [address], [place], [id number], [place] tel:[phone] [facility] GI Symptoms or Concerns (chief complaint) Left lower quadrant abdominal painDiarrhea, unspecified typeDark stoolsNausea 1 No Information Referring Provider: Referral Self, USE FOR SELF REFERRALS. [facility], [address] [address], [place], [id number], [place] tel:[phone] [facility] No Information 1 Ana Jorgensen. [address] [facility], [address], [id number], [place]. tel:[phone] Init Inpt Cons New/est Mod-hi [facility], [address] [address], [place], [id number], [place] tel:[phone] [facility] No Information Jun-201 7 No Information Referring Provider: Jay Palm MD R, [address] [place], [address]. tel:[phone] Family History Family Member Type Diagnosis Age [...] Registry Payers Payer name Insurance type Covered constitution party ID Authoriza tion(s) No Information Social History [...] abdominal pain. She went and saw her TRIMMING MACHINE SET UP OPERATOR as she thought this could potentially be gynecologically related, as reportedly patient underwent a hysterectomy last November. This is a 43-year-old female who is here for evaluation related to abdominal pain. The patient states she underwent a pelvic ultrasound that was negative through her TRIMMING MACHINE SET UP OPERATOR, I unfortunately do not have those records at this time. Patient states her TRIMMING MACHINE SET UP OPERATOR also performed a pelvic exam as reportedly during penetration with intercourse left sided abdominal pain can worsen, per patient based off results of pelvic ultrasound and pelvic exam the patient's TRIMMING MACHINE SET UP OPERATOR recommended further evaluation with gastroenterology. The patient also states that she underwent a CT scan for left sided abdominal pain through [facility] today, and fortunately do not have those records at this time but will request them.The patient reports she is having daily persistent left-sided abdominal pain, in the left upper quadrant and left lower quadrant. She is having what she estimates to be 3-4 bowel movements daily, [place] type 5 to 7 stools. The patient [...] following initiating Wegovy she was admitted to [facility] for partial bowel obstruction. The patient states [...] questions or concerns arise HOW TO [facility]ACH [facility] can reach me by sending a message through your patient portal or calling my patient coordinator at [phone] ext. [phone] Related to Left upper quadrant abdominal pain It was nice meeting you today, Aaliyah! As we discussed -Blood work today including blood counts, hepatic function panel, lipase, chemistry panel, and thyroid testing (TSH) -I will request the records from your CT scan you reportedly completed today through [facility] to have on file-We will reach out [...] portal or calling my patient coordinator at [phone] ext. [phone] Related to Left sided abdominal pain Colon [...]
--- OUTSIDE RECORDS SUMMARY | 2025-04-05 05:40 | XMS_ITS | Encounter Summary ---
Author Organization [place] Address [address] [place] [address]. [place] [address] Care Team Providers Care Enamel Machine Operator Name Role Phone No Ref-Primary, Physician Primary Care Provider Marianna Livingston GC Unavailable [phone] Giuliana Brady MD Unavailable [phone] Mil Juan GC Unavailable [phone] Reason for Visit * Reason Onset Date Comments *-*INCOMING RECORDS*-* 03/09/2025 Encounter Details Date Type Department Care Team (Late st Contact Info) Description 03/09/2025 PRE VISIT [facility] [address] [place] [address] Marianna Livingston, GC [address] [place] [address] *-*INCOMING RECORDS*-* Social History Tobacco Use Types Packs/Day Years Used Date Smoking Tobacco: Never Smokeless Tobacco: Never Alcohol Use Standard Drinks/Week Comments Yes 0 (1 standard drink = 0.6 oz pur e alcohol) Adolescent Education Answer Date Record ed Getting School Help Needed Not on file 07/19 Comments Unknown Sex and Gender Information Value Date Recorded Sex Assigned at Female 09/15/2020 7:56 PM RETAIL WIRELESS SALES REPRESENTATIVE Legal Sex Female 5:14 AM RETAIL WIRELESS SALES REPRESENTATIVE Gender Identity Female 09/15/2020 7:56 PM RETAIL WIRELESS SALES REPRESENTATIVE Sexual Orientation Straight 09/15/2020 7: 56 PM RETAIL WIRELESS SALES REPRESENTATIVE documented as of this encounter Miscellaneous Notes * Telephone Encounter - Jameel Paz - 11/27/2024 11:56 AM CST RECORDS STATUS - RISK MANAGEMENT RECORDS RECEIVED FROM: [facility] NOTES STATUS DETAILS OFFICE NOTE from referring provider [facility] 11/13/2024 - Dr. Giuliana Tanner OFFICE NOTE from medical oncologist OFFICE NOTE from genetic counselor OPERATIVE REPORT MEDICATION LIST [facility] LABS PATHOLOGY REPORTS ONLY ANYTHING RELATED TO DIAGNOSIS [facility] GENONOMIC TESTING TYPE: IMAGING (NEED IMAGES & REPORT) CT SCANS MRI MAMMOS XRAYS ULTRASOUND PET [place] WIRELESS SALES REPRESENTATIVE documented in this encounter Plan of Treatment Upcoming Encounters Date Type Department Care Team (Late st Contact Info) Description 08/06/2025 11:15 AM CDT Virtual Visit [facility] [address] [place] [phone] Giuliana Brady MD [facility] [address] [place] [address] Mil Juan GC [address] [place] [id number] documented as of this encounter Visit Diagnoses Not on filedocumented in this encounter Care Teams Enamel Machine Operator Relationship Specialty Start Date End Date No Ref-Primary, Physician PCP - General 04/10/18 Marianna Livingston GC [address] [place] [address] Genetic Counselor Genetic Counselor, [place] 11/27/24 Giuliana Brady MD [facility] [address] [place] [address] tissue technologist 11/27/24 Mil Juan GC [address] [place] [address] [id number] Genetic Counselor Genetics, Clinical 03/04/25 documented as of this encounter
--- OUTSIDE RECORDS SUMMARY | 2025-04-05 05:40 | XMS_ITS | Clinical Summary ---
Author Organization [facility] Address [address] [place] [address] Care Team Providers Care Paper Tube Machine Operator Name Role Phone Brit Butterfield Primary Care Provider [phone] Allergies Active Allergy Reactions Criticality Noted Date Comments Adhesive Rash 02/14/2010 Bee Pollen Anaphylaxis 02/13/2010 Prochlorperazine Intolerance-Can't Take 013 feels like i am climbing the nayak. Droperidol Intolerance-Can't Take 04/25/2013 Feels like I am climbing the nayak. Sumatriptan Headache 06/28/2015 Metoclopramide Visual Disturbances 06/24/2017 Phenothiazines *Unknown 01/18/2013 jittery Propofol *Unknown 06/12/2010 [place] Jelly Anaphylaxis High 05/18/2009 Scopolamine Bleeding 04/25/2013 (Patch) At site Ondansetron Intolerance-Can't Take 04/25/2013 feel like I am climbing the nayak. Medications albuterol HFA (PRO-AIR,VENTOLI N,PROVENTIL) 90 mcg/actuation inhalerIndicatio ns:Asthma exacerbation (HC) Inhale 2 Puffs by mouth every 4 hours while awake. 1 Inhaler 0 06/28/20 15 Active albuterol (PROVENTIL) 0.083 % neb solutionIndicati ons:Asthma exacerbation (HC) Inhale 3 mL via a nebulizer every 4 hours if needed for Shortness Of Breath. 1 box 0 06/28/20 15 Active EPINEPHrine (EPIPEN) 0.3 mg/0.3 mL (1:1,000) injectionIndicat ions:Asthma exacerbation (HC) Inject 0.3 mg intramuscular one time if needed for Allergic Reaction for up to 1 dose. 1 Each 0 06/28/20 15 Active promethazine (PHENERGAN) 25 mg tabletIndication s:Pain of upper abdomen Take 1 tablet by mouth every 6 hours if needed for Nausea/Vomiting. 10 tablet 0 11/09/19 16 Active PNV cmb#95-ferrous fumarate-FA 28 mg iron- 800 mcg tab Take 2 tablets by mouth. Active methylergonovine (METHERGINE) 0.2 mg tabletIndication s:Spontaneous (HC) Take 1 tablet by mouth every 8 hours. 6 tablet 04/14/20 18 Active HYDROcodone-acet aminophen, 5-325 mg, (NORCO) per tabletIndication s:Spontaneous (HC) Take 1-2 tablets by mouth every 6 hours if needed for Pain (For moderate to severe pain.) Max acetaminophen dose: 4000 mg in 24 hrs. 6 tablet 04/14/20 18 Active ibuprofen (ADVIL; MOTRIN) 600 mg tabletIndication s:Spontaneous (HC) Take 1 tablet by mouth every 6 hours if needed for Pain. Maximum of 3200 mg in 24 hours. 30 tablet 1 04/14/20 18 Active docusate (COLACE) 100 mg capsuleIndicatio ns:Spontaneous (HC) Take 1 capsule by mouth 2 times daily if needed for Constipation. 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 Last Filed Vital Signs Vital Sign Reading Time Taken Comments Blood Pressure 135/87 04/14/2018 8:15 PM CDT Pulse 97 04/14/2018 8:15 PM CDT Temperature 36.9 C (98.5 F) 04/14/2018 9:00 PM CDT Respiratory Rate 17 04/14/2018 8:15 PM CDT [...] age 18+ 1996 Hepatitis C screening for ag e 18-79 1996 Hepatitis B series for 19+ ( 1 of 3 - 19+ 3-dose series) 1997 Depression screening for age 12+ 09/26/2017 09/26/2016 Tetanus booster 05/19/2023 05/19/2013 Colonoscopy through age 75 2023 Lipids for age 45-75 2023 Mammogram for age 45-75 2023 COVID-19 vaccine series (2023- season) 2024 Influenza Vaccine (Season Ended) 2025 Pap test for age 21-65 10/10/2025 , 10/10/2022 Tdap Completed 05/19/2013 Pneumococcal series for age 6-49 Aged Out No longer eligible b ased on patient's age to complete this topic Procedures Procedure Name Priority Date/Time Associated Diagnosis Comments AGRICULTURE DEPARTMENT CHAIR THIN PREP PAP SCREEN IMAGED Routine 10/10/2022 12:00 PM FORGE SHOP MACHINE REPAIRER from Last 3 Months or Most Recently Relevant to Health Maintenance Results * AGRICULTURE DEPARTMENT CHAIR THIN PREP PAP SCREEN IMAGED (10/10/2022 12:00 PM FORGE SHOP MACHINE REPAIRER) Case Report Gynecologic Cytology Report Case: [id number] Authorizing Provider: Giuliana Tanner Collected: 10/10/2022 1200 MD Mel Ordering Location: [facility] Received: 10/11/2022 1222 First Screen: Coral Bazan Specimen: AGRICULTURE DEPARTMENT CHAIR ThinPrep Vial Screening, Cervical 10/29/2022 11:10 AM FORGE SHOP MACHINE REPAIRER [facility] INTERPRETATION/ RESULT NEGATIVE FOR INTRAEPITHELIAL LESION OR MALIGNANCY (NIL) (none) 10/29/2022 11:10 AM FORGE SHOP MACHINE REPAIRER [facility] at 1110 FORGE SHOP MACHINE REPAIRER SPECIMEN ADEQUACY Satisfactory for evaluation Endocervical component present 10/29/2022 11:10 AM FORGE SHOP MACHINE REPAIRER [facility] HPV REQUEST HPV and PAP 10/29/2022 11:10 AM FORGE SHOP MACHINE REPAIRER [facility] Date of LMP 10/29/2022 11:10 AM FORGE SHOP MACHINE REPAIRER [employer] [facility] Comment:unknown Last Pap Date 12/02/2012 10/29/2022 11:10 AM FORGE SHOP MACHINE REPAIRER [facility] Last Pap Result NIL 11:10 AM FORGE SHOP MACHINE REPAIRER [employer] [facility] Abnormal Pap or [place] Bx in last 5 years No 10/29/2022 11:10 AM [facility] Menstrual Status 10/29/2022 11:10 AM [facility] Comment:unknown [place] Bx Done Today No 10/29/2022 11:10 AM [facility] Additional Information 10/29/2022 11:10 AM [facility] Comment: Interpreted at [facility] - [address], [place] [address] Automated Review Successful 10/29/2022 11:10 AM [facility] Comment:Specimen processed s uccessfully by automated research & insights executive device, ReactionPrep Imaging System, [employer] ANCILLARY TESTING AGRICULTURE DEPARTMENT CHAIR HPV Ordered, Please see separate report 10/29/2022 11:10 AM [facility] Note The pap test is a screening technique, not a diagnostic procedure. It is used primarily to screen for squamous cancers and precursor lesions. Published studies have shown that it is subject to both false negative and false positive results. The pap test should not be used as the sole means to diagnose or exclude pre-malignant and malignant lesions. 10/29/2022 11:10 AM [facility] Other (Cervical) 10/10/2022 12:00 PM FORGE SHOP MACHINE REPAIRER 10/11/2022 12:22 PM FORGE SHOP MACHINE REPAIRER us Giuliana Tanner MD PATHOLOGY/CYTOLOGY Final Result [facility] [address] [place] [address], from Last 3 Months or Most Recently Relevant to Health Maintenance Insurance [facility] Advance Directives * Full Code (Latest Code [...] 1:43 PM 07/27/2013 3:37 PM Care Teams Paper Tube Machine Operator Relationship Specialty Start Date End Date Brit Butterfield PA PCP - General Physician Copier Field Service Technician 04/11/18
--- OUTSIDE RECORDS SUMMARY | 2025-04-05 05:40 | XMS_ITS | Clinical Summary ---
Author Organization [facility] Address [address] [place] [address] Care Team Providers Care Pediatric Licensed Practical Nurse Name Role Phone Unavailable Primary Care Provider Unavailabl e Source Comments Patient records contain information from all sites at [facility]. For routine questions regarding patient records, call [phone] during business hours, M-F 8:00 AM - 5:00 PM Central Time. Record requests for emergency care only can be directed to [phone] at any time.[facility] Allergies Active Allergy Reactions Criticality Noted Date Comments Adhesive Tape-Silicones Other (see comments) Propofol Other (see comments) 06/12/2010 Bee Pollen Anaphylaxis 08/19/2009 Droperidol Anxiety 12/03/2010 Metoclopramide Other (see comments) 06/24/2017 Ondansetron Other (see comments) 04/25/2013 feel like I am climbing the nayak. Phenothiazines Other (see comments) 01/18/2013 jittery Prochlorperazine Anxiety 12/03/2010 [place] Jelly Anaphylaxis 05/18/2009 Scopolamine Rash 07/29/2017 Sumatriptan [...] Than 35 Year Old 04/07/2018 10/08/2018 Immunizations Immunization Administration Dates Next Due DTaP (Infanrix, Tripedia) [...] PM CDT Legal Sex Female 9:04 PM IT SENIOR SOFTWARE ENGINEER JAVA Gender Identity Female 03/09/2019 2:31 PM CDT Sexual Orientation Straight 03/09/2019 2: 31 PM CDT Last Filed Vital Signs Vital Sign Reading Time Taken Comments Blood Pressure 125/77 05/12/2023 3:45 PM CDT Pulse 109 05/12/2023 4:00 PM CDT Temperature 37.4 C (99.3 F) 04/14/2019 5:30 PM CDT Respiratory Rate 23 05/12/2023 1:45 PM CDT [...] 04/14/2022 04/14/2019, 04/27/2013, 01/14/2013, Additional history exists Cervical/Vaginal Cancer Screening 11/23/2022 11/23/2019, 04/07/2018, 04/07/2018, Additional history exists COVID-19 Vaccine ( season) 2024 01/20/2021, 10/25/2020 Influenza Vaccine (#1) 2024 , 10/31/2019, 09/29/2018, Additional history exists Depression Screening (Annual PHQ-2) 10/28/2024 DTaP,Tdap,and Td Vaccines (4 - Td or Tdap) 11/04/2033 11/04/2023, 05/19/2013, 07/18/2007, Additional history exists HIV Screening Completed 04/07/2018, 12/30/2012 Hepatitis B Screening Discontinued 04/07/2018 IPV Vaccines Aged Out No longer eligi ble based on patient's age to complete this topic Pneumococcal vaccine (0-49 years) Aged Out No longer eligible based on patient's age to complete this topic Medical Devices Implanted Type Area Head Orthopedic Team Physician Device Identifier Shelf Expiration Date Model / Serial / Lot Standard-Screw William 4.5 X 70 - Armando [id number] Implanted:Qty: 1 on 09/08/2010 Hardware e.g. pins/screws/ rods Depuy Synthes Description:Device Manufactu rer - Synthes. Device Status Text - [id number]. Pelvic Rec-Screw William 4.5x 90 - Armando [id number] Implanted:Qty: 1 on 09/08/2010 Hardware e.g. pins/screws/ rods Depuy Synthes Description:Device Manufactu rer - Synthes. Device Status Text - [id number]. Pin Kevin Smooth Single End 1 8 - Armando [id number] Implanted:Qty: 6 on 09/08/2010 Hardware e.g. pins/screws/ rods Clyde Description:Device Manufactu rer - Clyde Ray.. Device Status Text - [id number]. Pelvic [...] 04/07/2018 9:13 AM CDT Normal Not First HEPATITIS B SURFACE ANTIGEN Routine 04/07/2018 9:13 AM CDT Normal Not [...] M.D. LAB BLOOD ADD-ON Final Resul t [facility] [address] [place] [address], [facility] * ThinPrep w/HPV Co-Test Screen (04/07/2018 11:51 AM CDT) 04/14/2018 11:41 AM CDT [facility] Report electronically signed by RUBEN BELLA I verify that I have examined all relevant slides/materials for the specimen(s) and rendered or confirmed the diagnosis. 04/14/2018 11:41 AM CDT [facility] Gross Description Received specimen in a ThinPrep vial. 04/14/2018 11:41 AM CDT [facility] Pap Test Source Cervical/Endocervi juan carlos 04/14/2018 11:41 AM CDT [facility] Clinical History 04/14/20 11:41 AM CDT [facility] Menstrual Status(LMP, PM, ) 04/14/2018 11:41 AM CDT [facility] Hormone Therapy/Contracep tives no 04/14/2018 11:41 AM CDT [facility] Interpretation Cervical/Endocervi juan carlos (ThinPrep): Satisfactory for Evaluation Negative for Intraepithelial Lesion or Malignancy High Risk HPV Testing results are NEGATIVE. HPV by Marketing Sales Supervisor-Medi ated Amplification (TMA) for E6/E7 viral messenger RNA (mRNA) is an in-vitro diagnostic test for the detection of 14 high-risk Human Papilloma (HPV) types (16, 18, 31, 33, 35, 39, 45, 51, 52, 56, 58, 59, 66, and 68) in cervical specimens. Additional testing performed at [facility], [facility] [place] [address]. 04/14/2018 11:41 AM T [facility] Varies (Cervix/Endocerv ix) 04/07/2018 11:51 AM CDT 04/07/2018 2:04 PM CDT Cruz Estrada M.D. LAB PAP PATHDX ORDERABLES F inal Result Performing Organization Address [facility]/ZIP Co de Phone Number [facility] [address] [place] [address], [facility] * HIV-1/-2 Ag and Ab Screen (04/07/2018 9:13 AM CDT) HIV-1/-2 Ag and Ab Screen, S Non-Reacti ve Non-Reacti ve 04/07/2018 7:59 PM CDT [facility] HIV-1 Ab, S Non-Reacti ve Non-Reacti ve 04/07/2018 7:59 PM CDT [facility] HIV-1 Ag, S Non-Reacti ve Non-Reacti ve 04/07/2018 7:59 PM CDT [facility] HIV-2 Ab, S Non-Reacti ve Non-Reacti ve 04/07/2018 7:59 PM CDT [facility] Blood (Blood, Venous) 04/07/2018 9:13 AM CDT 04/07/2018 6:32 PM CDT Cruz Estrada M.D. LAB MICROBIOLOGY - BLOOD OR DERABLES Final Result Performing Organization Address [facility] Co de Phone Number [facility] [address] [place] [address], [facility] * Hepatitis B Surface Antigen (04/07/2018 9:13 AM CDT) HBs Antigen, S Nonreactive Nonreactive 04/07/20 18 2:48 PM CDT [facility] Comment: Biotin has been identified by the presentation manager as a potential interfering substance. Higher concentrations of biotin may be found in multivitamins, hair/nail supplements, and workout supplements. If the result does not match clinical observations, repeat testing after patient refrains from the use of supplements for at least 12 hours. Blood (Blood, Venous) 04/07/2018 9:13 AM CDT 04/07/2018 2:08 PM CDT Cruz Estrada M.D. LAB MICROBIOLOGY - BLOOD OR DERABLES Final Result [facility] [address] [place] [address], [facility] from Last 3 Months or Most Recently Relevant to Health Maintenance Insurance [employer] [facility] [place] [id number] Advance Directives For more information, please contact: [phone] Documents on File Type Date Recorded Patient Core Dropper Expl anation Advance Directives 09/08/2010 12:00 AM Elena dee document. See document viewer.
--- OUTSIDE RECORDS SUMMARY | 2025-04-05 05:40 | XMS_ITS | Clinical Summary ---
Author Organization [facility] Address [address] [place] [address]. [place] [address] Care Team Providers Care Box Strapper Name Role Phone No Ref-Primary, Physician Primary Care Provider Marianna Livingston GC Unavailable [phone] Giuliana Brady MD Unavailable [phone] Mil Juan GC Unavailable [phone] Allergies Active Allergy Reactions Criticality Noted Date Comments Bee Pollen Anaphylaxis High 02/13/2010 Bees Anaphylaxis High 06/24/2017 Prochlorperazine Visual Disturbance 04/25/2013 Other reaction(s): Intolerance-Can't Take feels like i am climbing the nayak. Droperidol 01/18/2013 Other reaction(s): Other, see comments Jittery, skin crawling Other reaction(s): Intolerance-Can't Take Feels like I am climbing the nayak. Liquid Adhesive Rash Low 02/14/2010 Phenothiazines 01/18/2013 Other reaction(s): Other, see comments jittery Metoclopramide Visual Disturbance 06/24/2017 [place] Jelly Anaphylaxis High 05/18/2009 Scopolamine 04/25/2013 Other reaction(s): Bleeding (Patch) At site Sumatriptan 06/28/2015 Other reaction(s): Headache Ondansetron Visual Disturbance 01/18/2013 Other reaction(s): Intolerance-Can't Take feel like I am climbing the nayak. Other reaction(s): Other, see comments jittery Medications EPINEPHrine (EPIPEN/ADRENAC LICK/OR ANY BX GENERIC EQUIV) 0.3 MG/0.3ML injection 2-pack Inject 0.3 mg into the muscle as needed for anaphylaxis Active albuterol (PROAIR HFA/PROVENTIL HFA/VENTOLIN HFA) 108 (90 BASE) MCG/ACT Inhaler Inhale 2 puffs into the lungs every 6 hours Active Active Problems Problem Noted Date Diagnosed Date RUQ pain 06/28/2017 Abdominal pain 06/28/2017 Acute cholecystitis 06/24/2017 Encounters Date Type Department Care Team Description 03/09/2025 PRE VISIT [facility] [address] [place] [phone] Marianna Livingston GC *-*INCOMING RECORDS*-* 03/03/2025 [facility] Medical Advice [facility] [address] [place] [phone] Yaa Meredith from Last 3 Months Social History Tobacco Use Types Packs/Day Years Used Date Smoking Tobacco: Never Smokeless Tobacco: Never Alcohol Use Standard Drinks/Week Comments Yes 0 (1 standard drink = 0.6 oz pur e alcohol) Adolescent Education Answer Date Record ed Getting School Help Needed Not on file 07/19 Comments Unknown Sex and Gender Information Value Date Recorded Sex Assigned at Female 09/15/2020 7:56 PM SUPERVISOR BLAST FURNACE Legal Sex Female 5:14 AM SUPERVISOR BLAST FURNACE Gender Identity Female 09/15/2020 7:56 PM SUPERVISOR BLAST FURNACE Sexual Orientation Straight 09/15/2020 7: 56 PM SUPERVISOR BLAST FURNACE Last Filed Vital Signs Vital Sign Reading Time Taken Comments Blood Pressure 157/112 04/10/2018 2:44 PM CDT Pulse 81 06/30/2017 8:24 AM CDT Temperature 36.8 C (98.2 F) 04/10/2018 12:18 PM CDT Respiratory Rate 20 04/10/2018 12:18 PM CDT Oxygen Saturation 100% 04/10/2018 12:18 PM CDT Inhaled Oxygen Concentration - - Weight 97.5 kg (215 lb) 06/28/2017 12:03 PM CDT Height 157.5 cm (5' 2) 06/28/2017 12:03 PM CDT Body Mass Index 39.32 06/28/2017 12:03 PM CDT Plan of Treatment Upcoming Encounters Date Type Department Care Team (Late st Contact Info) Description 08/06/2025 11:15 AM CDT Virtual Visit [facility] [address] [place] [address] Giuliana Brady MD [facility] [address] [place] [address] Mil Juan, GC [address] [place] [address] Health Maintenance Due Date Last Done Comments ADVANCE CARE PLANNING 1978 ANNUAL REVIEW OF HM ORDERS 1978 CT COLONOGRAPHY 1978 FIT 1978 FLEX SIG 1978 sDNA (Cologuard) 1978 COLONOSCOPY 1988 COLORECTAL CANCER SCREENING 1988 HEPATITIS C SCREENING 1996 LIPID 2018 DIABETES SCREENING 06/29/2020 06/29/2017, 0 06/28/2017, 06/27/2017, Additional history exists HEPATITIS B VACCINE (2 of 3 - 19+ 3-dose series) 09/23/2020 08/26/2020 YEARLY PREVENTIVE VISIT 11/23/2020 11/23/2019, 11/09 COVID-19 VACCINE ( - season) 2024 01/20/2021, 10/25/2020 PHQ-2 (once per calendar year) 2024 PAP 10/10/2025 10/10/2022, 10/29, 04/07/2018 MAMMO SCREENING 08/24/2026 08/24/2024, 07/29, 08/21/2022, Additional history exists ZOSTER VACCINE (1 of 2) 2028 DTAP/TDAP/TD VACCINE (5 - Td or Tdap) 11/04/2033 11/04/2023, 05/19/2013, 07/18/2007, Additional history exists HIV SCREENING Completed 04/07/2018 INFLUENZA VACCINE Completed 09/25/2024, , 10/31/2019, Additional history exists HPV VACCINE Aged Out No longer eligi ble based on patient's age to complete this topic MENINGITIS VACCINE Aged Out No longer eligible based on patient's age to complete this topic PNEUMOCOCCAL VACCINE: PEDIATRICS (0 to 5 YEARS) AND AT-RISK PATIENTS (6 to 49 YEARS) Aged Out No longer eligible based on patient's age to complete this topic Procedures Procedure Name Priority Date/Time Associated Diagnosis Comments MAMMOGRAM - HIM SCAN 08/24/2024 12:00 AM CDT COMPREHENSIVE METABOLIC PANEL Routine 06/29/2017 7:09 AM CDT RUQ abdominal pain from Last 3 Months or Most Recently Relevant to Health Maintenance Results * Mammogram - HIM Scan (08/24/2024 12:00 AM CDT) Anatomical Region Laterality Modality Other 08/24/2024 us Provider Outside [facility] [place] [place] MAMMOGRAPHY ORDERABLES Aurora l Result * (ABNORMAL) Comprehensive metabolic panel (06/29/2017 7:09 AM CDT) Sodium 138 133 - 144 mmol/L 06/29/2017 7:50 AM [facility] Potassium 3.5 3.4 - 5.3 mmol/L 06/29/2017 7:50 AM [facility] Chloride 104 94 - 109 mmol/L 06/29/2017 7:50 AM [facility] Carbon Dioxide 27 20 - 32 mmol/L 06/29/2017 7:50 AM [facility] Anion Gap 7 3 - 14 mmol/L 06/29/2017 7:50 AM [facility] Glucose 85 70 - 99 mg/dL 06/29/2017 7:50 AM [facility] Urea Nitrogen 4(L) 7 - 30 mg/dL 06/29/2017 7:50 AM [facility] Creatinine 0.52 0.52 - 1.04 mg/dL 06/29/2017 7:50 AM [facility] GFR Estimate >90 >60 mL/min/1.7 m2 06/29/2017 7:50 AM [facility] Comment:Non GFR Calc GFR Estimate If Black >90 >60 mL/min/1.7 m2 06/29/2017 7:50 AM [facility] Comment: GFR Calc Calcium 8.2(L) 8.5 - 10.1 mg/dL 06/29/2017 7:50 AM [facility] Bilirubin Total 0.5 0.2 - 1.3 mg/dL 06/29/2017 7:50 AM T [facility] Albumin 3.0(L) 3.4 - 5.0 g/dL 06/29/2017 7:50 AM [facility] Protein Total 6.4(L) 6.8 - 8.8 g/dL 06/29/2017 7:50 AM [facility] Alkaline Phosphatase 93 40 - 150 U/L 06/29/2017 7:50 AM [facility] ALT 60(H) 0 - 50 U/L 06/29/2017 7:50 AM [facility] AST 24 0 - 45 U/L 06/29/2017 7:50 AM [facility] Blood specimen (specimen) 06/29/2017 7:09 AM CDT 06/29/2017 7:19 AM T us Nirav Mckeon DO LAB - BLOOD ORDERABLES Final R esult [facility] [address] [place] [address], [facility] [phone] from Last 3 Months or Most Recently Relevant to Health Maintenance Insurance [facility] CHOICE [facility] CHOICE Advance Directives For more information, please contact: [phone] * Full Code (Latest Code Status on File) Date Activated Date Inactivated Comments 06/28/2017 6:29 PM 06/30/2017 4:46 PM * Full Code Date Activated Date Inactivated Comments 06/24/2017 5:55 AM 06/26/2017 6:22 PM Care Teams Box Strapper Relationship Specialty Start Date End Date No Ref-Primary, Physician PCP - General 04/10/18 Marianna Livingston GC [address] [place] [address] Genetic Counselor Genetic Counselor, MS 11/27/24 Giuliana Brady MD [address] [address] pen or pencil assembly machine operator 11/27/24 Mil Juan GC [address] [place] [address] Genetic Counselor Genetics, Clinical 03/04/25
--- OUTSIDE RECORDS SUMMARY | 2025-04-05 05:40 | XMS_ITS | Clinical Summary ---
Author Organization [employer] Address [address] [place] [address] Care Team Providers Care Wire Drawing Setter Name Role Phone Brit Butterfield PA-C Primary Care Provider [phone] Source Comments You are receiving this document [...] for each transition of care or referral. [employer] Allergies Active Allergy Reactions Criticality Noted Date Comments Adhesive Rash Low 02/14/2010 Bee Pollen Anaphylaxis 05/18/2009 Phenothiazines Other, see comments 01/18/2013 jittery Droperidol Other, see comments 01/18/2013 Jittery, skin crawling Metoclopramide Other, see comments 06/24/2017 Prochlorperazine Other, see comments 04/25/2013 Other reaction(s): Intolerance-Can't Take feels like i am climbing the nayak. feels like i am climbing the nayak. [place] Jelly Anaphylaxis 05/18/2009 Scopolamine 07/29/2017 Sumatriptan Headache 06/28/2015 Ondansetron Other, see comments 01/18/2013 rosana Medications EPINEPHrine (EPIPEN) 0.3 MG/0.3ML injectionIndicati ons:Bee sting allergy Inject 0.3 mL intramuscularly as needed. May repeat. 2 Each 11/23/19 20 Active Norgestimate-Eth Estradiol (ORTHO-CYCLEN) 0.25-35 MG-MCG tabletIndications :Encounter for surveillance of contraceptive pills 1 tab po qd 84 Tablet 3 11/23/19 20 Active traZODone (DESYREL) 50 MG tabletIndications :Insomnia, unspecified type Take 1 Tablet by mouth daily at bedtime. 30 Tablet 3 02/05/20 20 Active ipratropium-albut adam (DUONEB) 0.5-2.5 (3) mg/3ml nebulizer solutionIndicatio ns:Mild intermittent asthma with acute exacerbation (HRC) Inhale 3 mL every 6 hours as needed for Wheezing. 90 mL 06/14/20 20 Active ALBUterol sulfate HFA 108 (90 Base) MCG/ACT inhalerIndication s:Mild intermittent asthma with acute exacerbation (HRC) Inhale 2 Puffs every 4 hours as needed for Wheezing. also take 15-30 min prior to exercise 8.5 g 2 06/14/20 20 Active hydrOXYzine HCl (ATARAX) 25 MG tabletIndications :DEZ (generalized anxiety disorder) (HRC),Insomnia, unspecified type 1/2 tab po q6 hrs prn anxiety, 1-2 tabs po qhs prn insomnia 30 Tablet 1 07/25/20 20 Active sertraline (ZOLOFT) 50 MG tabletIndications :Mild episode of recurrent major depressive disorder (HRC),DEZ (generalized anxiety disorder) (HRC) 1 tab po qd x 2 weeks then 2 tabs po qd 60 Tablet 3 08/24/20 20 Active cyclobenzaprine (FLEXERIL) 10 MG tabletIndications :Spasm of muscle TAKE 1 TABLET BY MOUTH AT BEDTIME NEEDED FOR PAIN /SPASM 30 Tablet 1 10/31/19 21 Active Active Problems Problem Noted Date Diagnosed Date Fatigue 07/24/2017 PCOS (polycystic ovarian syndrome) 11/09/2016 Mild intermittent asthma without complication Migraine without aura and wi thout status migrainosus, not intractable 11/09/2016 Obesity 11/09/2016 Immunizations Immunization Administration Dates Next Due DTaP 07/18/2007 Flu Vac (18-64 Yrs), Intradermal 08/08/2015,11/2011 Flu Vac (3+ yrs) 09/11/2010 Flu Vac Preserv Free (3+yrs) 09/11/2010 Fluzone Qiv Multidose Vial 0.25 (6-35 Mos) 07/24 HepA Adult (19+ yrs) 07/19/2017,11/09/2016 Influenza IIV4 (Quadrivalent) 0.5mL (11093) 01/2020,09/29/2018,07/21/2017 Influenza, Unspecified Formulation 08/09/2014, Tdap 05/19/2013,07/18/2007 [...] Answer Date Recorded PHQ-2 Score 0 08/24/2020 Comments No Sex and Gender Information Value Date Recorded Sex Assigned at Female 04/17/2022 9:23 AM CDT Legal Sex Female 5:47 AM CDT Gender Identity Female 04/17/2022 9:23 AM CDT Sexual Orientation Straight 04/17/2022 9: 23 AM CDT 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 on file Not on file Not on fi le Last Filed Vital Signs Vital Sign Reading Time Taken Comments Blood Pressure 120/94 07/25/2020 1:08 PM CDT Pulse 113 07/25/2020 1:08 PM CDT Temperature 36.9 C (98.4 F) 06/14/2020 3:56 PM CDT Respiratory Rate 19 06/14/2020 3:56 PM CDT [...] 1978 Hep C Screening (Preventive Services) 1978 HepB Vaccine (1) 1997 Pneumococcal Vaccine (1 of 2 - PCV) 1997 Adult Preventive Visit 11/23/2020 11/23/2019, 2016 Asthma ACT (score of 20 or higher) 11/23/2020 11/23/2019, 11/23/2019 (Completed), 03/05/2018, Additional history exists Mammogram 11/24/2020 11/24/2019 DTaP/Tdap/Td Vaccine (4 - Tdap) 05/19/2023 05/19/2013, 07/18/2007, 07/18/2007 COVID-19 Vaccine (3 - season) 2024 01/20/2021, 10/25/2020 Cervical Cancer Screening 11/23/20242019, 11/23/2019, 11/09/2016, Additional history exists Cholesterol 11/24/2024 11/24/2019, 11/09/2016 Influenza Vaccine (Season Ended) 2025 10/31/2019, 09/29/2018, 07/21/2017, Additional history exists Zoster/Shingles Vaccine (1 of 2) 2028 HIV Screening (Preventive Services) Completed 11/09/2016 HepA Vaccine Aged Out 07/19/2017, 11/09/2016 No lo nger eligible based on patient's age to complete this topic Hib Vaccine Aged Out No longer eligi ble based on patient's age to complete this topic IPV (Polio) Vaccine Aged Out No longe r eligible based on patient's age to complete this topic MCV4 Vaccine Aged Out No longer eligi ble based on patient's age to complete this topic Meningococcal B Vaccine Aged Out No l onger eligible based on patient's age to complete this topic Procedures Procedure Name Priority Date/Time Associated Diagnosis Comments MM MAMMOGRAM SCREENING BILAT W 3D AGAPITO W CAD Routine 11/24/2019 1:51 PM FUELS ENGINEER Visit for screening mammogram LIPID PANEL & DIRECT LDL (IF NEEDED) Routine 11/24/2019 9:20 AM FUELS ENGINEER Encounter for screening for lipoid disorders CYTOLOGY (PAP) Routine 11/23/2019 4:20 PM FUELS ENGINEER Pap smear for cervical cancer screening HIV-1 P24 AND HIV-1/HIV-2 ANTIBODIES Routine 11/09/2016 8:23 AM FUELS ENGINEER Screening for STDs (sexually transmitted diseases) from Last 3 Months or Most Recently Relevant to Health Maintenance Results * MM Mammogram Screening Bilat W 3D Agapito W CAD (11/24/2019 1:51 PM FUELS ENGINEER) Anatomical Region Laterality Modality Breast Bilateral Mammography Impressions 11/24/2019 2:11 PM FUELS ENGINEER : ACR BI-RADS Category 1: Negative RECOMMENDATION: Follow Up Imaging in 12 months - Bilateral The results and recommendations of this examination will be communicated to the patient. Narrative 11/24/2019 2:11 PM FUELS ENGINEER MM MAMMOGRAM SCREENING BILAT W 3D AGAPITO W CAD performed on 11/24/19 No comparisons were made when reading this study. Baseline. FINDINGS: Bilateral screening mammogram was performed with the assistance of Computer-Aided Detection and breast tomosynthesis. The breasts have scattered areas of fibroglandular density. There is no radiographic evidence of malignancy. Brit Butterfield PA-C RAD GLEN Final Result * (ABNORMAL) Lipid Panel and Direct LDL(If Needed) (11/24/2019 9:20 AM FUELS ENGINEER) Cholesterol 228(H) 0 - 199 mg/dL 11/24/2019 12:01 PM [facility] Triglyceride 143 <=149 mg/dL 11/24/2019 12:01 PM [facility] HDL Cholesterol 70 >=40 mg/dL 0 12:01 PM [facility] LDL, Calculated 129 <130 mg/dL 0 12:01 PM [facility] Non HDL Chol, Calculated 158 mg/dL 11/24/2019 12:01 PM [facility] Cholesterol/HDL Ratio 3.3 11/24/2019 12:01 PM [facility] Hours Fasting 12 11/24/2019 12:01 PM [facility] Blood Venipuncture / Unknown 11/24/2019 9:20 AM FUELS ENGINEER 11/24/2019 9:20 AM FUELS ENGINEER Brit Butterfield PA-C LAB_1 Final Result [facility] [address] [place] [address], [facility] [phone] [facility] [address] [place] [address], [facility] [phone] * PAP Test (11/23/2019 4:20 PM FUELS ENGINEER) Case Report Pap Case: [id number] Authorizing Provider: Brit Butterfield PA-C Collected: 11/23/2019 04:20 PM Ordering Location: [facility] Received: 11/23/2019 06:06 PM First Screen: Brittany Zamudio Specimen: Pap Test, Routine, Cervix/Endocervix 11/27/2019 1:48 PM FUELS ENGINEER [facility] Pap Specimen Adequacy Satisfactory for evaluation, endocervical/bob sformation zone component present. 11/27/2019 1:48 PM FUELS ENGINEER [facility] Pap Interpretation Negative for intraepithelial lesion or malignancy (NILM). 11/27/2019 1:48 PM FUELS ENGINEER [facility] at 1348 FUELS ENGINEER Gross Description The specimen is received in SurePath fixative and properly labeled. 1 Pap-stained SurePath slide is prepared. 11/27/2019 1:48 PM FUELS ENGINEER [facility] Pap Disclaimer The Pap test is a screening test designed to aid in the detection of cervical cancer and its precursor lesions. It is not a diagnostic procedure and should not be used as the sole means of detecting cervical cancer. Both false-positive and false-negative reports may occur. 11/27/2019 1:48 PM FUELS ENGINEER [facility] Embedded Images 0 1:48 PM FUELS ENGINEER [facility] Other Specimen Type ENTIRE ENDOCERVIX / Unknown 11/23/2019 4:20 PM FUELS ENGINEER 11/23/2019 6:06 PM FUELS ENGINEER Comment:LMP: No LMP recorded . (Menstrual status: Continuous hormonal contraception). Brit Butterfield PA-C LAB PATHOLOGY Final Result Performing Organization Address City/[facility] Co de Phone Number [facility] [address] [place] [phone] [place] [address] * HIV-1 p24 AND HIV-1/HIV-2 ANTIBODIES (11/09/2016 8:23 AM FUELS ENGINEER) HIV-1 p24 Ag and HIV-1/HIV-2 Ab Nonreactive Nonreactive PN SOFT 11/09/2016 8:23 AM FUELS ENGINEER 11/09/2016 12:28 PM FUELS ENGINEER Narrative PN SOFT - 11/09/2016 1:46 PM FUELS ENGINEER Performed at [address] [address] CLIA number [id number] Brit Butterfield PA-C LAB_1 Final Result Performing Organization Address City/[facility] Co de Phone Number PN SOFT [address] [place] [phone] from Last 3 Months or Most Recently Relevant to Health Maintenance Insurance [facility] PMAP CARE PMAP Care Teams Wire Drawing Setter Relationship Specialty Start Date End Date Brit Butterfield PA-C [address] [place] [address] PCP - General Physician Alliance Consultant 11/08/16
--- OUTSIDE RECORDS SUMMARY | 2025-04-05 05:40 | XMS_ITS | Encounter Summary ---
Author Organization [facility] Address [address] [place] [address]. [place] [address] Care Team Providers Care Herbicide Sprayer Name Role Phone No Ref-Primary, Physician Primary Care Provider Marianna Livingston GC Unavailable [phone] Giuliana Brady MD Unavailable Mil Juan GC Unavailable [phone] Encounter Details Date Type Department Care Team (Late Contact Info) Description 03/03/2025 MyC Medical Advice [facility] [address] [place] [address] [facility] Social History Tobacco Use Types Packs/Day Years Used Date Smoking Tobacco: Never Smokeless Tobacco: Never Alcohol Use Standard Drinks/Week Comments Yes 0 (1 standard drink = 0.6 oz pur e alcohol) Adolescent Education Answer Date Record ed Getting School Help Needed Not on file 07/19 Comments Unknown Sex and Gender Information Value Date Recorded Sex Assigned at Female 09/15/2020 7:56 PM FARM CROPS TEACHER Legal Sex Female 5:14 AM FARM CROPS TEACHER Gender Identity Female 09/15/2020 7:56 PM FARM CROPS TEACHER Sexual Orientation Straight 09/15/2020 7: 56 PM FARM CROPS TEACHER documented as of this encounter Plan of Treatment Upcoming Encounters Date Type Department Care Team ([facility] Contact Info) Description 08/06/2025 11:15 AM CDT Virtual Visit [facility] [address] [place] [phone] Giuliana Brady MD [facility] [address] [place] [address] Mil Juan GC [address] [place] [address] [phone] documented as of this encounter Visit Diagnoses Not on filedocumented in this encounter Care Teams Herbicide Sprayer Relationship Specialty Start Date End Date No Ref-Primary, Physician PCP - General 04/10/18 Marianna Livingston GC [address] [place] [address] [phone] Genetic Counselor Genetic Counselor, MS 11/27/24 Giuliana Brady MD [facility] [address] [place] [address] fitness director 11/27/24 Mil Juan GC [address] [place] [address] [phone] Genetic Counselor Genetics, Clinical 03/04/25 documented as of this encounter
[2025-04-05 05:42] VITALS: BP 130/93; PULSE 93; RESP 20; TEMP 36.7; O2SAT 97; BMI 39.7
[2025-04-05 06:02] VITALS: O2SAT 95
--- NOTE | 2025-04-05 06:02 | CRLHL7_ITS ---
For Patients: As a result of the Century Cures Act, medical imaging exams and procedure reports are released immediately into your electronic medical record. You may view this report before your referring provider. If you have questions, please contact your health care provider. Indication: Abdominal pain Technique: Upright and supine views the abdomen were acquired Comparison: March 26, 2023 Findings: No acute osseous abnormalities. Postsurgical changes of the left innominate bone. No significant pathologic calcifications. Surgical clips in the right upper quadrant. Nonspecific bowel gas pattern but no plain film findings to indicate ileus, obstruction or perforation. Impression: Nonspecific bowel gas pattern but no plain film findings to suggest ileus, obstruction or perforation. Dictated by Christopher Silverman MD @ 04/05/2025 6:27:20 AM (Electronically Signed)
[2025-04-05] MEDS: 0.9 % SODIUM CHLORIDE 1000 ml 1,000 ML IV (06:36)
[2025-04-05] MEDS: diphenhydrAMINE 50 MG/ML inj 25 MG IVP (06:37)
[2025-04-05] MEDS: KETOROLAC 30 MG/ML inj IVP (06:41)
[2025-04-05] MEDS: LORazepam 2 MG/ML inj 0.5 MG IVP (06:46)
[2025-04-05 06:48] LABS: Lactate* 1.8 mmol/L (0.5-1.9)
[2025-04-05] MEDS: PROMETHAZINE 25 MG/ML INJ 12.5 MG IVP (06:48)
--- NOTE | 2025-04-05 06:48 | ED_ITS ---
HPI - Abdominal Pain General Date Seen: 04/05/25 Chief Complaint: Abdominal Pain Stated Complaint: Upper left abdominal pain Time Seen by Provider: 04/05/25 05:45 Source: patient and family Mode of arrival: ambulatory Limitations: no limitations History of Present Illness HPI narrative: Patient is a very nice 44-year-old female who presents here with her significant other for left upper quadrant pain. There radiates to her lower back region. Has a history of a bowel obstruction in the past but also history of constipation. Has been seen by [facility] recently, given a diagnosis of bile induced diarrhea. History of multiple surgeries in the past, this acute episode of pain has been building over the course of the last 12-24 hours they just returned from [place]. Feels like a previous bowel obstruction. No vomiting, some nausea diarrhea as described with no blood. No dysuria frequency. No rashes no other family member sick. Did not take anything at home for the discomfort. In the past she has done very well with Phenergan, Toradol, fluids. She tends to get very sick with narcotics, does not want any Zofran Reglan, has would appear to be akathasia in the past. She has had a number of CT scans I counted least 3 in the last 3 years. We should try to be just somewhat judicious with radiation. Related Data Previous Rx's ?Medication ?Instructions ?Recorded cholecalciferol (vitamin D3) 1,250 1,250 mcg PO QWEEK 3 months #13 12/04/23 mcg (50,000 unit) capsule caps acetaminophen 325 mg tablet 1,000 mg (3.0769 x 325 mg) PO Q4H 12/17/23 PRN minor pain #100 tabs cyanocobalamin (vitamin B-12) 1,000 mcg IM .QMonth #10 mL 04/02/24 1,000 mcg/mL injection solution albuterol sulfate 90 mcg/actuation 2 puff inhalation Q 4-6H PRN 06/22/24 aerosol inhaler shortness of breath or wheez ing #8.5 grams epinephrine 0.3 mg/0.3 mL 0.3 ml IM ONCE #2 ea 4 injection, auto-injector ipratropium 0.5 mg-albuterol 3 mg 3 ml inhalation Q4-6 H PRN 12/10/24 (2.5 mg base)/3 mL nebulization shortness of breath or wheezing soln #90 mL amoxicillin 875 mg-potassium 1 tab PO BID #20 tabs clavulanate 125 mg tablet ketorolac 10 mg tablet 10 mg PO Q8H PRN pain 4 days #14 04/05/25 tabs lorazepam 0.5 mg tablet 0.5 mg PO TID PRN #14 tabs 0 04/05/25 promethazine 25 mg tablet 12.5 mg (1/2 x 25 mg) PO Q4- 6H PRN 04/05/25 #14 tabs Allergies Allergy/AdvReac Type Severity Reaction Status Date / Time adhesive tape Allergy Severe Hives Verified 03/15/25 11:16 bee pollen Allergy Severe Verified 03/15/25 11:16 bee venom protein (honey bee) Allergy Severe Verified 03/15/25 11:16 droperidol Allergy Unknown Verified 03/15/25 11:16 ondansetron Allergy Unknown Verified 03/15/25 11:16 prochlorperazine Allergy Unknown Anxiety Verified 03/15/25 11:16 risperidone Allergy Unknown Verified 03/15/25 11:16 scopolamine Allergy Unknown Verified 03/15/25 11:16 pfizer covid vaccine Allergy Severe Anaphylaxis Uncoded 03/15/25 11:16 Review of Systems Status of ROS Reports: 10 or more systems reviewed and unremarkable except as noted in History and below [facility] Medical History Family history of breast cancer ?Z80.3 - Family history of malignant neoplasm of breast (ICD-10) Anaphylactic reaction to bee sting ?T63.441A - Toxic effect of venom of bees, accidental (unintentional), initial encounter (ICD-10) Vitamin D deficiency ?E55.9 - Vitamin D deficiency, unspecified (ICD-10) 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 - Other intestinal malabsorption (ICD-10) B12 deficiency ?E53.8 - Deficiency of other specified B group vitamins (ICD-10) Polycystic ovary syndrome ?E28.2 - Polycystic ovarian syndrome (ICD-10) Migraine ?G43.909 - Migraine, unspecified, not intractable, without status migrainosus (ICD-10) History of severe pre-eclampsia ?Z87.59 - Personal history of other complications of , childbirth and the puerperium (ICD-10) History of female infertility ?Z87.42 - Personal history of other diseases of the female genital tract (ICD-10) Hip dysplasia ?Q65.89 - Other specified congenital deformities of hip (ICD-10) Body mass index (BMI) of 40.0 to 44.9 in adult ?Z68.41 - Body mass index [BMI] 40.0-44.9, adult (ICD-10) Amenorrhea ?N91.2 - Amenorrhea, unspecified (ICD-10) Surgical History S/P hysterectomy (12/17/23) ?Z90.710 - Acquired absence of both cervix and uterus (ICD-10) History of hip surgery ?Z98.890 - Other specified postprocedural states (ICD-10) Hx of abdominoplasty (~2018) ?Z98.890 - Other specified postprocedural states (ICD-10) Status post ovarian cystectomy (~1991) ?Z98.890 - Other specified postprocedural states (ICD-10) ?Z87.42 - Personal history of other diseases of the female genital tract (ICD-10) Status post laparoscopy (06/27/21) ?Z98.890 - Other specified postprocedural states (ICD-10) History of tonsillectomy (~1998) ?Z90.89 - Acquired absence of other organs (ICD-10) History of third molar tooth extraction ?K08.409 - Partial loss of teeth, unspecified cause, unspecified class (ICD- 10) History of laparoscopic cholecystectomy (~2016) ?Z90.49 - Acquired absence of other specified parts of digestive tract (ICD- 10) History of dilation and curettage ?Z98.890 - Other specified postprocedural states (ICD-10) History of appendectomy (~1991) ?Z90.49 - Acquired absence of other specified parts of digestive tract (ICD- 10) Family History Brother High blood pressure Mother High blood pressure Maternal Grandmother Uterine cancer Heart disease Breast cancer Aunt Breast cancer Daughter Factor 5 Leiden mutation, heterozygous Son Factor 5 Leiden mutation, heterozygous Factor II deficiency Son Factor 5 Leiden mutation, heterozygous Factor II deficiency Sister Seizure disorder Uncle Stroke Liver cancer Uncle No problems noted. Social History Narrative: Cis-gender, heterosexual, woman Relationship status: . Spouse: Carlos. 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 If yes: 1 of servings every 2-3 months. Illicit or Recreational drug use: No. Concerns for safety at home/work: No. Would like to discuss issues of abuse: No. Dietary restriction(s): No Exercise: Not regular. What is your current living situation?: I presently have a place to live Problems where you live: no known problems In the past 12 months, utilities in danger of being shut off: no In past 12 months, lack of transportation kept you from medical appts, meetings, work, or getting things needed for daily living: no In the past 12 mos, have been you worried that your food would run out before you had money to buy more?: never true In the past 12 mos, the food you bought just didn't last and you didn't have money to buy more?: never true Highest level of school completed/degree received: Associate degree: academic program Smoking Status: Never smoker Do you use any of these nicotine containing products: None Second hand tobacco smoke exposure: No How often do you have a drink containing alcohol: monthly or less Alcohol type: wine How many standard drinks containing alcohol do you have on a typical day: 1 or 2 How often do you have six or more drinks on one occasion: Never AUDIT-C Alcohol total score: 1 Non-prescribed substance use: denies use Caffeine: Yes How often does anyone, including family, friends and others, physically hurt you : never How often does anyone, including family, friends and others, insult or talk down to you: never How often does anyone, including family, friends and others, threaten you with harm: never How often does anyone, including family, friends and others, scream or curse at you: never service: No Exam Narrative: Exam Narrative: On examination in room 3, pupils equal round reactive to light nontoxic speaking to me normally. TMs are normal neck is supple, hydration status excellent, no lymphadenopathy, chest is clear bilaterally no wheezing crackles noted heart sounds are normal no clicks murmurs or gallops, her abdomen shows some mild move tenderness on deep palpation left upper quadrant and epigastric region. I do not see any peritoneal signs there is no masses, negative Mcpherson sign. Bowel sounds are notable. High-pitched, but fairly common in all areas. Moves all extremities independently and well. Skin reveals no petechiae rashes neurologically intact. Const: Vital Signs, click to edit/add: Vital Signs - 24 hr 04/05/25 05:42 04/05/25 06:02 Temperature 98.1 F Pulse Rate [Left P ulse Oximeter] 93 Respiratory Rate 20 Blood Pressure [Ri ght Upper Arm] 130/93 H Pulse Oximetry 97 95 Oxygen Delivery Me thod Room Air Course Course ED Course: I had a long discussion with the patient and her , she is feeling better, no high risk features are notable on her examination or her x-ray or her labs. It might be reasonable to treat her as an outpatient, Ativan seems to work very well with her along with the Phenergan I think close follow-up with her primary care physician tomorrow we will endeavor to make an appointment for her. We went over signs and symptoms of worsening such as increasing abdominal pain, vomiting, and passing stools, fevers chills or sweats all these things would necessitate a follow-up ER visit, and consideration of his CT scan, given the amount of CT scans and radiation she has had I think it is reasonable to hold off on this, she has always done very well with just supportive management. They were comfortable with this plan. Shared decision making was use. Vital Signs Vital signs: Initial Vital Signs Temperature 98.1 F 04/05/25 05:42 Temperature Source Temporal Artery Scan 04/05/25 05:42 Pulse Rate 93 04/05/25 05:42 Pulse Rhythm Regular 04/05/25 05:42 Respiratory Rate 20 04/05/25 05:42 Blood Pressure 130/93 H 04/05/25 05:42 Blood Pressure Mean 105 04/05/25 05:42 Blood Pressure Position Sitting 04/05/25 05:42 Pulse Oximetry 97 04/05/25 05:42 Oxygen Delivery Method Room Air 04/05/25 05:42 Vital Signs Temperature 98.1 F 04/05/25 05:42 Pulse Rate 93 04/05/25 05:42 Respiratory Rate 20 04/05/25 05:42 Blood Pressure 130/93 H 04/05/25 05:42 Pulse Oximetry 97 04/05/25 05:42 Oxygen Delivery Method Room Air 04/05/25 05:42 Temperature 98.1 F 04/05/25 05:42 Pulse Rate 93 04/05/25 05:42 Respiratory Rate 20 04/05/25 05:42 Blood Pressure 130/93 H 04/05/25 05:42 Pulse Oximetry 95 04/05/25 06:02 Oxygen Delivery Method Room Air 04/05/25 05:42 Medications Administered Medications: Discontinued Medications Generic Name Dose Route Start Last Admin Trade Name Yusufq PRN Reason Stop Dose Admin Diphenhydramine HCl 25 mg 04/05/25 06:04 04/05/25 06:37 Diphenhydramine 50 Mg/Ml Inj IVP 04/05/25 06:05 25 mg ONCE ONE Administration Sodium Chloride 1,000 mls @ 1,000 mls/hr 04/05/25 06:15 04/05/25 08:08 0.9 % Sodium Chloride 1000 Ml IV 04/05/25 07:14 Infused .Q1H KHADAR Infusion Ketorolac Tromethamine 30 mg 04/05/25 06:02 04/05/25 06:41 Ketorolac 30 Mg/Ml Inj IVP 04/05/25 06:03 30 mg ONCE ONE Administration Lorazepam 0.5 mg 04/05/25 06:04 04/05/25 06:46 Lorazepam 2 Mg/Ml Inj IVP 04/05/25 06:05 0.5 mg ONCE ONE Administration Promethazine HCl 12.5 mg 04/05/25 06:02 04/05/25 06:48 Promethazine 25 Mg/Ml Inj IVP 04/05/25 06:03 12.5 mg ONCE ONE Administration MDM - Abdominal Pain MDM Narrative Medical decision making narrative: During the evaluation of this patient I considered multiple differential diagnosis including life-threatening differentials which are appendicitis, aortic aneurysm, mesenteric ischemia, bowel perforation, ectopic , volvulus and bowel obstruction, other differential diagnosis include but are not limited to inflammatory bowel disease, cholecystitis, pancreatitis, hepatitis, gastritis, GERD, diverticulitis, peptic ulcer disease, pyelonephritis/UTI, renal colic/stone, pelvic inflammatory disease, cervicitis, endometritis, intrauterine , dysfunctional uterine bleeding, ovarian cyst/torsion, spontaneous as well as other etiologies I discussed with her, that we will start with just a plain x-ray, IV fluids Phenergan little bit of lorazepam, and some Toradol. This seemed to work very well with her, in the past Differential Diagnosis Differential diagnosis: Likely abdominal pain, acute appendicitis, calculus of kidney, constipation, diverticulitis, endometriosis, gastroenteritis, pancreatit is and small bowel obstruction Medical Records Attestation: I reviewed the patient's medical records. Lab Data Attestation: I reviewed the patient's lab results. Labs: Lab Results 04/05/25 Range/Units 06:43 WBC 9.12 (4.50-11.00) K/uL RBC 4.56 (4.00-5.20) m/uL Hgb 13.2 (12.0-16.0) gm/dL Hct 39.8 (33.0-51.0) % MCV 87 (80-100) fL MCH 29 (26-34) pg MCHC 33 (32-36) gm/dL RDW Coeff of Yarelis 12.3 (11.5-15.5) % Plt Count 287 (140-440) K/uL Neut % (Auto) 67.2 (42.0-72.0) % Lymph % (Auto) 20.3 (20-44) % [place] % (Auto) 7.5 (0.0-11.0) % Eos % (Auto) 3.3 (0.0-7.0) % Baso % (Auto) 0.3 (0.0-3.0) % Neut # (Auto) 6.13 (1.7-7.0) K/uL Lymph # (Auto) 1.85 (0.90-2.90) K/uL [place] # (Auto) 0.70 (0.00-0.90) K/UL Eos # (Auto) 0.30 (0.00-0.50) K/uL Baso # (Auto) 0.03 (0.00-0.30) K/uL Abs Immat Gran (auto) 0.13 (0.00-0.30) K/uL Imm/Tot Granulo (auto) 1.4 % Sodium 140 (135-149) mmol/L Potassium 3.9 (3.6-5.1) mmol/L Chloride 109 (96-114) mmol/L Carbon Dioxide 23 (20-32) mmol/L Anion Gap 8 (7-15) mEq/L BUN 13 (5-24) mg/dL Creatinine 0.6 (0.5-1.5) mg/dL Estimated Creat Clear 88.41 Estimated GFR 112 ml/min Glucose 106 (60-115) mg/dL Lactate 1.8 (0.5-1.9) mmol/L Calcium 8.7 (8.4-10.6) mg/dL Total Bilirubin 0.5 (0.1-1.5) mg/dL Direct Bilirubin 0.2 (0.0-0.5) mg/dL AST 24 (12-35) U/L ALT 26 (4-35) U/L Alkaline Phosphatase 69 (40-150) U/L C-Reactive Protein 0.5 (0.5-1.0) mg/dL Total Protein 6.8 (6.0-8.3) g/dL Albumin 4.0 (3.3-5.0) g/dL Amylase 61 (18-89) U/L Lipase 75 (23-300) U/L Procalcitonin 0.05 (<0.50) ng/mL Urine Color Yellow (Yellow) Urine Appearance Clear (Clear) Urine pH 5.5 (5.0-8.5) Ur Specific [place] >= 1.030 (1.000-1.030) Urine Protein Negative (Negative) Urine Glucose (UA) Negative (Negative) Urine Ketones Negative (Negative) Urine Blood Negative (Negative) Urine Nitrite Negative (Negative) Urine Bilirubin Negative (Negative) Urine Urobilinogen 0.2 (0.2-1.0) Ur Leukocyte Esterase Negative (Negative) Urine RBC 0-2 (0-2) Urine WBC 0-2 (0-5) Ur Squamous Epith Cells Few (None-Few) Amorphous Sediment Few A (None) Urine Bacteria Few A (None) Urine Mucus Few A (None) Imaging Data Abdominal x-ray: Attestation: I have reviewed the pertinent imaging results. My impression: No evidence of acute problem Radiologist's impression: [facility] [address] [place] [address] Diagnostic Imaging Report Patient: Adeline Floyd MR#: [id number] : 1980 Acct:[id number] Loc: ED Service Date: 04/05/[address]: Ordering Physician: Zachery Campbell M.D. Date of Service: 04/05/25 Procedure(s): XR abdomen min 2V Accession Number(s): [id number] cc: Gonzalez Marquis M.D.; Zachery Campbell M.D.~ For Patients: As a result of the Cures Act, medical imaging exams and procedure reports are released immediately into your electronic medical record. You may view this report before your referring provider. If you have questions, please contact your health care provider. Indication: Abdominal pain Technique: Upright and supine views the abdomen were acquired Comparison: March 26, 2023 Findings: No acute osseous abnormalities. Postsurgical changes of the left innominate bone. No significant pathologic calcifications. Surgical clips in the right upper quadrant. Nonspecific bowel gas pattern but no plain film findings to indicate ileus, obstruction or perforation. Impression: Nonspecific bowel gas pattern but no plain film findings to suggest ileus, obstruction or perforation. Dictated by Christopher Silverman MD @ 04/05/2025 6:27:20 AM (Electronically Signed) Discharge Plan Discharge Clinical Impression: Abdominal pain Patient Disposition: Home w/ Parent or Adult Condition: Improved Instructions: Abdominal Pain (ED), Ileus (ED) Additional Instructions: Home, rest, clear fluids, Ativan, Phenergan, Toradol for the discomfort. Please return here if increasing abdominal pain fevers chills or sweats, we will make you an appointment to see Dr. Marquis tomorrow. Your told me that she have a job interview tomorrow I do not know that is a such a great idea especially if her on the medications as you will be super tired. Fevers chills vomiting or inability to pass any stool or gas then you should come back is this is more of a bowel obstruction. Obviously if the pain is getting out of control also on then consideration for a CT scan. Follow up appointment is scheduled at the [facility] on 04/06 with a 3pm appointment time. Please arrive at 2:50pm to complete paperwork. If you have any questions or need to reschedule, please call [phone]. [facility] [address] [place] [address] Prescriptions: New lorazepam 0.5 mg tablet 0.5 mg PO TID PRNQty: 14 0RF ketorolac 10 mg tablet 10 mg PO Q8H PRN (Reason: pain) 4 Days Qty: 14 0RF promethazine 25 mg tablet 12.5 mg PO Q4-6H PRNQty: 14 0RF No Action epinephrine 0.3 mg/0.3 mL auto-injector 0.3 ml IM ONCE Qty: 2 5RF Rx Instructions: as a single dose; may repeat once albuterol sulfate 90 mcg/actuation HFA aerosol inhaler 2 puff inhalation Q4-6H PRN (Reason: shortness of breath or wheezing) Qty: 8.5 1RF cholecalciferol (vitamin D3) 1,250 mcg (50,000 unit) capsule 1,250 mcg PO QWEEK 90 Days Qty: 13 3RF ipratropium-albuterol 0.5 mg-3 mg(2.5 mg base)/3 mL solution for nebulization 3 ml inhalation Q4-6H PRN (Reason: shortness of breath or wheezing) Qty: 90 0RF amoxicillin-pot clavulanate 875-125 mg tablet 1 tab PO BID Qty: 20 0RF acetaminophen 325 mg Tablet 1,000 mg PO Q4H PRN (Reason: minor pain) Qty: 100 0RF cyanocobalamin (vitamin B-12) 1,000 mcg/mL solution 1,000 mcg IM .QMonth Qty: 10 1RF Rx Instructions: Include 25g 1 inch needles Follow Up/Referrals: Gonzalez Marquis MD [Primary Care Provider, Family Practice] Stand Alone [facility]: [facility] Info Inst[facility]
[2025-04-05 06:49] LABS: Basophils Absolute Auto 0.03 K/uL (0.00-0.30); Basophils Percent Auto 0.3 % (0.0-3.0); Eosinophils Percent Auto 3.3 % (0.0-7.0); Hematocrit 39.8 % (33.0-51.0); Hemoglobin* 13.2 gm/dL (12.0-16.0); Immature Granulocytes Abs Auto 0.13 K/uL (0.00-0.30); Immature Granulocytes Pct Auto 1.4 %; Lymphocytes Absolute Auto 1.85 K/uL (0.90-2.90); Lymphocytes Percent Auto 20.3 % (20-44); Mean Corpuscular HGB Conc 33 gm/dL (32-36); Mean Corpuscular Hemoglobin 29 pg (26-34); Mean Corpuscular Volume 87 fL (80-100); Monocytes Percent Auto 7.5 % (0.0-11.0); Neutrophils Absolute Auto 6.13 K/uL (1.7-7.0); Neutrophils Percent Auto 67.2 % (42.0-72.0); Platelet Count* 287 K/uL (140-440); RDW Coefficient of Variation % 12.3 % (11.5-15.5); Red Blood Count 4.56 m/uL (4.00-5.20); White Blood Count* 9.12 K/uL (4.50-11.00)
[2025-04-05 06:52] LABS: Appearance Urine Clear (Clear); Bilirubin Urine Negative (Negative); Blood Urine Negative (Negative); Color Urine Yellow (Yellow); Glucose Urine Negative (Negative); Ketones Urine Negative (Negative); Leukocyte Esterase Urine Negative (Negative); Nitrite Urine Negative (Negative); Protein Urine Negative (Negative); Specific Gravity Urine >= 1.030 (1.000-1.030); Urobilinogen Urine 0.2 (0.2-1.0); pH Urine 5.5 (5.0-8.5)
[2025-04-05 06:55] LABS: Amorphous Sediment Urine Few; Bacteria Urine Few; Mucus Urine Few; RBC Urine 0-2 (0-2); Squamous Epithelial Cell Urine Few (None-Few); WBC Urine 0-2 (0-5)
[2025-04-05 06:56] LABS: Slide Review Reflex No
[2025-04-05 07:05] LABS: Chloride* 109 mmol/L (96-114)
[2025-04-05 07:06] LABS: Potassium* 3.9 mmol/L (3.6-5.1); Sodium* 140 mmol/L (135-149)
[2025-04-05 07:08] LABS: Amylase* 61 U/L (18-89); Blood Urea Nitrogen* 13 mg/dL (5-24); Creatinine* 0.6 mg/dL (0.5-1.5); Est. Creatinine Clearance* 88.41; Estimated Glomerular Filt Rate 112 ml/min
[2025-04-05 07:09] LABS: Alanine Aminotransferase* 26 U/L (4-35); Alkaline Phosphatase* 69 U/L (40-150); Anion Gap 8 mEq/L (7-15); Aspartate Amino Transferase* 24 U/L (12-35); Bilirubin Direct* 0.2 mg/dL (0.0-0.5); Bilirubin Total* 0.5 mg/dL (0.1-1.5); Calcium* 8.7 mg/dL (8.4-10.6); Carbon Dioxide* 23 mmol/L (20-32); Glucose* 106 mg/dL (60-115); Lipase* 75 U/L (23-300); Total Protein* 6.8 g/dL (6.0-8.3)
[2025-04-05 07:12] LABS: C Reactive Protein* 0.5 mg/dL (0.5-1.0)
[2025-04-05 07:25] LABS: Procalcitonin* 0.05 ng/mL (<0.50)
== END 2025-04-05 08:21 | disposition home or self-care (01) ==
PROVIDERS: Emergency Provider Family Medicine; PCP Family Medicine
DX: R10.12 Left upper quadrant pain (principal)
CPT/HCPCS: 36415; 74019; 80048; 80076; 81001; 82150; 83605; 83690; 84145; 85025; 86140; 87086; 94761; 96374; 96375; 99284; J1200; J1885; J2060; J2550; J7030

== ENCOUNTER 2025-04-06 16:05 | Outpatient (CLI) | payer OTHER, SELFPAY ==
--- NOTE | 2025-04-06 16:30 | CRLHL7_ITS ---
For Patients: As a result of the Cures Act, medical imaging exams and procedure reports are released immediately into your electronic medical record. You may view this report before your referring provider. If you have questions, please contact your health care provider. INDICATION: Left upper quadrant abdominal pain TECHNIQUE: Axial images were obtained from the diaphragm to the pubic symphysis. Reformats were obtained in the coronal and sagittal plane. IV Contrast: 110 cc Isovue 370 Oral Contrast: None COMPARISON: Abdomen and pelvis CT 11/19/2024 FINDINGS: Lower chest: Basilar discoid atelectasis. Liver: Normal in contour with diffusely decreased density of the liver. Gallbladder and bile ducts: Status post cholecystectomy. Spleen: Unremarkable. Normal in size without mass. Pancreas: Unremarkable. No mass or inflammation. Adrenal glands: Unremarkable. No nodules. Kidneys: Unremarkable. No masses, stones, or hydronephrosis. Vasculature: Unremarkable. GI tract: The stomach is unremarkable. Small bowel decompressed. Colonic diverticulosis. Fluid noted within the colon. Pelvis: Status post hysterectomy. Bones: Degenerative disc disease lumbar spine. Status post screw fixation of the left iliac wing. IMPRESSION: 1. Colonic diverticulosis without CT evidence of diverticulitis. Fluid noted within the colon which can be seen with an enteritis/diarrheal illness. 2. Moderate hepatic steatosis. Please note that all CT scans at this facility use dose modulation, iterative reconstruction, and/or weight-based dosing when appropriate to reduce radiation dose to as low as reasonably achievable. Dictated by Aj Kay MD @ 04/07/2025 9:18:23 AM (Electronically Signed)
== END 2025-04-06 16:06 | disposition home or self-care (01) ==
LOC: CT 16:06
PROVIDERS: PCP Family Medicine; Visit Provider Family Medicine
DX: R10.12 Left upper quadrant pain (principal); K57.30 Diverticulosis of large intestine without perforation or abscess without bleeding; K76.0 Fatty (change of) liver, not elsewhere classified
CPT/HCPCS: 74177; Q9967

== ENCOUNTER 2025-07-16 08:40 | Outpatient (CLI) | payer OTHER, SELFPAY | END 2025-07-16 08:41 | disposition home or self-care (01) | LOC: NFLDREF 07-21 12:09 | PROVIDERS: PCP Family Medicine; Referring Provider Family Medicine; Visit Provider Physician Assistant | DX: E55.9 Vitamin D deficiency, unspecified (principal); E53.8 Deficiency of other specified B group vitamins; Z13.6 Encounter for screening for cardiovascular disorders; Z13.9 Encounter for screening, unspecified; Z13.29 Encounter for screening for other suspected endocrine disorder | CPT/HCPCS: 80053; 80061; 84443 ==

== ENCOUNTER 2025-10-18 08:56 | Outpatient (CLI) | payer OTHER, SELFPAY ==
--- NOTE | 2025-10-18 09:15 | CRLHL7_ITS ---
For Patients: As a result of the Century Cures Act, medical imaging exams and procedure reports are released immediately into your electronic medical record. You may view this report before your referring provider. If you have questions, please contact your health care provider. INDICATION: BILATERAL SCREENING MAMMOGRAM, ASYMPTOMATIC 44 Y/O FEMALE COMPARISON: 08/24/2024, 08/22/2023, 08/21/2022 TECHNIQUE: Digital mammogram in CC and MLO projections including computer-aided detection (CAD) and tomosynthesis. BREAST COMPOSITION: There are scattered areas of fibroglandular density. FINDINGS: No suspicious findings. ASSESSMENT: BI-RADS 1 Negative RECOMMENDATION: Annual screening mammogram. A lay language report of this examination will be provided to the patient. Dictated by: Caryl Sandhu MD @ 10/19/2025 10:04:29 (Electronically Signed)
== END 2025-10-18 08:57 | disposition home or self-care (01) ==
LOC: MAMMO 08:56
PROVIDERS: PCP Family Medicine; Visit Provider Family Medicine
DX: Z12.31 Encounter for screening mammogram for malignant neoplasm of breast (principal)
CPT/HCPCS: 77063; 77067